=== PATIENT | female | born 1945 | race Caucasian/White ===

== ENCOUNTER 2016-11-03 08:55 | Day surgery (SDC) | payer OTHER ==
[~2016-11-03] VITALS: Ht 162.6 cm; Wt 45.5 kg
[~2016-11-03 08:55] MED LIST: LAMO100 PO; LEVO88TA2 PO; LITH300 PO; METR500T10 PO; PRAV40TA PO; Propranolol; cane
[2016-11-03 09:39] VITALS: BP 151/62; PULSE 65; RESP 20; TEMP 97.9; O2SAT 99
[2016-11-03] MEDS ORDERED: LEVO88TA2 PO (09:57)
[2016-11-03] MEDS ORDERED: LITH300T3 PO (09:57)
[2016-11-03] MEDS ORDERED: PRAV40TA PO (09:57)
[2016-11-03] MEDS ORDERED: LAMO100 PO (09:57)
[2016-11-03] MEDS ORDERED: SODIUM CHLOR 0.9% 1000 ML IV SCH (10:00)
[2016-11-03 10:50] VITALS: BP 147/52; PULSE 61; RESP 18; TEMP 97.9; O2SAT 96
--- NOTE | 2016-11-03 11:38 | RADRPT ---
EXAM DATE/TIME: 11/03/2016 10:24 [place] COMPARISON: No previous studies available for comparison. INDICATIONS : Pericardial effusion. RADIATION DOSE: 5.76 CTDIvol (mGy) MEDICAL HISTORY : Cardiovascular disease. SURGICAL HISTORY : None. ENCOUNTER: Initial ACUITY: 1 day PAIN SCALE: 0/10 LOCATION: Chest TECHNIQUE: Volumetric scanning of the chest was performed. Using automated exposure control and adjustment of the mA and/or kV according to patient size, radiation dose was kept as low as reasonab ly achievable to obtain optimal diagnostic quality images. FINDINGS: There are no suspicious lung lesions identified. There is a persistent small pericardial effusion ev ident that is too small aspirate by CT. There is no window to do such. Portion of liver and spleen identified are marcel e of focal defects. CONCLUSION: Small pericardial effusion measuring in greatest dimension approximately 1 cm, most of the fluid is i nferior. I do not have a safe window in which to drain. Osei Parker MD FACR on November 03, 2016 at 11:24 Board Certified Radiologist. This report was verified electronically.
== END 2016-11-03 11:00 | disposition home or self-care (01) ==
LOC: HRAD 08:55 → HRIP 09:07 → HRAD 11:00
PROVIDERS: ATTEND Internal Medicine Interventional Cardiology
DX: I31.3 Pericardial effusion (noninflammatory) (principal); I25.10 Atherosclerotic heart disease of native coronary artery without angina pectoris
CPT/HCPCS: 71250

== ENCOUNTER 2017-02-15 13:52 | Inpatient (IN) | payer OTHER, MEDICARE ==
[~2017-02-15] VITALS: Ht 160 cm; Wt 42.5 kg
[~2017-02-15 13:52] MED LIST changes: -LITH300 PO; +LITH300T3 PO; -METR500T10 PO
[2017-02-15 13:53] VITALS: BP 133/60; PULSE 104; RESP 20; TEMP 99; O2SAT 96
[2017-02-15] MEDS ORDERED: SODIUM CHLOR 0.9% 1000 ML INJ 1,000 ML IV ONE (15:15)
--- NOTE | 2017-02-15 15:47 | PD ---
HPI Chief Complaint: General Weakness Time Seen by Provider: 15:12 Travel History International Travel<30 days: No Contact w/Intl Traveler<30days: No Traveled to known affect area: No History of Present Illness HPI This is a 71-year-old female who has a history of bipolar disorder who presents to the emergency department with depression, weight loss and decreased appetite. Her daughter says that she is lost a significant amount of weight, and won't eat. She put food in her mouth but she won't swallow it. She says she has a long history of bipolar disorder and has required hospitalizations in the past. She says this is the worst she's ever seen her. The patient reports that she has a problem with herself. She doesn't have any pain or nausea. She does acknowledge being depressed and she says she's not been sleeping. Evidently her boyfriend was just diagnosed with lung cancer recently although the patient doesn't think this is impacting what's going on. She did recently have some changes to her medications but the family is not sure what they were. PFSH Past Medical History Arthritis: No Asthma: No Autoimmune Disease: No Blood Disorders: No Bipolar Disorder: Yes Anxiety: Yes Heart Rhythm Problems: No Cancer: No Cardiovascular Problems: Yes High Cholesterol: Yes Chemotherapy: No Chest Pain: No Congestive Heart Failure: Yes COPD: No Cerebrovascular Accident: No Coronary Artery Disease: Yes Diabetes: No Diminished Hearing: No Endocrine: Yes Gastrointestinal Disorders: Yes GERD: No Glaucoma: No Genitourinary: No Headaches: No Hepatitis: No Hiatal Hernia: No Hypertension: No Immune Disorder: Yes Kidney Stones: Yes Musculoskeletal: Yes Neurologic: Yes Psychiatric: No Reproductive: No Respiratory: No Immunizations Current: No Migraines: No Myocardial Infarction: No Radiation Therapy: No Renal Failure: No Seizures: No Sickle Cell Disease: No Sleep Apnea: No Thyroid Disease: Yes Ulcer: No ?: Not Menopausal: Yes Past Surgical History Abdominal Surgery: No (Kidney) AICD: No Appendectomy: No Arteriovenous Shunt: No Cardiac Surgery: No Cholecystectomy: No Ear Surgery: No Endocrine Surgery: No Eye Surgery: No Genitourinary Surgery: No Gynecologic Surgery: No Insulin Pump: No Joint Replacement: No Neurologic Surgery: Yes (CERVICAL FUSION) Oral Surgery: No Pacemaker: No Thoracic Surgery: Yes (cardiac cath diagnostic) Other Surgery: Yes Social History Alcohol Use: No Tobacco Use: Yes (1/2 PPD) Substance Use: No Allergies-Medications (Allergen,Severity, Reaction): Coded Allergies: Penicillin (Verified Allergy, Intermediate, Hives, 11/03/16) Contrast Media (Verified Allergy, Mild, PT DOES NOT REMEMBER, 11/03/16) Reported Meds & Prescriptions Reported Meds & Active Scripts Active [cane] Pt is in need of cane for gait disturbance and frequent falls. Please provide one. [Propranolol] could not remember dose but TID Reported Pravachol (Pravastatin) 40 Mg Tab 40 Mg PO DAILY [place] Carbonate 300 Mg Tab 300 Mg PO BID Levothyroxine (Levothyroxine Sodium) 88 Mcg Tab 88 Mcg PO DAILY Lamictal (Lamotrigine) 100 Mg Tab 100 Mg PO BID Review of Systems Except as stated in HPI: all other systems reviewed are Neg Physical Exam Narrative GENERAL: Frail appears older than stated age, unwell-appearing SKIN: Focused skin assessment warm and dry. HEAD: Atraumatic. Normocephalic. EYES: Pupils equal and round. No injection or drainage. ENT: Moist mucous membranes NECK: Trachea midline. CARDIOVASCULAR: Regular rate and rhythm. No murmur appreciated. RESPIRATORY: Clear to auscultation. Breath sounds equal bilaterally. GASTROINTESTINAL: Abdomen soft, non-tender, nondistended. MUSCULOSKELETAL: No obvious deformities. NEUROLOGICAL: Awake and alert. No obvious cranial nerve deficits. Moving all extremities. PSYCHIATRIC: Depressed mood, flat affect Data Data Last Documented VS Vital Signs Date Time Temp Pulse Resp B/P Pulse Ox O2 Delivery O2 Flow Rate FiO2 02/15/17 16:05 16 98 Room Air 02/15/17 13:53 99.0 104 133/60 Orders Complete Blood Count With Diff (02/15/17 15:12) Comprehensive Metabolic Panel (02/15/17 15:12) Drug Screen, Random Urine (02/15/17 15:12) Alcohol (Ethanol) (02/15/17 15:12) Sodium Chlor 0.9% 1000 Ml Inj (Ns 1000 M (02/15/17 15:15) Thyroid Stimulating Hormone (02/15/17 15:13) Lamictal (Lamotrigine) (02/15/17 15:13) Urinalysis - C+S If Indicated (02/15/17 15:13) Psych Screen (8/10/17 16:37) Labs Laboratory Tests Test 02/15/17 15:45 White Blood Count 6.9 TH/MM3 Red Blood Count 4.59 MIL/MM3 Hemoglobin 13.5 GM/DL Hematocrit 40.3 % Mean Corpuscular Volume 87.9 FL Mean Corpuscular Hemoglobin 29.4 PG Mean Corpuscular Hemoglobin 33.4 % Concent Red Cell Distribution Width 13.2 % Platelet Count 210 TH/MM3 Mean Platelet Volume 9.6 FL Neutrophils (%) (Auto) 70.8 % Lymphocytes (%) (Auto) 21.9 % Monocytes (%) (Auto) 5.8 % Eosinophils (%) (Auto) 0.6 % Basophils (%) (Auto) 0.9 % Neutrophils # (Auto) 4.9 TH/MM3 Lymphocytes # (Auto) 1.5 TH/MM3 Monocytes # (Auto) 0.4 TH/MM3 Eosinophils # (Auto) 0.0 TH/MM3 Basophils # (Auto) 0.1 TH/MM3 CBC Comment DIFF FINAL Differential Comment Urine Color YELLOW Urine Turbidity CLEAR Urine pH 5.5 Urine Specific [place] 1.019 Urine Protein 30 mg/dL Urine Glucose (UA) NEG mg/dL Urine Ketones 150 mg/dL Urine Occult Blood SMALL Urine Nitrite NEG Urine Bilirubin NEG Urine Urobilinogen LESS THAN 2.0 MG/DL Urine Leukocyte Esterase NEG Urine RBC 2 /hpf Urine WBC 1 /hpf Urine Mucus FEW /lpf Microscopic Urinalysis Comment CULT NOT INDICATED Sodium Level 138 MEQ/L Potassium Level 4.0 MEQ/L Chloride Level 101 MEQ/L Carbon Dioxide Level 20.1 MEQ/L Anion Gap 17 MEQ/L Blood Urea Nitrogen 16 MG/DL Creatinine 0.67 MG/DL Estimat Glomerular Filtration 87 ML/MIN Rate Random Glucose 71 MG/DL Calcium Level 9.9 MG/DL Total Bilirubin 0.4 MG/DL Aspartate Amino Transf 28 U/L (AST/SGOT) Alanine Aminotransferase 20 U/L (ALT/SGPT) Alkaline Phosphatase 107 U/L Total Protein 8.0 GM/DL Albumin 4.0 GM/DL Urine Opiates Screen NEG Urine Barbiturates Screen NEG Urine Amphetamines Screen NEG Urine Benzodiazepines Screen NEG Urine Cocaine Screen NEG Urine Cannabinoids Screen NEG Ethyl Alcohol Level 3 MG/DL MDM Medical Decision Making Medical Screen Exam Complete: Yes Emergency Medical Condition: Yes Interpretation(s) Temperature is 99.0, mild tachycardia No leukocytosis Electrolytes are reassuring Urinalysis: No infection Drug screen is negative Alcohol is negative Differential Diagnosis Bipolar disorder, depression, urinary tract infection, electrolyte abnormality Narrative Course This is a 71-year-old female who has a history of bipolar disorder who presents to the emergency department with decreased appetite as well as increasing depression. She appears very depressed on exam, makes poor eye contact, has flat affect, and doesn't appear well. Labs are all unremarkable. I do think this is related to her underlying psychiatric illness and she'll likely benefit from psychiatric admission. Vera Gonsalez MD Feb 15, 2017 15:47
[2017-02-15 16:11] LABS: AUTOMATED NEUTROPHIL # 4.9 TH/MM3 (1.8-7.7); BASOPHIL # 0.1 TH/MM3 (0-0.2); BASOPHIL % 0.9 % (0.0-2.0); EOSINOPHIL % 0.6 % (0.0-4.0); HEMATOCRIT 40.3 % (35.0-46.0); HEMO FLAGS DIFF FINAL; LYMPH % 21.9 % (9.0-44.0); LYMPHOCYTE # 1.5 TH/MM3 (1.0-4.8); MEAN CELL VOLUME 87.9 FL (80.0-100.0); MEAN CORPUSCULAR HEMOGLOBIN 29.4 PG (27.0-34.0); MEAN CORPUSCULAR HGB CONC 33.4 % (32.0-36.0); MONO % 5.8 % (0.0-8.0); NEUT % 70.8 % (16.0-70.0); PLATELET COUNT 210 TH/MM3 (150-450); RED BLOOD COUNT 4.59 MIL/MM3 (4.00-5.30); RED CELL DISTRIBUTION WIDTH 13.2 % (11.6-17.2); WHITE BLOOD COUNT 6.9 TH/MM3 (4.0-11.0)
[2017-02-15 16:22] LABS: BLOOD, URINE SMALL (NEG); COMMENT (UR) CULT NOT INDICATED; CULTURE IF INDICATED CULT NOT INDICATED; GLUCOSE,URINE NEG (NEG); KETONE, URINE 150 mg/dL (NEG); MUCUS URINE FEW /lpf (OCC); NITRITE,URINE NEG (NEG); PH, URINE 5.5 (5.0-8.5); URINE COLOR YELLOW (YELLW/STRAW)
[2017-02-15 16:30] LABS: ALT (GPT) 20 U/L (10-53); ANION GAP 17 MEQ/L (5-15); AST (GOT) 28 U/L (15-37); BICARBONATE 20.1 MEQ/L (21.0-32.0); BLOOD UREA NITROGEN 16 MG/DL (7-18); CHLORIDE 101 MEQ/L (98-107); GLOMERULAR FILTRATION RATE 87 ML/MIN (>89); SODIUM (NA) 138 MEQ/L (136-145)
[2017-02-15 16:32] LABS: ALCOHOL 3 MG/DL (0-5); ALKALINE PHOSPHATASE 107 U/L (45-117); TOTAL BILIRUBIN ADULT 0.4 MG/DL (0.2-1.0)
[2017-02-15 17:48] VITALS: BP 122/56; PULSE 69; RESP 18; O2SAT 97
--- NOTE | 2017-02-15 18:01 | PD ---
History of Present Illness Chief Complaint: General Weakness Time Seen by Provider: 17:00 Travel History International Travel<30 Days: No Contact w/Intl Traveler<30days: No Known affected area: No Legal Status Legal Status: Voluntary History of Present Illness: History of Present Illness HPI This is a 71-year-old female with a history of bipolar disorder, multiple psychiatric hospitalizations who presents to the emergency department on a voluntary status with complaints of depression,decreased appetite, poor intake with associated weight loss, low energy, anhedonia, no motivation, wanting to sleep all day but unable to do so, generalized weakness with increased difficulty walking. Recent stressors include her boyfriend of 30 years was just diagnosed with lung cancer although the patient doesn't think this isn't contributing to her depression. Her psychiatrist of many years, Dr. Schwab is retiring and the patient transferred her care to Dr. Patel. She recently had some changes to her medications including discontinuing [place] and Abilify. She tells me the new provider felt that she was was overmedicated. EMR is reviewed. no previous contact with [facility] psychiatry. Patient is seen . Daughter remains at bedside and provides most of the information as patient responds to most questions with " I don't know". Daughter reports that the patient has been depressed in the past but that this is the worse she has ever seen her. She also reports that patient has had medication induced tremors in the past. Patient is alert, oriented to person states it is the year 1999. Appears cachectic. Dressed in hospital gown and maintaining basic hygiene. She knows that [place] is the president. Her speech is very soft . She answers most questions with " i don't know " and defers to her daughter. Does not initiate interaction. Affect is blunted. Mood depressed. Denies any hallucinations. I cannot elicit any delusional content,no paranoia. She denies suicidal or homicidal ideation, intent or plan. Attention and concentration are decreased. PFSH Past Medical History Arthritis: No Asthma: No Autoimmune Disease: No Blood Disorders: No Bipolar Disorder: Yes Anxiety: Yes Heart Rhythm Problems: No Cancer: No Cardiovascular Problems: Yes High Cholesterol: Yes Chemotherapy: No Chest Pain: No Congestive Heart Failure: Yes COPD: No Cerebrovascular Accident: No Coronary Artery Disease: Yes Diabetes: No Diminished Hearing: No Endocrine: Yes Gastrointestinal Disorders: Yes GERD: No Glaucoma: No Genitourinary: No Headaches: No Hepatitis: No Hiatal Hernia: No Hypertension: No Immune Disorder: Yes Kidney Stones: Yes Musculoskeletal: Yes Neurologic: Yes Psychiatric: No Reproductive: No Respiratory: No Immunizations Current: No Migraines: No Myocardial Infarction: No Radiation Therapy: No Renal Failure: No Seizures: No Sickle Cell Disease: No Sleep Apnea: No Thyroid Disease: Yes Ulcer: No ?: Not Menopausal: Yes Past Surgical History Abdominal Surgery: No (Kidney) AICD: No Appendectomy: No Arteriovenous Shunt: No Cardiac Surgery: No Cholecystectomy: No Ear Surgery: No Endocrine Surgery: No Eye Surgery: No Genitourinary Surgery: No Gynecologic Surgery: No Insulin Pump: No Joint Replacement: No Neurologic Surgery: Yes (CERVICAL FUSION) Oral Surgery: No Pacemaker: No Thoracic Surgery: Yes (cardiac cath diagnostic) Other Surgery: Yes Psychiatric History Psychiatric History Hx Psychiatric Treatment: First psychiatric hospitalization forty years ago for what appears to be a depressed episode. Reports approximately 15 previous hosp with last one twenty years ago. Has been a patietn of dr Schwab until recent. Saw the UNDERWRITING ASSISTANT at dr. gray office. History of Inpatient Treatment: Yes Guns or firearms in home: No Social History Lives with her boyfriend of 30 years. Daughter lives out of state. Hx Alcohol Use: No Hx Tobacco Use: Yes (1/2 PPD) Hx Substance Use: No Hx of Substance Use Treatment: No Family Psychiatric History Unknown Allergies-Medications (Allergen,Severity, Reaction): Coded Allergies: Penicillin (Verified Allergy, Intermediate, Hives, 11/03/16) Contrast Media (Verified Allergy, Mild, PT DOES NOT REMEMBER, 11/03/16) Reported Meds & Prescriptions Reported Meds & Active Scripts Active [cane] Pt is in need of cane for gait disturbance and frequent falls. Please provide one. [Propranolol] could not remember dose but TID Reported Pravachol (Pravastatin) 40 Mg Tab 40 Mg PO DAILY [place] Carbonate 300 Mg Tab 300 Mg PO BID Levothyroxine (Levothyroxine Sodium) 88 Mcg Tab 88 Mcg PO DAILY Lamictal (Lamotrigine) 100 Mg Tab 100 Mg PO BID Review of Systems Constitutional: COMPLAINS OF: Fatigue, Weight loss Neurologic: COMPLAINS OF: Tremor (intermittent. Not present during this examination.), Poor Balance Psychiatric: COMPLAINS OF: Depression Exam Alert: Yes [place]: Person, Place, Date (partial) Mood: Depressed (severely depressed mood) Affect: Blunted Speech: Clear (very soft and impoverished) Eye Contact: Indirect Memory Intact: Comment (Not formally tetsed) Hallucinations: Other (deneis) Delusions: No Suicidal: Ideation (deneis ) Homicidal: Ideation (deneis) Insight/Judgement Fair. Not impaired MDM Medical Decision Making Medical Record Reviewed: Yes Assessment/Plan This is a 71-year-old female with a history of bipolar disorder, multiple psychiatric hospitalizations who presents to the emergency department on a voluntary status with complaints of depression,decreased appetite, poor intake with associated weight loss, low energy, anhedonia, no motivation, wanting to sleep all day but unable to do so, generalized weakness with increased difficulty walking. At this time the patient meets criteria for increased level of care in inpatient setting for further evaluation, mood stabilization and adjustment of current psychiatric medications. She agrees to voluntary admission. Orders Complete Blood Count With Diff (02/15/17 15:12) Comprehensive Metabolic Panel (02/15/17 15:12) Drug Screen, Random Urine (02/15/17 15:12) Alcohol (Ethanol) (02/15/17 15:12) Sodium Chlor 0.9% 1000 Ml Inj (Ns 1000 M (02/15/17 15:15) Thyroid Stimulating Hormone (02/15/17 15:13) Lamictal (Lamotrigine) (02/15/17 15:13) Urinalysis - C+S If Indicated (02/15/17 15:13) Psych Screen (02/15/17 16:37) Results Vital Signs Date Time Temp Pulse Resp B/P Pulse Ox O2 Delivery O2 Flow Rate FiO2 02/15/17 17:48 69 18 122/56 97 Room Air 02/15/17 16:05 16 98 Room Air 02/15/17 13:53 99.0 104 20 133/60 96 Room Air Laboratory Tests Test 02/15/17 15:45 White Blood Count 6.9 Red Blood Count 4.59 Hemoglobin 13.5 Hematocrit 40.3 Mean Corpuscular Volume 87.9 Mean Corpuscular Hemoglobin 29.4 Mean Corpuscular Hemoglobin 33.4 Concent Red Cell Distribution Width 13.2 Platelet Count 210 Mean Platelet Volume 9.6 Neutrophils (%) (Auto) 70.8 Lymphocytes (%) (Auto) 21.9 Monocytes (%) (Auto) 5.8 Eosinophils (%) (Auto) 0.6 Basophils (%) (Auto) 0.9 Neutrophils # (Auto) 4.9 Lymphocytes # (Auto) 1.5 Monocytes # (Auto) 0.4 Eosinophils # (Auto) 0.0 Basophils # (Auto) 0.1 CBC Comment DIFF FINAL Differential Comment Urine Color YELLOW Urine Turbidity CLEAR Urine pH 5.5 Urine Specific [place] 1.019 Urine Protein 30 Urine Glucose (UA) NEG Urine Ketones 150 Urine Occult Blood SMALL Urine Nitrite NEG Urine Bilirubin NEG Urine Urobilinogen LESS THAN 2.0 Urine Leukocyte Esterase NEG Urine RBC 2 Urine WBC 1 Urine Mucus FEW Microscopic Urinalysis Comment CULT NOT INDICATED Sodium Level 138 Potassium Level 4.0 Chloride Level 101 Carbon Dioxide Level 20.1 Anion Gap 17 Blood Urea Nitrogen 16 Creatinine 0.67 Estimat Glomerular Filtration 87 Rate Random Glucose 71 Calcium Level 9.9 Total Bilirubin 0.4 Aspartate Amino Transf 28 (AST/SGOT) Alanine Aminotransferase 20 (ALT/SGPT) Alkaline Phosphatase 107 Total Protein 8.0 Albumin 4.0 Urine Opiates Screen NEG Urine Barbiturates Screen NEG Urine Amphetamines Screen NEG Urine Benzodiazepines Screen NEG Urine Cocaine Screen NEG Urine Cannabinoids Screen NEG Ethyl Alcohol Level 3 Diagnosis Primary Impression: Bipolar disorder Admitting Information Admitting Physician Requests: Admit Cha Acevedo [facility] Feb 15, 2017 18:01
[2017-02-15] MEDS ORDERED: NORT25CA PO (18:05)
[2017-02-15] MEDS ORDERED: PROP10TA6 PO (18:05)
[2017-02-15] MEDS ORDERED: ARIP1TAB7 PO (18:05)
[2017-02-15] MEDS ORDERED: LAMO150 PO (18:05)
[2017-02-15] MEDS ORDERED: MAGNESIUM HYDROXIDE SUSP 30 ML CUP PO PRN (18:15)
[2017-02-15] MEDS ORDERED: ALUMINUM/MAGNESIUM/SIMETH 30 ML CUP PO PRN (18:15)
[2017-02-15 19:08] VITALS: BP 139/63; PULSE 73; RESP 16; O2SAT 100
[2017-02-15 20:30] VITALS: BP 141/62; PULSE 75; RESP 16; TEMP 97.4; O2SAT 97
[2017-02-16 06:20] VITALS: BP 125/56; PULSE 73; RESP 16; TEMP 97.7; O2SAT 100
[2017-02-16 11:52] LABS: BLOOD UREA NITROGEN 11 MG/DL (7-18); GLOMERULAR FILTRATION RATE 78 ML/MIN (>89); POTASSIUM 3.8 MEQ/L (3.5-5.1); SODIUM (NA) 137 MEQ/L (136-145)
[2017-02-16 11:53] LABS: ANION GAP 15 MEQ/L (5-15); BICARBONATE 17.5 MEQ/L (21.0-32.0); CHLORIDE 105 MEQ/L (98-107); HDL CHOLESTEROL 82.9 MG/DL (40.0-60.0); LDL CHOLESTEROL 75 MG/DL (0-99)
[2017-02-16 14:18] LABS: HEMATOCRIT 40.8 % (35.0-46.0); MEAN CELL VOLUME 90.2 FL (80.0-100.0); MEAN CORPUSCULAR HEMOGLOBIN 28.6 PG (27.0-34.0); MEAN CORPUSCULAR HGB CONC 31.7 % (32.0-36.0); PLATELET COUNT 203 TH/MM3 (150-450); RED BLOOD COUNT 4.53 MIL/MM3 (4.00-5.30); RED CELL DISTRIBUTION WIDTH 13.5 % (11.6-17.2); REVIEW FLAG FINAL; WHITE BLOOD COUNT 6.5 TH/MM3 (4.0-11.0)
--- NOTE | 2017-02-16 15:43 | PD.CONS ---
HPI Service [facility] Hospitalists Consult Requested By Mitch Cruz M.D. Reason for Consult Medical management. Primary Care Physician Eugene Cook MD Diagnoses: History of Present Illness Written by Hari Nogueira PA-C, acting as scribe for Dr. Bam Dos Santos on 02/16/17 at 15:40. Ms. Martins denied having any medical history. However, per the medical record she is reported to have history of bipolar disease, cardiovascular disease, congestive heart failure, and hypothyroidism. Ms. Martins did not provide much information about herself, with many answers being "I don't know." As such, history is obtained from the medical record. Ms. Martins was brought [place] [facility] [place] family on 02/14/17 for worsening depression. It is reported she has had decreased food and fluid intake for several weeks. Medical record cites pt's daughter as this being "the worst depression." Pt is reported to take food into her mouth but not swallow. Dr. Cruz has consulted the Hospitalist team to provide medical management. At time of interview pt spoke in a soft voice, with flat affect. She denied fever, nausea, vomiting, body aches, chills, cough, shortness of breath, or NVD. She did endorse difficulty swallowing.She reported having been a smoker (1/ 2 ppd) for "a long time"; she could not recall when she stopped smoking. She was able to report being in [facility] and her date of . Review of Systems ROS Limitations: Poor Historian Except as stated in HPI: all other systems reviewed are Neg Past Family Social History Allergies: Coded Allergies: Penicillin (Verified Allergy, Intermediate, Hives, 11/03/16) Contrast Media (Verified Allergy, Mild, PT DOES NOT REMEMBER, 11/03/16) Past Medical History Bipolar disease Cardiovascular disease Congestive heart failure Hypothyroidism. Past Surgical History Right nephrectomy Cardiac catheterization Cervical fusion. Reported Medications Reported Meds & Active Scripts Active Reported Abilify (Aripiprazole) 20 Mg Tab 20 Mg PO DAILY Nortriptyline (Nortriptyline HCl) 25 Mg Cap 25 Mg PO HS Lamictal (Lamotrigine) 150 Mg Tab 150 Mg PO HS Propranolol (Propranolol HCl) 10 Mg Tab 10 Mg PO BID Pravachol (Pravastatin) 40 Mg Tab 40 Mg PO DAILY Levothyroxine (Levothyroxine Sodium) 88 Mcg Tab 88 Mcg PO DAILY Active Ordered Medications Current Medications Medications (Trade) Dose Ordered Sig/Dasia Route Start Time Stop Time Status Last Admin (Tylenol) 650 mg Q4H PRN PO 02/15/17 18:15 (Milk Of Magnesia Liq) 30 ml DAILY PRN PO 02/15/17 18:15 (Mag-Al Plus Susp Liq) 30 ml Q6H PRN PO 02/15/17 18:15 (LaMICtal) 150 mg HS PO 02/16/17 21:00 (Synthroid) 88 mcg DAILY@06 PO 02/17/17 06:00 (Pravachol) 40 mg DAILY PO 02/17/17 09:00 Family History Pt said she could not recall medical history of parents or her siblings. Social History Rare alcohol use was endorsed. Pt noted she smoked 1/2 ppd (medical records indicated smoking 30 years, stopped in 2011). Pt denied illicit/recreational drug use. Physical Exam Vital Signs Vital Signs Date Time Temp Pulse Resp B/P Pulse Ox O2 Delivery O2 Flow Rate FiO2 02/16/17 06:20 97.7 73 16 125/56 100 02/15/17 20:30 97.4 75 16 141/62 97 02/15/17 19:08 73 16 139/63 100 Room Air 02/15/17 17:48 69 18 122/56 97 Room Air 02/15/17 16:05 16 98 Room Air Physical Exam GENERAL: This is a cachectic, well-developed patient, in no apparent distress. SKIN: No rashes, ecchymoses or lesions. Cool and dry. HEAD: Atraumatic. Normocephalic. EYES: Pupils equal round and reactive. Extraocular motions intact. No scleral icterus. No injection or drainage. ENT: Nose without bleeding or purulent drainage Airway patent. NECK: Trachea midline. No lymphadenopathy. Supple and nontender. CARDIOVASCULAR: Regular rate and rhythm without murmurs, gallops, or rubs. RESPIRATORY: Clear to auscultation. Breath sounds equal bilaterally. No wheezes , rales, or rhonchi. GASTROINTESTINAL: Abdomen soft, non-tender, nondistended. No hepato-splenomegaly , or palpable masses. No guarding. MUSCULOSKELETAL: Extremities without clubbing, cyanosis, or edema. No joint tenderness, effusion, or edema noted. Muscle mass decreased. NEUROLOGICAL: Awake and alert. Cranial nerves II through XII intact. Motor and sensory grossly within normal limits. Five out of 5 muscle strength in all muscle groups. Speech soft and fluent. Laboratory Laboratory Tests Test 02/15/17 02/16/17 15:45 10:07 White Blood Count 6.9 6.5 Red Blood Count 4.59 4.53 Hemoglobin 13.5 12.9 Hematocrit 40.3 40.8 Mean Corpuscular Volume 87.9 90.2 Mean Corpuscular Hemoglobin 29.4 28.6 Mean Corpuscular Hemoglobin 33.4 31.7 Concent Red Cell Distribution Width 13.2 13.5 Platelet Count 210 203 Mean Platelet Volume 9.6 9.1 Neutrophils (%) (Auto) 70.8 Lymphocytes (%) (Auto) 21.9 Monocytes (%) (Auto) 5.8 Eosinophils (%) (Auto) 0.6 Basophils (%) (Auto) 0.9 Neutrophils # (Auto) 4.9 Lymphocytes # (Auto) 1.5 Monocytes # (Auto) 0.4 Eosinophils # (Auto) 0.0 Basophils # (Auto) 0.1 CBC Comment DIFF FINAL Differential Comment Urine Color YELLOW Urine Turbidity CLEAR Urine pH 5.5 Urine Specific [place] 1.019 Urine Protein 30 Urine Glucose (UA) NEG Urine Ketones 150 Urine Occult Blood SMALL Urine Nitrite NEG Urine Bilirubin NEG Urine Urobilinogen LESS THAN 2.0 Urine Leukocyte Esterase NEG Urine RBC 2 Urine WBC 1 Urine Mucus FEW Microscopic Urinalysis Comment CULT NOT INDICATED Sodium Level 138 137 Potassium Level 4.0 3.8 Chloride Level 101 105 Carbon Dioxide Level 20.1 17.5 Anion Gap 17 15 Blood Urea Nitrogen 16 11 Creatinine 0.67 0.74 Estimat Glomerular Filtration 87 78 Rate Random Glucose 71 62 Calcium Level 9.9 9.4 Total Bilirubin 0.4 Aspartate Amino Transf 28 (AST/SGOT) Alanine Aminotransferase 20 (ALT/SGPT) Alkaline Phosphatase 107 Total Protein 8.0 Albumin 4.0 Thyroid Stimulating Hormone 0.222 3rd Gen Urine Opiates Screen NEG Urine Barbiturates Screen NEG Urine Amphetamines Screen NEG Urine Benzodiazepines Screen NEG Urine Cocaine Screen NEG Urine Cannabinoids Screen NEG Ethyl Alcohol Level 3 Triglycerides Level 122 Cholesterol Level 182 LDL Cholesterol 75 HDL Cholesterol 82.9 Cholesterol/HDL Ratio 2.19 Vitamin B12 Level 1767 25-Hydroxy Vitamin D Total 15.5 Result Diagram: 02/16/17 1007 02/16/17 1007 Assessment and Plan Assessment and Plan Ms. Martins denied having any medical history. However, per the medical record she is reported to have history of bipolar disease, cardiovascular disease, congestive heart failure, and hypothyroidism. Ms. Martins did not provide much information about herself, with many answers being "I don't know." As such, history is obtained from the medical record. Ms. Martins was brought to [facility] [place] family on 02/14/17 for worsening depression. It is reported she has had decreased food and fluid intake for several weeks. Medical record cites pt's daughter as this being "the worst depression." Pt is reported to take food into her mouth but not swallow. Dr. Cruz has consulted the Hospitalist team to provide medical management. Major Depressive Episode -Treatment per psychiatry Anorexia Dysphagia -GI consulted, awaiting their input -Speech language pathologist consulted for swallow study -Game Show Host consulted for calorie count. Hypothyroidism - Home regimen Levothyroxine 0.88 mcg/day -TSH level 0.222, decreased levothyroxine to 50 mcg po daily Hyperlipidemia -Continue home regimen of Pravachol 40 mg PO daily. Thank you for the consult. Hospitalist team will continue to follow. This note was transcribed by fredrick Nogueira PA-C. I, Dr. Myah Dos Santos personally performed the history, physical exam, and medical decision making; and confirmed the accuracy of the information in the transcribed note. Authenticated by Dr. Myah Dos Santos on 02/16/17 at 15:40. Discussed Condition With Patient. Hari Nogueira Jr. Feb 16, 2017 15:43 Myah Dos Santos MD Feb 17, 2017 09:09
[2017-02-16 17:12] LABS: HEMOGLOBIN A1b 1.2 %; HEMOGLOBIN LA1C 1.6 %; HEMOGLOBIN P3 3.1 %
--- NOTE | 2017-02-16 17:22 | HHI.HP ---
Provisional Diagnosis Admission Date Feb 15, 2017 at 18:15 [place] I. Bipolar disorder, depressed episode, severe with psychotic features; rule out pseudodementia secondary to depression; rule major neurocognitive disorder, rule out depression secondary to medical disorder. [place] II. deferred [place] III. cardiovascular disease, CHF, hypothyroidsim [place] IV. good social support, chronic mental illness [place] V. 35 Certification of Person's Competence To Provide Express and Informed Consent I have personally examined Suzanna Martins , a person being served at [facility] on, Feb 16, 2017 17:07. Express and informed consent means consent voluntarily given in writing, by a competent person, after sufficient explanation and disclosure of the subject matter involved to enable the person to make a knowing and willful decision without any element of force, fraud, deceit, duress, or other form of constraint or coercion. This person is 18 years of age or older, is not now known to be incompetent to consent to treatment with a guardian advocate, and does not have a health care surrogate or proxy currently making medical treatment decisions. I have found this person to be one of the following: [x] Competent to provide express and informed consent, as defined above, for voluntary admission to this facility and is competent to provide express and informed consent for treatment. He/she has the consistent capacity to make well reasoned, willful, and knowing decisions concerning his or her medical or mental health treatment. The person fully and consistently understands the purpose of the admission for examination/placement and is fully capable of personally exercising all rights assured [place] Incompetent to provide express and informed consent to voluntary admission, and this is incompetent to provide express and informed consent to treatment. The person must be transferred to involuntary status and a petition for a guardian advocate filed with the Circuit Court. [] Refusing to provide express and informed consent to voluntary admission but is competent to provide express and informed consent for treatment. The person must be discharged or transferred to involuntary status. Form shall be completed within 24 hours of a person's arrival at the receiving facility and filed in the clinical record of each person: 1. Admitted on a voluntary basis 2. Permitted to provide express and informed consent to his/her own treatment 3. Allowed to transfer from involuntary to voluntary status 4. Prior to permitting a person to consent to his or her own treatment after having been previously found incompetent to consent to treatment. History of Present Illness Capacity: Has Capacity HPI Patient is a 71-year-old woman, , currently living with her boyfriend is 27 years, past psychiatric history of bipolar disorder, with multiple hospitalizations, no prior suicide attempts, with past medical history of cardio vascular disease, CHF and hypothyroidism was brought to the hospital by family on 02/14/17 for worsening depression and decrease food fluid intake for several weeks and was admitted to the medical/psychiatric unit for further evaluation and management. As per ED note patient had endorsed feeling depressed with decreased appetite and energy, feeling anhedonic, increased sleep. Stressors include boyfriend recently diagnosed with lung cancer, recent change in outpatient psychiatrist, and recent change in medications along with recent passing of her pet. Patient was found lying in hospital bed watching television but was able to engage in interview with commercial lines underwriter. After discussion with nursing patient noted to refuse to eat and drink. Patient was unable to state why she has been brought to the hospital. She states that she has difficulty swallowing for a long time by her daughter because it was time to get better. Patient reports for the past couple weeks she having decreased sleep, energy and concentration, appetite with mood being bad but cannot recall reasons why. Patient states that she has been feeling depressed all the time, its the way I am. Patient also reports having had suicidal ideations all the time but is unable to have elaborate why. Patient states that her reason to live are to be happy, her family and her maximus. Patient also reports that she has been becoming more and more forgetful. Patient reports hearing noises and sometimes seeing things but was unable to elaborate on either. Patient reports feeling paranoid of everybody but did not elaborate. Patient is a poor historian with limited engagement in interview today. Patient is time states feeling okay, continues to endorse suicidal ideations, denies homicidal ideations, perceptual disturbances endorses paranoid ideations. Patient is alert and oriented to person and place only. Mini-Mental exam was attempted but the patient was unable to fully participate at this time. Collateral contact Ofe Martins (daughter) - no number provided. Past psychiatric history: Previous psychiatric diagnoses of bipolar disorder, multiple hospitalizations, no previous suicide attempts. Unable to recall current medication regimen, recent change in outpatient provider (Dr. Barragan) recent visit which medications were changed. Family history: Unable to assess as patient was not able to recall. Substance use history: Patient previous tobacco use states having quit years ago , no alcohol or use illegal substance use. Past medical history patient unable to recall medical issues but as per chart with cardio vascular disease, congestive heart failure, hypothyroidism. Allergies: Patient unable to recall as per chart penicillin and contrast medium Social history, , lives with boyfriend (Robin), for the past 27 years. Review of Systems ROS Limitations: Poor Historian Except as stated in HPI: all other systems reviewed are Neg Past Psych History Psychological trauma history unable to assess as patient with limited participation in interview Violence risk - others (6 mos) low Violence risk - self (6 mos) low Substance Abuse History Drugs/Alcohol past 12 months Remote history of tobacco use, no previous alcohol or illicit drug use. Past Family Social History Coded Allergies: Penicillin (Verified Allergy, Intermediate, Hives, 11/03/16) Contrast Media (Verified Allergy, Mild, PT DOES NOT REMEMBER, 11/03/16) Reported Medications Aripiprazole (Abilify)20 Mg Tab20 Mg PO DAILY #30 TAB Ref 0 02/15/17 Nortriptyline 25 Mg Cap25 Mg PO HS #30 CAP Ref 0 02/15/17 Lamotrigine (Lamictal)150 Mg [id number] Mg PO HS #60 TAB Ref 0 02/15/17 Propranolol 10 Mg Tab10 Mg PO BID #60 TAB Ref 0 02/15/17 Pravastatin (Pravachol)40 Mg Tab40 Mg PO DAILY #30 TAB Ref 0 11/03/16 Levothyroxine 88 Mcg Tab88 Mcg PO DAILY #30 TAB Ref 0 11/03/16 Discontinued Reported Medications [place] Carbonate 300 Mg [id number] Mg PO BID Ref 0 11/03/16 Lamotrigine (Lamictal)100 Mg [id number] Mg PO BID #60 TAB Ref 0 11/03/16 Current Medications Medications (Trade) Dose Ordered Sig/Dasia Route Start Time Stop Time Status Last Admin (Tylenol) 650 mg Q4H PRN PO 02/15/17 18:15 (Milk Of Magnesia Liq) 30 ml DAILY PRN PO 02/15/17 18:15 (Mag-Al Plus Susp Liq) 30 ml Q6H PRN PO 02/15/17 18:15 (LaMICtal) 150 mg HS PO 02/16/17 21:00 (Pravachol) 40 mg DAILY PO 02/17/17 09:00 (Synthroid) 50 mcg DAILY@0600 PO 02/17/17 06:00 UNV Family History Patient does not recall Social History , domiciled wtih boyfriend for the past 27 years. Patient's Strengths (min. 2) verbal, good social support Physical Exam Patient examined in ED but upon my examination today patient appears malnutritioned with no gross motor abnormalities, psychomotor retardation noted. Vital Signs Vital Signs Date Time Temp Pulse Resp B/P Pulse Ox O2 Delivery O2 Flow Rate FiO2 02/16/17 06:20 97.7 73 16 125/56 100 02/15/17 19:08 Room Air I/O 02/15/17 02/15/17 02/15/17 07:59 15:59 23:59 Intake Total 0 ml Balance 0 ml Lab Results Labs reviewed. Laboratory Tests Test 02/15/17 02/16/17 15:45 10:07 Neutrophils (%) (Auto) 70.8 % (16.0-70.0) Urine Protein 30 mg/dL (NEG-TRACE) Urine Ketones 150 mg/dL (NEG) Urine Occult Blood SMALL (NEG) Urine Mucus FEW /lpf (OCC) Carbon Dioxide Level 20.1 MEQ/L 17.5 MEQ/L (21.0-32.0) (21.0-32.0) Anion Gap 17 MEQ/L (5-15) Estimat Glomerular Filtration 87 ML/MIN (>89) 78 ML/MIN (>89) Rate Random Glucose 71 MG/DL 62 MG/DL (74-106) (74-106) Thyroid Stimulating Hormone 0.222 uIU/ML 3rd Gen (0.358-3.740) Mean Corpuscular Hemoglobin 31.7 % Concent (32.0-36.0) HDL Cholesterol 82.9 MG/DL (40.0-60.0) Vitamin B12 Level 1767 PG/ML (193-986) 25-Hydroxy Vitamin D Total 15.5 ng/ML (30-100) Mental Status Examination Appearance Patient appears stated age, noted to be malnutrition and with thin habitus, Lamictal hospital bed, calm and cooperative with interview. Patient noted to be a poor historian. Fair eye contact. Speech: Slow Orientation: Person, Place Memory: Impaired (describe) (patient with difficulty with immediate and recent memory) Thought Process: Other (concrete) Language Fluent but nonspontaneous Fund of Knowledge Unable to assess due to patient's limited cooperation during interview Hallucination Type: Auditory (reports hearing noises), Visual (reports seeing things but was unable to elaborate) Attention and Concentration: Other (fair attention but poor concentration) Suicidal Ideation: Yes Previous Suicide Attempts: No Homicidal Ideation: No Previous Homicide Attempts: No Insight: Poor Judgment: Poor Affect: Other (blunted) Affect if Inappropriate: Blunt Mood: Sad Assessment & Plan Problem List: (1) Bipolar disorder, curr episode depressed, severe, w/psychotic features ICD Code: F31.5 Assessment & Plan Estimated LOS: 5-7 days. Patient at this time endorsing depressive symptoms along with suicidal ideations but noted to be a poor historian minimally interactive with interview. Patient appears to have some cognitive deficits which may be due to dementia but also pseudodementia secondary to depression must be ruled out. Hospitalist consult to assess and manage medical issues placed. Occupational therapy and physical therapy consult placed to evaluate along with speech and swallow evaluation and nutritional consult. Patient to continue lamotrigine 150 mg by mouth at bedtime for mood stabilization along with pravastatin 40 mg by mouth daily for hyperlipidemia, levothyroxine 50 g for hypothyroidism. Will hold antipsychotic for now until EKG reviewed. EKG ordered Well consider ziprasidone to address psychosis if EKG with no abnormal cardiac findings. Monitor for medication response adverse drug reactions. Brief supportive psychotherapy provided. Collateral pending. Discharge planning in progress. Discharge Planning In progress Mitch Cruz MD Feb 16, 2017 17:22
[2017-02-16 18:21] VITALS: BP 115/53; PULSE 88; RESP 18; TEMP 98.1; O2SAT 97
[2017-02-16] MEDS: lamoTRIgine 100 MG TAB PO SCH (21:00)
--- NOTE | 2017-02-16 22:02 | MB ---
cc: CHELSEA BURT MD, DR., SULLIVAN, HAROLD H. MD DATE OF CONSULTATION 02/16/17 REASON FOR CONSULTATION Dysphagia. HISTORY OF PRESENT ILLNESS The patient is a 71 year old white female who was admitted to the hospital because of depression. She has bipolar disorder. She reports that she has been having difficulty swallowing. She does not clearly identify painful swallowing. She says her difficulty is a with liquids and solids. Her family is with her and encourages her to speak the truth regarding her symptoms as she tends to exaggerate. Her family does report that she underwent EGD in the past with what sounds like esophageal dilatation that helped her swallowing tremendously. That was when she was feeling better with her depression. There is no history of hematemesis or melena. There is no abdominal discomfort. PAST MEDICAL HISTORY 1. Coronary artery disease for which she had coronary artery bypass surgery. 2. Hypothyroidism. PAST SURGICAL HISTORY 1. Cervical fusion 2. Right nephrectomy MEDICATIONS Current 1. Abilify 2. Nortriptyline 3. Lamictal 4. Propranolol 5. Pravachol 6. Levothyroxine. ALLERGIES PENICILLIN CONTRAST MEDIA FAMILY HISTORY She cannot recall any family history SOCIAL HISTORY See does not smoke cigarettes, having stopped five years ago. She denies alcohol or illicit drug abuse. REVIEW OF SYSTEMS The patient is very slow to respond, but does not appear to have any symptoms of headache, earache, chest pain, shortness of breath, abdominal pain or pain in her extremities. Otherwise complete review of systems is negative. PHYSICAL EXAMINATION GENERAL: She is a depressed appearing white female, very thin but otherwise no apparent distress. Her family is with her and supportive. She does engage especially with her family. HEENT: Negative. There is no jaundice. NECK: Supple. There is no discomfort in the throat. CHEST: Clear to auscultation. CARDIAC: Heart sounds are normal. ABDOMEN: Soft and nontender. EXTREMITIES: Without cyanosis and no clubbing. There is no edema. NEUROLOGIC: Grossly is normal. LABORATORY DATA CBC is normal. Chemistries are normal. IMPRESSION 1. Dysphagia which apparently has responded to esophageal dilatation in the past. 2. Bipolar disorder with depressive symptoms currently 3. She is not taking in much food while on the psychiatric floor and appears quite thin, although not definitely malnourished. PLAN 1. We will set up an EGD with esophageal dilatation and try to do that tomorrow so that the patient may begin to eat normally while she is undergoing her treatment. We will obtain consent and keep the patient n.p.o. after midnight. Vicente Bauman MD [facility]/ /7:11 PM /9:48 PM
[2017-02-17 05:01] VITALS: BP 145/60; PULSE 91; RESP 16; TEMP 97.4; O2SAT 94
[2017-02-17] MEDS: LEVOTHYROXINE SODIUM 50 MCG TAB PO SCH (05:27)
[2017-02-17] MEDS ORDERED: LEVOTHYROXINE SODIUM 88 MCG TAB PO SCH (06:00)
[2017-02-17] MEDS: PRAVASTATIN SOD 40 MG TAB PO SCH (09:00)
--- NOTE | 2017-02-17 10:56 | HHI.PYPN ---
Subjective Remarks Patient seen for follow, chart reviewed. After discussion with nursing reported patient had difficult sleeping last evening he slept only 2 hours. Patient was seen by GI consult service and had recommended EGD which at this time is refusing. Patient seen lying in hospital bed noted to be calm and cooperative in interview, is able to engage in interview. Patient states that she continues to feel "the same", recalling having visited by family and when asked if she had been feeling happy to see them patient positive did not as a for couple seconds but then later said yes it was. Patient continues to appear on a diabetic, depressed with psychomotor retardation. Recommendations by GI consultation was discussed with patient which at this time is refusing. Patient was encouraged to consider recommendations as to help improve her ability to swallow which in turn would help ease her ability to be able to have improved oral intake. Patient states she will continue to consider it for today. Review of Systems Except as stated in HPI: all other systems reviewed are Neg Objective Alert: Yes [place]: Person, Place, Date (partial) Mood: Depressed (severely depressed mood) Affect: Flat Memory Intact: Comment (Not formally tetsed) Hallucinations: Other (denies) Delusions: No Delusion Type: Other (denies) Suicidal: Ideation (deneis ) Homicidal: Ideation (deneis) Insight/Judgment Limited insight, fair impulse control, poor judgment Labs Laboratory Tests Test 02/15/17 02/16/17 15:45 10:07 Neutrophils (%) (Auto) 70.8 % (16.0-70.0) Urine Protein 30 mg/dL (NEG-TRACE) Urine Ketones 150 mg/dL (NEG) Urine Occult Blood SMALL (NEG) Urine Mucus FEW /lpf (OCC) Carbon Dioxide Level 20.1 MEQ/L 17.5 MEQ/L (21.0-32.0) (21.0-32.0) Anion Gap 17 MEQ/L (5-15) Estimat Glomerular Filtration 87 ML/MIN (>89) 78 ML/MIN (>89) Rate Random Glucose 71 MG/DL 62 MG/DL (74-106) (74-106) Thyroid Stimulating Hormone 0.222 uIU/ML 3rd Gen (0.358-3.740) Mean Corpuscular Hemoglobin 31.7 % Concent (32.0-36.0) HDL Cholesterol 82.9 MG/DL (40.0-60.0) Vitamin B12 Level 1767 PG/ML (193-986) 25-Hydroxy Vitamin D Total 15.5 ng/ML (30-100) Vitals/IOs Vital Signs Date Time Temp Pulse Resp B/P Pulse Ox O2 Delivery O2 Flow Rate FiO2 02/17/17 05:01 97.4 91 16 145/60 94 02/15/17 19:08 Room Air Intake and Output 02/16/17 02/16/17 02/17/17 08:00 16:00 00:00 Intake Total 360 ml 120 ml 360 ml Output Total 350 ml Balance 360 ml 120 ml 10 ml Assessment & Plan Problem List: (1) Bipolar disorder, curr episode depressed, severe, w/psychotic features ICD Code: F31.5 Assessment & Plan Patient at this time continues to endorse depressive symptoms, appears with anhedonia and psychomotor retardation. Patient at this time refusing to accept EGD as recommended by GI consultation to help improve ability to swallow. Patient continues to have little or no oral intake. If patient refuses intervention at this time patient to be continued to be encouraged to improve intake by mouth. Patient will continue on Lamictal 150 mg by mouth twice a day for mood stabilization and will be started on mirtazapine 7.5 g at bedtime for depression. Monitor for medication response and possible adverse drug reactions. Supportive psychotherapy provided. Repetitious as per primary medical team. Consults appreciated. Justification for Cont. Inpt. Patient at risk for further decompensation if it lower level of care Discharge Planning In progress Mitch Cruz MD Feb 17, 2017 10:56
[2017-02-17] MEDS ORDERED: PILL SPLITTER OTHER PRN (11:15)
--- NOTE | 2017-02-17 16:29 | HHI.GIFU ---
Subjective Remarks Pt sitting in bed in no apparent distress, drinking apple juice. Can drink with small sips. was to have EGD today but ate. Says she has pain all over ( Meri Melendez) Objective Vitals I&O Vital Signs Date Time Temp Pulse Resp B/P Pulse Ox O2 Delivery O2 Flow Rate FiO2 02/17/17 05:01 97.4 91 16 145/60 94 02/16/17 18:21 98.1 88 18 115/53 97 I/O 02/16/17 02/16/17 02/16/17 02/17/17 02/17/17 02/17/17 07:00 15:00 23:00 07:00 15:00 23:00 Intake Total 360 ml 120 ml 360 ml 0 ml 240 ml Output Total 350 ml Balance 360 ml 120 ml 10 ml 0 ml 240 ml Intake Oral 360 ml 120 ml 360 ml 0 ml 240 ml Output Urine Total 350 ml # Voids 0 1 1 # Bowel Movements 0 0 Physical Exam HEENT: PERRL; normocephalic; atraumatic; no jaundice. CHEST: CTA CARDIAC: RRR ABDOMEN: Soft, nondistended, RUQ TTP; no hepatosplenomegaly; bowel sounds are present in all four quadrants. EXTREMITIES: No clubbing, cyanosis, or edema. SKIN: Normal; no rash; no jaundice. CURRICULUM COUNSELOR: alert (Meri Melendez) Assessment and Plan Plan ASSESSMENT - dysphagia, poor PO intake - apparently responded to esophageal dilatation in past - bipolar disorder with depressive sx PLAN - EGD sunday - obtain consent - NPO after midnight sunday - further recs to follow This pt seen by myself and Dr Rebolledo and this note is written on his behalf ( Mrei Melendez) Plan Patient was seen and examined, agree with the above note, EGD with possible dilation on Sunday discussed with her daughter and she is agreeable to having. ( Virginia Rebolledo MD) Meri Melendez Feb 17, 2017 16:29 Virginia Rebolledo MD Feb 17, 2017 17:11
--- NOTE | 2017-02-17 17:26 | EKG ---
Date Performed: 02/17/2017 Time Performed: 11:09:36 PTAGE: 71 years EKG: SINUS TACHYCARDIA NONSPECIFIC ST & T-WAVE ABNORMALITY ABNORMAL RHYTHM ECG Compared to prior tracing no significant change PREVIOUS TRACING : 02/16/2017 18.27 DOCTOR: George Bocanegra Interpretating Date/Time 02/17/2017 17:21:27
--- NOTE | 2017-02-17 17:28 | EKG ---
Date Performed: 02/16/2017 Time Performed: 18:27:39 PTAGE: 71 years EKG: Sinus rhythm ST junctional depression is nonspecific Compared to prior tracing no significant change NORMAL ECG PREVIOUS TRACING : 02/09/2008 11.06 DOCTOR: George Bocanegra Interpretating Date/Time 02/17/2017 17:26:25
[2017-02-17] MEDS ORDERED: MIRTAZAPINE 15 MG TAB PO SCH (21:00)
[2017-02-17] MEDS: lamoTRIgine 100 MG TAB PO SCH (22:25)
[2017-02-18] MEDS: ACETAMINOPHEN 325 MG TAB PO PRN ×2 (03:20→08:34)
[2017-02-18 05:17] VITALS: BP 140/59; PULSE 106; RESP 16; TEMP 96.9; O2SAT 95
[2017-02-18] MEDS: LEVOTHYROXINE SODIUM 50 MCG TAB PO SCH (06:20)
[2017-02-18] MEDS: PRAVASTATIN SOD 40 MG TAB PO SCH (08:33)
--- NOTE | 2017-02-18 09:47 | HHI.GIFU ---
Subjective Remarks No new complaints (Charis Garcia) Objective Vitals I&O Vital Signs Date Time Temp Pulse Resp B/P Pulse Ox O2 Delivery O2 Flow Rate FiO2 02/18/17 05:17 96.9 106 16 140/59 95 I/O 02/17/17 02/17/17 02/17/17 02/18/17 02/18/17 02/18/17 07:00 15:00 23:00 07:00 15:00 23:00 Intake Total 0 ml 240 ml 960 ml 960 ml Balance 0 ml 240 ml 960 ml 960 ml Intake Oral 0 ml 240 ml 960 ml 960 ml # Voids 1 1 3 # Bowel Movements 0 Physical Exam HEENT: PERRLA; normocephalic; atraumatic; no jaundice. CHEST: CTA CARDIAC: RRR ABDOMEN: Soft, nondistended, RUQ TTP; no hepatosplenomegaly; bowel sounds are present x 4 EXTREMITIES: No clubbing, cyanosis, or edema. SKIN: Normal; no rash; no jaundice. INDUSTRIAL MACHINERY MECHANIC: Alert (Charis Garcia) Assessment and Plan Plan ASSESSMENT Dysphagia, poor PO intake, has responded to esophageal dilatation in past Bipolar disorder with depressive sx, per attending PLAN - EGD Sunday with possible dilation - NPO after midnight tonight - Further recommendations to follow based on results of above Patient seen and examined by Dr. Palumbo and myself and this note is written on his behalf (Charis Garcia) Physician Comments Patient seen and examined Agree with above Continue with current supportive care Monitor labs Plan for an EGD with possible dilation tomorrow (Zacarias Palumbo MD) Charis Garcia Feb 18, 2017 09:47 Zacarias Palumbo MD Feb 18, 2017 15:59
--- NOTE | 2017-02-18 12:03 | HHI.PR ---
Subjective Remarks Follow up for hypothyroid and decreased food/fluid intake. Pt reported feeling better, ate "all of my oat meal this morning and some scrambled eggs." Said she is to undergo EGD in the morning, anxious and expectant it will help her. Pt stated she has been in beed but would like to get out and walk. No other issues raised by pt. Pt denied fever, cough, shortness of breath, NVD, chest/abdominal pain. She stated she is urinating but has not had a bowel movement. Per nursing (Rebeca) no new issues developed overnight or since start of shift. Objective Vitals Vital Signs Date Time Temp Pulse Resp B/P Pulse Ox O2 Delivery O2 Flow Rate FiO2 02/18/17 05:17 96.9 106 16 140/59 95 I/O 02/17/17 02/17/17 02/17/17 02/18/17 02/18/17 02/18/17 07:00 15:00 23:00 07:00 15:00 23:00 Intake Total 0 ml 240 ml 960 ml 960 ml Balance 0 ml 240 ml 960 ml 960 ml Intake Oral 0 ml 240 ml 960 ml 960 ml # Voids 1 1 3 # Bowel Movements 0 Result Diagram: 02/16/17 1007 02/16/17 1007 Objective Remarks GENERAL: Pt encountered propped up in bed, drinking coffee with cups marked water, apple juice and ensure in front of her on table. Pt noted to be thin. SKIN: Warm and dry. HEAD: Normocephalic. EYES: No scleral icterus. No injection or drainage. NECK: Supple, trachea midline. No lymphadenopathy. CARDIOVASCULAR: Regular rate and rhythm without murmurs, gallops, or rubs. RESPIRATORY: Breath sounds equal bilaterally. No accessory muscle use. GASTROINTESTINAL: Abdomen soft, non-tender, nondistended. MUSCULOSKELETAL: No cyanosis, or edema. PSYCHIATRIC: Alert and oriented x 3, no overt signs of anxiety/depression. Pleasant and cooperative. Procedures EGD with esophageal dilation planned for Sunday (02/19/17). Medications and IVs Current Medications Medications (Trade) Dose Ordered Sig/Dasia Route Start Time Stop Time Status Last Admin (Tylenol) 650 mg Q4H PRN PO 02/15/17 18:15 02/18/17 08:34 (Milk Of Magnesia Liq) 30 ml DAILY PRN PO 02/15/17 18:15 (Mag-Al Plus Susp Liq) 30 ml Q6H PRN PO 02/15/17 18:15 (LaMICtal) 150 mg HS PO 02/16/17 21:00 02/17/17 22:25 (Pravachol) 40 mg DAILY PO 02/17/17 09:00 02/18/17 08:33 (Synthroid) 50 mcg DAILY@0600 PO 02/17/17 06:00 02/18/17 06:20 (Remeron) 7.5 mg HS PO 02/17/17 21:00 02/17/17 22:25 (Pill Splitter) 1 ea UNSCH PRN OTHER 02/17/17 11:15 Urinary Catheter: No A/P Assessment and Plan Ms. Martins denied having any medical history. However, per the medical record she is reported to have history of bipolar disease, cardiovascular disease, congestive heart failure, and hypothyroidism. Ms. Martins did not provide much information about herself, with many answers being "I don't know." As such, history is obtained from the medical record. Ms. Martins was brought to [facility] [place] by family on 02/14/17 for worsening depression. It is reported she has had decreased food and fluid intake for several weeks. Medical record cites pt's daughter as this being "the worst depression." Pt is reported to take food into her mouth but not swallow. Dr. Cruz has consulted the Hospitalist team to provide medical management. Major Depressive Episode -Treatment per psychiatry Anorexia Dysphagia -GI consulted, EGD with esophageal dilation planned for 02/19 -Speech language pathologist reported reviewed, negative findings. -Sample Distributor consulted for calorie count. Hypothyroidism - Home regimen Levothyroxine 0.88 mcg/day -TSH level 0.222, decreased levothyroxine to 50 mcg po daily -Continue current regimen. Hyperlipidemia -Continue home regimen of Pravachol 40 mg PO daily. Case discussed with pt, nursing staff, and Dr. Dos Santos. Discharge Planning Discharge planning ongoing. Hari Nogueira Jr. Feb 18, 2017 12:03
--- NOTE | 2017-02-18 16:21 | HHI.PR ---
Subjective Remarks The patient is in the chair she appears in not acute distress. Family at bedside. Patient says she was able to eat breakfast and some lunch. Still has problem with swallowing, plan for EGD tomorrow. Denies any fever or chills, no cough. No nausea, vomiting, diarrhea or constipation. Objective Vitals Vital Signs Date Time Temp Pulse Resp B/P Pulse Ox O2 Delivery O2 Flow Rate FiO2 02/18/17 05:17 96.9 106 16 140/59 95 I/O 02/17/17 02/17/17 02/17/17 02/18/17 02/18/17 02/18/17 07:00 15:00 23:00 07:00 15:00 23:00 Intake Total 0 ml 240 ml 960 ml 1320 ml Balance 0 ml 240 ml 960 ml 1320 ml Intake Oral 0 ml 240 ml 960 ml 1320 ml # Voids 1 1 3 # Bowel Movements 0 Result Diagram: 02/16/17 1007 02/16/17 1007 Objective Remarks GENERAL: Very pleasant 71-year-old female, very skinny, in the chair appears in not acute distress. CARDIOVASCULAR: Regular rate and rhythm without murmurs, gallops, or rubs. RESPIRATORY: Breath sounds equal bilaterally. No accessory muscle use. GASTROINTESTINAL: Abdomen soft, non-tender, nondistended. MUSCULOSKELETAL: No cyanosis, or edema. PSYCHIATRIC: Alert and oriented x 3, no overt signs of anxiety/depression. Pleasant and cooperative. Procedures EGD with esophageal dilation planned for Sunday (02/19/17). A/P Assessment and Plan Ms. Martins denied having any medical history. However, per the medical record she is reported to have history of bipolar disease, cardiovascular disease, congestive heart failure, and hypothyroidism. Ms. Martins did not provide much information about herself, with many answers being "I don't know." As such, history is obtained from the medical record. Ms. Martins was [place] [facility] [place]17 for worsening depression. It is reported she has had decreased food and fluid intake for several weeks. Medical record cites pt's daughter as this being "the worst depression." Pt is reported to take food into her mouth but not swallow. Dr. Cruz has consulted the Hospitalist team to provide medical management. Major Depressive Episode -Treatment per psychiatry Anorexia Dysphagia Severe protein calorie malnutrition. 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 GI consulted, EGD with esophageal dilation planned for 02/19 Speech language pathologist reported reviewed, negative findings. Moulder Operator consulted for calorie count. Hypothyroidism Home regimen Levothyroxine 0.88 mcg/day TSH level 0.222, decreased levothyroxine to 50 mcg po daily Continue current regimen. Hyperlipidemia -Continue home regimen of Pravachol 40 mg PO daily. Case discussed with the patient, nurse, family at bedside Discharge Planning Discharge planning pending improvement. Plan for EGD with dilation 02/19 Myah Dos Santos MD Feb 18, 2017 16:21
--- NOTE | 2017-02-18 16:30 | HHI.PYPN ---
Subjective Remarks Patient seen today for psychiatric reevaluation alone with nurse in charge Herlinda, patient reports feeling a little better today, "but still depressed "she quantifies her mood 10/16. She says that she continues to be sad, with frequent thoughts of "bas things". Patient reports difficulty sleeping at night , decreased appetite, "even though I am eating more", she is oriented 3, compliant with her psychotropics, no significant side effects. Review of Systems Other No prominent somatic complaints Objective Alert: Yes [place]: Person, Place, Date (partial) Mood: Depressed (severely depressed mood) Affect: Flat Memory Intact: Comment (Not formally tetsed) Hallucinations: Other (denies) Delusions: No Delusion Type: Other (denies) Suicidal: Ideation (deneis ) Homicidal: Ideation (deneis) Insight/Judgment Poor Vitals/IOs Vital Signs Date Time Temp Pulse Resp B/P Pulse Ox O2 Delivery O2 Flow Rate FiO2 02/18/17 05:17 96.9 106 16 140/59 95 02/15/17 19:08 Room Air Intake and Output 02/17/17 02/17/17 02/18/17 08:00 16:00 00:00 Intake Total 0 ml 720 ml 480 ml Balance 0 ml 720 ml 480 ml Assessment & Plan Problem List: (1) Bipolar disorder, curr episode depressed, severe, w/psychotic features Assessment & Plan: Will increase Remeron to 15 mg to help with depression and appetite. ICD Code: F31.5 Assessment & Plan Estimated LOS: days Justification for Cont. Inpt. Patient has an elevated risk to decompensate at the lower level of care. Jamir Ramirez MD Feb 18, 2017 16:30
[2017-02-18 18:00] VITALS: PULSE 119; RESP 16; TEMP 97.4; O2SAT 97
[2017-02-18] MEDS: MIRTAZAPINE 15 MG TAB PO SCH (21:00)
[2017-02-18] MEDS: lamoTRIgine 100 MG TAB PO SCH (21:01)
[2017-02-19 04:52] VITALS: BP 142/56; PULSE 95; RESP 14; TEMP 97.2; O2SAT 98
[2017-02-19] MEDS: LEVOTHYROXINE SODIUM 50 MCG TAB PO SCH (05:56)
[2017-02-19] MEDS: PRAVASTATIN SOD 40 MG TAB PO SCH (10:03)
[2017-02-19] MEDS: ERGOCALCIFEROL (VIT D2) 50,000 UNIT CAP PO SCH ×2 (12:55→16:31)
[2017-02-19] MEDS: MEGESTROL ACETATE SUSP 400 MG/10 ML CUP PO SCH ×2 (14:30→16:31)
--- NOTE | 2017-02-19 14:31 | HHI.PR ---
Subjective Remarks c/o pain in the lower abdomen denies cp/sob Overnight events discussed with RN. Patient is a febrile, however is slightly tachycardic. still c/o dysphagia Objective Vitals Vital Signs Date Time Temp Pulse Resp B/P Pulse Ox O2 Delivery O2 Flow Rate FiO2 02/19/17 04:52 97.2 95 14 142/56 98 02/18/17 18:00 97.4 119 16 97 I/O 02/18/17 02/18/17 02/18/17 02/19/17 02/19/17 02/19/17 07:00 15:00 23:00 07:00 15:00 23:00 Intake Total 1320 ml 1320 ml 240 ml 0 ml Balance 1320 ml 1320 ml 240 ml 0 ml Intake Oral 1320 ml 1320 ml 240 ml 0 ml # Voids 3 1 0 Result Diagram: 02/16/17 1007 02/16/17 1007 Objective Remarks GENERAL: Very pleasant 71-year-old female, very skinny, in the chair appears in not acute distress. CARDIOVASCULAR: Regular rate and rhythm without murmurs, gallops, or rubs. RESPIRATORY: Breath sounds equal bilaterally. No accessory muscle use. GASTROINTESTINAL: Abdomen soft,mildly tender to palpation of hypogastrium. MUSCULOSKELETAL: No cyanosis, or edema. PSYCHIATRIC: Alert and oriented x 3, no overt signs of anxiety/depression. Pleasant and cooperative. Procedures EGD with esophageal dilation planned for Sunday (02/19/17). Medications and IVs Current Medications Medications (Trade) Dose Ordered Sig/Dasia Route Start Time Stop Time Status Last Admin (Tylenol) 650 mg Q4H PRN PO 02/15/17 18:15 02/18/17 08:34 (Milk Of Magnesia Liq) 30 ml DAILY PRN PO 02/15/17 18:15 (Mag-Al Plus Susp Liq) 30 ml Q6H PRN PO 02/15/17 18:15 (LaMICtal) 150 mg HS PO 02/16/17 21:00 02/18/17 21:01 (Pravachol) 40 mg DAILY PO 02/17/17 09:00 02/19/17 10:03 (Synthroid) 50 mcg DAILY@0600 PO 02/17/17 06:00 02/19/17 05:56 (Pill Splitter) 1 ea UNSCH PRN OTHER 02/17/17 11:15 (Remeron) 15 mg HS PO 02/18/17 21:00 02/18/17 21:00 (Drisdol) 50,000 units Q7D PO 02/19/17 13:00 Urinary Catheter: No Vascular Central Line Catheter: No A/P Assessment and Plan Ms. Martins denied having any medical history. However, per the medical record she is reported to have history of bipolar disease, cardiovascular disease, congestive heart failure, and hypothyroidism. Ms. Martins did not provide much information about herself, with many answers being "I don't know." As such, history is obtained from the medical record. Ms. Martins was brought to [facility] family on 02/14/17 for worsening depression. It is reported she has had decreased food and fluid intake for several weeks. Medical record cites pt's daughter as this being "the worst depression." Pt is reported to take food into her mouth but not swallow. Dr. Cruz has consulted the Hospitalist team to provide medical management. Major Depressive Episode -Treatment per psychiatry Anorexia Dysphagia Severe protein calorie malnutrition. 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 GI consulted, EGD with esophageal dilation planned for 02/19 Speech language pathologist reported reviewed, negative findings. 02/19 Graduate Student consulted for calorie count. Recommended Ensure Enlive tid to offer 350 kcal and 20g Protein per serving. and appetite stimulant. Will start the patient on Megace. For EGD w Dilation today. Hypothyroidism Home regimen Levothyroxine 0.88 mcg/day TSH level 0.222, decreased levothyroxine to 50 mcg po daily Continue current regimen. Hyperlipidemia -Continue home regimen of Pravachol 40 mg PO daily. Case discussed with the patient, nurse, family at bedside Collins Ortega MD Feb 19, 2017 14:31
--- NOTE | 2017-02-19 14:41 | HHI.PYPN ---
Subjective Remarks Patient seen for follow up, chart reviewed. As discussed with nursing staff patient noted to be pleasant and continue to start eating yesterday. Patient is scheduled for EGD this morning. Patient found on hospital bed noted to be more reactive and brighter this morning with global technical writer. Patient reports having several yes night, although yesterday she reported feeling a little low" feeling "much better". Patient stated that she had been eating more now, appetite been a little better, patient reports having suicidal ideation yesterday and feeling anxious about EGD this morning. Patient states that she had been visited by family which she fell happy about and feels more motivated today. Patient continues report some difficulty with swallowing. Patient at this time denies SI, HI, AVH or delusions. Review of Systems Except as stated in HPI: all other systems reviewed are Neg Objective Alert: Yes [place]: Person, Place, Date (partial) Mood: Other ("feel better") Affect: Appropriate Memory Intact: Comment (Not formally tested) Hallucinations: Other (denies) Delusions: No Delusion Type: Other (denies) Suicidal: Ideation (denies ) Homicidal: Ideation (denies) Insight/Judgment Limited insight, fair impulse control, limited judgment Remarks Patient appears stated age, found hospital gown, cooperative in interview. Fair eye contact. Speech normal rate tone and prosody. Thought processes are linear, thought content denies SI, HI, AVH or delusions. Vitals/IOs Vital Signs Date Time Temp Pulse Resp B/P Pulse Ox O2 Delivery O2 Flow Rate FiO2 02/19/17 04:52 97.2 95 14 142/56 98 02/15/17 19:08 Room Air Intake and Output 02/18/17 02/18/17 02/18/17 07:59 15:59 23:59 Intake Total 960 ml 360 ml 1560 ml Balance 960 ml 360 ml 1560 ml Assessment & Plan Problem List: (1) Bipolar disorder, curr episode depressed, severe, w/psychotic features ICD Code: F31.5 Assessment & Plan Patient today noted to be less depressed, denies any suicide ideation at this time and mood seems be seems to be improving. Patient now eating more with encouragement, per the be more reactive during interview, and reported feeling more hopeful today. Patient stated for EGD this morning for a possible dilatation found to improve her difficulty with swallowing. Patient to continue to be encouraged to continue oral intake and hydration by mouth. Continue current treatment with upper titration as needed. Continue to monitor medication responsive possible adverse drug reactions. Supportive psychotherapy provided. Discharge planning in progress. Justification for Cont. Inpt. Patient at risk for decompensation if at lower level of care Discharge Planning In progress Mitch Cruz MD Feb 19, 2017 14:41
[2017-02-19] MEDS ORDERED: PROPOFOL 200 MG/20 ML AMP IV ONE (15:29)
--- NOTE | 2017-02-19 16:35 | PD.PROCEDR ---
GI Procedure REFERRING PHYSICIAN Dr. Cruz PROCEDURE PERFORMED EGD with biopsy and esophageal dilation INDICATION FOR PROCEDURE Dysphagia PROCEDURE: The procedure, risks and benefits were discussed with Ms. Martins and informed consent was obtained. Anesthesia sedated her with Diprivan. She was placed in the left lateral decubitus position. EGD: The Pentax videoscope was introduced through the oropharynx and advanced to the second portion of the duodenum under direct visualization. Retroflexion was performed in the stomach. FINDINGS: The esophagus this appeared to be unremarkable and within normal limits I did dilate with a savory dilator over guidewire size 16 mm postdilatation view was unremarkable and random biopsies were taken for further evaluation The stomach this appeared to be unremarkable and within normal limits The duodenum this was normal ESTIMATED BLOOD LOSS: None SPECIMENS REMOVED: Esophageal biopsy COMPLICATIONS: None IMPRESSION: Normal EGD PLAN: Await biopsy Recommend a barium swallow Advance diet Zacarias Palumbo MD Feb 19, 2017 16:35
[2017-02-19 18:30] VITALS: BP 116/63; PULSE 92; RESP 16; TEMP 97.3; O2SAT 95
[2017-02-19] MEDS: lamoTRIgine 100 MG TAB PO SCH (20:02)
[2017-02-19] MEDS: MIRTAZAPINE 15 MG TAB PO SCH (20:02)
[2017-02-20 05:19] VITALS: BP 126/54; PULSE 86; RESP 16; TEMP 96.9; O2SAT 99
[2017-02-20] MEDS: LEVOTHYROXINE SODIUM 50 MCG TAB PO SCH (06:15)
[2017-02-20] MEDS: PRAVASTATIN SOD 40 MG TAB PO SCH (09:31)
[2017-02-20] MEDS: MEGESTROL ACETATE SUSP 400 MG/10 ML CUP PO SCH (09:36)
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
[2017-02-20] MEDS ORDERED: BISACODYL 10 MG SUPP RECTAL PRN (13:15)
--- NOTE | 2017-02-20 13:15 | HHI.GIFU ---
Subjective Remarks Resting in bed in no distress. She had already had her lunch when I saw her. The patient states that she has not been able to swallow anything, but the nurse states she is eating without any difficulty. She is not having any odynophagia, nausea, vomiting. Her abdomen is very mildly distended, states she has not had a bowel movement, but was recently given MOM- no bm as of yet. Afebrile. No abdominal pain. (Elizabeth Mills) Objective Vitals I&O Vital Signs Date Time Temp Pulse Resp B/P Pulse Ox O2 Delivery O2 Flow Rate FiO2 02/20/17 05:19 96.9 86 16 126/54 99 02/19/17 18:30 97.3 92 16 116/63 95 02/19/17 15:45 98.6 90 18 126/67 97 I/O 02/19/17 02/19/17 02/19/17 02/20/17 02/20/17 02/20/17 06:59 14:59 22:59 06:59 14:59 22:59 Intake Total 240 ml 0 ml 360 ml 121 ml Balance 240 ml 0 ml 360 ml 121 ml Intake Oral 240 ml 0 ml 360 ml 121 ml # Voids 1 0 1 Imaging Last Impressions Barium Swallow X-Ray 02/20/17 0000 Signed Impressions: Service Date/Time: Monday, February 20, 2017 11:12 - CONCLUSION: Small amounts of extraluminal contrast seen around the distal esophagus and medial stomach. Imtiaz Rivero MD Physical Exam HEENT: Normocephalic; atraumatic; no jaundice. CHEST: CTA CARDIAC: RRR ABDOMEN: Soft, mildly distended, nontender; no hepatosplenomegaly; bowel sounds are present EXTREMITIES: No clubbing, cyanosis, or edema. SKIN: Normal; no rash; no jaundice. TUNNEL INSPECTOR: Alert (Elizabeth Mills) Assessment and Plan Plan ASSESSMENT - Dysphagia, poor PO intake, has responded to esophageal dilatation in past. S/ P EGD with dilatation and random biopsies (02/19/17)----> Normal EGD, S/P random biopsies. There was no obvious etiology for her symptoms on EGD and therefore Barium Swallow was ordered. Barium Swallow X-Ray (02/20/17)----> Small amounts of extraluminal contrast seen around the distal esophagus and medial stomach. I came to see patient, but she had already had her lunch. She reports that she is not able to swallow, but the nurses report that she has been tolerating her diet. Clinically, she is not in any distress- afebrile, no n/v/pain/odynophagia. Her abdomen is soft, but very mildly distended and she reports that she has not had a bowel movement in several days and took MOM earlier today. Will make NPO. Insert NGT to LIWS. IVF. Stat CBC. CBC/BMP in am. - Constipation. Took MOM. No results. Can have dulcolax suppository. - Bipolar disorder with depressive sx, per attending PLAN - Strict NPO - Insert NGT - NGT to LIWS - Start IVF - Stat CBC- d/w nurse to make sure this gets drawn soon - CBC, BMP in am - Supportive care - Will monitor over the next few days and then re-evaluate - Pt currently afebrile. If she has leukocytosis on CBC, then we will start abx - Further recommendations to follow based on results of above - Patient seen and examined by Dr. Palumbo and myself and this note is written on his behalf (Elizabeth Mills) Physician Comments Patient seen and examined Agree with above Continue current supportive care Monitor labs Patient laying in bed comfortably denies any pain no fever or chills labs are stable and unremarkable Barium swallow reveals a small leak just beyond the GE junction Patient to be nothing by mouth at this point we will monitor clinically and most likely repeat the barium swallow in one to 2 days for further evaluation ( Zacarias Palumbo MD) Elizabeth Mills Feb 20, 2017 13:15 Zacarias Palumbo MD Feb 20, 2017 19:40
[2017-02-20] MEDS: SODIUM CHLOR 0.9% 1000 ML INJ 1,000 ML IV SCH (14:26)
[2017-02-20 14:33] LABS: AUTOMATED NEUTROPHIL # 5.2 TH/MM3 (1.8-7.7); BASOPHIL % 0.5 % (0.0-2.0); EOSINOPHIL # 0.1 TH/MM3 (0-0.4); EOSINOPHIL % 1.3 % (0.0-4.0); HEMATOCRIT 43.6 % (35.0-46.0); HEMO FLAGS DIFF FINAL; LYMPH % 23.3 % (9.0-44.0); LYMPHOCYTE # 1.8 TH/MM3 (1.0-4.8); MEAN CORPUSCULAR HEMOGLOBIN 28.5 PG (27.0-34.0); MEAN CORPUSCULAR HGB CONC 32.4 % (32.0-36.0); MONO % 8.7 % (0.0-8.0); NEUT % 66.2 % (16.0-70.0); PLATELET COUNT 228 TH/MM3 (150-450); RED BLOOD COUNT 4.96 MIL/MM3 (4.00-5.30); RED CELL DISTRIBUTION WIDTH 13.8 % (11.6-17.2); WHITE BLOOD COUNT 7.9 TH/MM3 (4.0-11.0)
[2017-02-20] MEDS ORDERED: PIPERACIL-TAZO 4.5 GM PREMIX 100 ML IV SCH (15:30)
--- NOTE | 2017-02-20 15:41 | HHI.PR ---
Subjective Remarks patient states still has dysphagia denies fevers/chills sp barium swallow Objective Vitals Vital Signs Date Time Temp Pulse Resp B/P Pulse Ox O2 Delivery O2 Flow Rate FiO2 02/20/17 05:19 96.9 86 16 126/54 99 02/19/17 18:30 97.3 92 16 116/63 95 02/19/17 15:45 98.6 90 18 126/67 97 I/O 02/19/17 02/19/17 02/19/17 02/20/17 02/20/17 02/20/17 07:00 15:00 23:00 07:00 15:00 23:00 Intake Total 240 ml 0 ml 360 ml 121 ml 960 ml Balance 240 ml 0 ml 360 ml 121 ml 960 ml Intake Oral 240 ml 0 ml 360 ml 121 ml 960 ml # Voids 1 0 1 1 Result Diagram: 02/20/17 1345 02/16/17 1007 Imaging Last Impressions Barium Swallow X-Ray 02/20/17 0000 Signed Impressions: Service Date/Time: Monday, February 20, 2017 11:12 - CONCLUSION: Small amounts of extraluminal contrast seen around the distal esophagus and medial stomach. Imtiaz Rivero MD Objective Remarks GENERAL: Very pleasant 71-year-old female, very skinny, in the chair appears in not acute distress. CARDIOVASCULAR: Regular rate and rhythm without murmurs, gallops, or rubs. RESPIRATORY: Breath sounds equal bilaterally. No accessory muscle use. GASTROINTESTINAL: Abdomen soft,mildly tender to palpation of hypogastrium. MUSCULOSKELETAL: No cyanosis, or edema. PSYCHIATRIC: Alert and oriented x 3, no overt signs of anxiety/depression. Pleasant and cooperative. Procedures EGD with esophageal dilation planned for Sunday (02/19/17). Medications and IVs Current Medications Medications (Trade) Dose Ordered Sig/Dasia Route Start Time Stop Time Status Last Admin (Tylenol) 650 mg Q4H PRN PO 02/15/17 18:15 02/18/17 08:34 (Milk Of Magnesia Liq) 30 ml DAILY PRN PO 02/15/17 18:15 Hold 02/19/17 19:54 (Mag-Al Plus Susp Liq) 30 ml Q6H PRN PO 02/15/17 18:15 (LaMICtal) 150 mg HS PO 02/16/17 21:00 02/19/17 20:02 (Pravachol) 40 mg DAILY PO 02/17/17 09:00 02/20/17 09:31 (Synthroid) 50 mcg DAILY@0600 PO 02/17/17 06:00 02/20/17 06:15 (Pill Splitter) 1 ea UNSCH PRN OTHER 02/17/17 11:15 (Remeron) 15 mg HS PO 02/18/17 21:00 02/19/17 20:02 (Drisdol) 50,000 units Q7D PO 02/19/17 13:00 02/19/17 16:31 Megestrol Acetate 400 mg 400 mg DAILY PO 02/19/17 14:30 02/20/17 09:36 (NS 1000 ml Inj) 1,000 ml @ 80 mls/hr [id number] IV 02/20/17 13:00 02/20/17 14:26 (Dulcolax Supp) 10 mg DAILY PRN RECTAL 02/20/17 13:15 Urinary Catheter: No Vascular Central Line Catheter: No A/P Problem List: (1) Weight loss ICD Code: R63.4 Status: Acute (2) Bipolar disorder, curr episode depressed, severe, w/psychotic features ICD Code: F31.5 Status: Acute (3) Dysphagia ICD Code: R13.10 Status: Acute (4) Hypothyroidism ICD Code: 244.9 Status: Chronic (5) Esophageal perforation ICD Code: K22.3 Status: Acute Assessment and Plan Ms. Martins denied having any medical history. However, per the medical record she is reported to have history of bipolar disease, cardiovascular disease, congestive heart failure, and hypothyroidism. Ms. Martins did not provide much information about herself, with many answers being "I don't know." As such, history is obtained from the medical record. Ms. Martins was brought to [facility] by family on 02/14/17 for worsening depression. It is reported she has had decreased food and fluid intake for several weeks. Medical record cites pt's daughter as this being "the worst depression." Pt is reported to take food into her mouth but not swallow. Dr. Cruz has consulted the Hospitalist team to provide medical management. Major Depressive Episode -Treatment per psychiatry Anorexia Dysphagia Severe protein calorie malnutrition. 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 GI consulted, EGD with esophageal dilation planned for 02/19 Speech language pathologist reported reviewed, negative findings. 02/19 Director Food Safety consulted for calorie count. Recommended Ensure Enlive tid to offer 350 kcal and 20g Protein per serving. and appetite stimulant. Will start the patient on Megace. For EGD w Dilation today. 02/20 sp EGD and dilation on 02/20. Patient is sp Barium swallow which which shows extraluminal contrast around distal esophagus. Will start on IV zosyn empirically and consult cardiothoracic surgery. Keep NPO, ng tube to suction. Case discussed with Dr Palumbo. More than 24 hrs after procedure and patient looks stable at this time. Hypothyroidism Home regimen Levothyroxine 0.88 mcg/day TSH level 0.222, decreased levothyroxine to 50 mcg po daily Continue current regimen. 02/20 switch to IV Hyperlipidemia -Hold patient npo. Case discussed with the patient, nurse, family at bedside Collins Ortega MD Feb 20, 2017 15:41
--- NOTE | 2017-02-20 16:41 | HHI.PYPN ---
Subjective Remarks Patient seen for follow-up, chart review. Patient found sitting in hospital chair waiting to have barium swallow study done this morning. Patient stated that after the procedure yesterday she was feeling "the same" and also reported feeling "a lot depressed"along with a thoughts of not wanting to be alive.. Patient states that she was visited by family yesterday which she enjoyed. Patient is that she has been attempting to eat more more but is having about 1 meal per day. Patient was encouraged to continue oral intake to improve her nutrition which she agreed. Patient seen later this afternoon fine hospital bed tearful and upset that she will need an NG tube placed. As per barium swallow report it was noted patient having had small extraluminal contrast seen around distal esophagus and medial stomach. Review of Systems Except as stated in HPI: all other systems reviewed are Neg Objective Alert: Yes [place]: Person, Place, Date (partial) Mood: Depressed Affect: Tearful Memory Intact: Comment (Not formally tested) Hallucinations: Other (denies) Delusions: No Delusion Type: Other (denies) Suicidal: Ideation (denies ) Homicidal: Ideation (denies) Insight/Judgment Fair insight, impulse control and judgment Labs Test 02/20/17 13:45 White Blood Count 7.9 TH/MM3 Red Blood Count 4.96 MIL/MM3 Hemoglobin 14.1 GM/DL Hematocrit 43.6 % Mean Corpuscular Volume 88.0 FL Mean Corpuscular Hemoglobin 28.5 PG Mean Corpuscular Hemoglobin 32.4 % Concent Red Cell Distribution Width 13.8 % Platelet Count 228 TH/MM3 Mean Platelet Volume 10.4 FL Neutrophils (%) (Auto) 66.2 % Lymphocytes (%) (Auto) 23.3 % Monocytes (%) (Auto) 8.7 % Eosinophils (%) (Auto) 1.3 % Basophils (%) (Auto) 0.5 % Neutrophils # (Auto) 5.2 TH/MM3 Lymphocytes # (Auto) 1.8 TH/MM3 Monocytes # (Auto) 0.7 TH/MM3 Eosinophils # (Auto) 0.1 TH/MM3 Basophils # (Auto) 0.0 TH/MM3 CBC Comment DIFF FINAL Differential Comment Vitals/IOs Vital Signs Date Time Temp Pulse Resp B/P Pulse Ox O2 Delivery O2 Flow Rate FiO2 02/20/17 05:19 96.9 86 16 126/54 99 Intake and Output 02/19/17 02/19/17 02/20/17 08:00 16:00 00:00 Intake Total 0 ml 0 ml 481 ml Balance 0 ml 0 ml 481 ml Assessment & Plan Problem List: (1) Bipolar disorder, curr episode depressed, severe, w/psychotic features ICD Code: F31.5 Assessment & Plan Patient this time continues to be noted to feel depressed with be tearful due to having NG tube placement this evening. Patient continues to have vague thoughts of not wanting to be alive. Patient continues to have family support. Patient to continue current treatment for now with upper titration as needed. Monitor her medication response in a restaurant reactions. Patient to continue recommendations as per primary medical team. Discharge planning in progress Justification for Cont. Inpt. Patient at risk for decompensation if it lower level of care Discharge Planning In progress Mitch Cruz MD Feb 20, 2017 16:41
[2017-02-20] MEDS ORDERED: CIPROFLOXACIN 400 MG PREMIX 200 ML IV SCH (17:00)
[2017-02-20] MEDS: PANTOPRAZOLE SODIUM 40 MG VIAL IV PUSH SCH (17:00)
[2017-02-20] MEDS ORDERED: metroNIDAZOLE 500 MG INJ 100 ML IV SCH (18:00)
[2017-02-20 18:02] VITALS: BP 113/53; PULSE 81; RESP 16; TEMP 97.8; O2SAT 99
[2017-02-20] MEDS: lamoTRIgine 100 MG TAB PO SCH (21:56)
[2017-02-20] MEDS: MIRTAZAPINE 15 MG TAB PO SCH (21:56)
[2017-02-20] MEDS: CIPROFLOXACIN 400 MG PREMIX 200 ML IV SCH (22:07)
[2017-02-20] MEDS: metroNIDAZOLE 500 MG INJ 100 ML IV SCH (22:07)
[2017-02-21] MEDS: SODIUM CHLOR 0.9% 1000 ML INJ 1,000 ML IV SCH ×2 (03:46→14:00)
[2017-02-21 05:46] VITALS: BP 118/50; PULSE 83; RESP 16; TEMP 97.9; O2SAT 98
[2017-02-21] MEDS: LEVOTHYROXINE SODIUM 100 MCG VIAL IV PUSH SCH (06:29)
[2017-02-21] MEDS: metroNIDAZOLE 500 MG INJ 100 ML IV SCH ×3 (06:29→20:58)
--- NOTE | 2017-02-21 08:25 | MB ---
cc: CIARRA FERRERA DATE OF : 1945 DATE OF CONSULTATION: 02/18/2017 HISTORY OF PRESENT ILLNESS: The patient is a 71-year-old patient admitted via the emergency department with history of bipolar disorder, multiple psych hospitalizations, presented to the emergency department on a voluntary basis with complaints of worsening depression, decreased appetite, poor intake, associated with weight loss, low energy, no motivation, wanted to sleep all day, generalized weakness, difficulty walking. Apparently her boyfriend of 30 years was just diagnosed with lung cancer. She has a psychiatrist, Dr. Hoffman. She has had some recent med changes including the discontinuation of lithium and Abilify. She was admitted to the inpatient psychiatric unit where she had been complaining of dysphagia and the patient underwent EGD with biopsy, esophageal dilatation yesterday. The findings showed the esophagus appeared to be unremarkable and within normal limits. They did, however, dilate with a dilator over a guide wire size 16 millimeter, post dilation view was unremarkable, and random biopsies were taken for further evaluation. No complications were documented. No blood loss. Recommendations were for a barium swallow which she underwent this morning. She did, however, after having her EGD last evening was able to have some parts and pieces of a hamburger and this morning had some pudding which had a little trouble with her swallowing. She underwent the barium swallow. There were small amounts of extraluminal contrast seen around the distal esophagus and medial stomach. They immediately made the patient n.p.o. We were consulted for possible esophageal rupture. Upon arrival to the floor they were getting ready to place an NG tube which Dr. Palumbo walked in at the same time and decided to hold on the placement of the NG tube. The patient appeared very stable and was still, however, n.p.o. and on IV fluids only. Recommendations were to give her ice chips only with medications and repeat the barium swallow in 48 hours or so. PAST MEDICAL HISTORY: 1. Bipolar disorder. 2. Depression. 3. Anxiety. 4. Hyperlipidemia. 5. History of congestive heart failure. 6. Coronary artery disease. 7. Hypothyroidism. PAST SURGICAL HISTORY: 1. Coronary artery bypass grafting 2. Cervical fusion, right nephrectomy. ALLERGIES PENICILLIN. CONTRAST MEDIA MEDICATIONS: 1. Abilify. 2. Nortriptyline. 3. Lamictal. 4. Propranolol. 5. Pravachol. 6. Levothyroxine SOCIAL HISTORY: No tobacco. Quit five years ago. REVIEW OF SYSTEMS: As above in the HPI, 12 systems unremarkable. On appearance, depressed appearing female, stated age, thin, in no acute distress. HEAD: Normocephalic, atraumatic. Pupils equal and reactive. Oral mucosa pink, moist. NECK: Supple. No JVD. HEART: S1-S2, Regular rate and rhythm. No murmurs, rubs, or gallops. LUNGS: Clear to auscultation. No rales, rhonchi or wheezing. ABDOMEN: Soft, nontender, no masses or organomegaly. EXTREMITIES: No clubbing, cyanosis or edema. LABORATORY DATA: Hemoglobin 14, hematocrit 43, white blood cell count 7.9, platelet count 228, sodium 137, potassium 3.8, BUN 11, creatinine 0.74. RADIOLOGIC STUDIES: The barium swallow did show small amounts of extraluminal contrasting around the distal esophagus and medial stomach. IMPRESSION: This patient is status post EGD with esophageal dilation with post barium swallow and results as above. At this time, again Dr. Palumbo was in the room and discussed the case. He is holding off on the NG tube placement. Will keep the patient n.p.o. and hopes that this would heal the small area of perforation and repeat the barium swallow in 48 hours. Again, will discuss the case with Dr. Ciarra Ferrera. Dictated by: Sol Howell JUDGE CLERK-C MD KRISTOPHER Killian/TRE /4:52 PM /8:20 AM
[2017-02-21] MEDS: PRAVASTATIN SOD 40 MG TAB PO SCH (09:00)
[2017-02-21] MEDS: MEGESTROL ACETATE SUSP 400 MG/10 ML CUP PO SCH (09:00)
[2017-02-21] MEDS: CIPROFLOXACIN 400 MG PREMIX 200 ML IV SCH ×2 (09:00→21:59)
--- NOTE | 2017-02-21 09:07 | HHI.PYPN ---
Subjective Remarks Patient seen for follow, chart reviewed. After discussion with nursing staff patient's lab came back with a CBC within normal limits, patient has not had a bowel movement as of yet. NG tube placement by primary medical team was postponed yesterday. Patient found lying in hospital bed asleep but was able to wake up to engage in interview today. Patient states she has been feeling "the same" but also reports feeling depressed (10/10). Patient states that she is afraid that she might in the hospital. Patient provided supportive psychotherapy and reminded that she has a good support system and provided hope for recovery. Patient at this time denies any suicidal ideations, denies HI, AVH or delusions. Review of Systems Except as stated in HPI: all other systems reviewed are Neg Objective Alert: Yes [place]: Person, Place, Date (partial) Mood: Depressed Affect: Other (dysthymic) Memory Intact: Comment (Not formally tested) Hallucinations: Other (denies) Delusions: No Delusion Type: Other (denies) Suicidal: Ideation (denies ) Homicidal: Ideation (denies) Insight/Judgment Fair insight, impulse control and judgment Labs Labs reviewed. Test 02/20/17 13:45 White Blood Count 7.9 TH/MM3 Red Blood Count 4.96 MIL/MM3 Hemoglobin 14.1 GM/DL Hematocrit 43.6 % Mean Corpuscular Volume 88.0 FL Mean Corpuscular Hemoglobin 28.5 PG Mean Corpuscular Hemoglobin 32.4 % Concent Red Cell Distribution Width 13.8 % Platelet Count 228 TH/MM3 Mean Platelet Volume 10.4 FL Neutrophils (%) (Auto) 66.2 % Lymphocytes (%) (Auto) 23.3 % Monocytes (%) (Auto) 8.7 % Eosinophils (%) (Auto) 1.3 % Basophils (%) (Auto) 0.5 % Neutrophils # (Auto) 5.2 TH/MM3 Lymphocytes # (Auto) 1.8 TH/MM3 Monocytes # (Auto) 0.7 TH/MM3 Eosinophils # (Auto) 0.1 TH/MM3 Basophils # (Auto) 0.0 TH/MM3 CBC Comment DIFF FINAL Differential Comment Vitals/IOs Vital Signs Date Time Temp Pulse Resp B/P Pulse Ox O2 Delivery O2 Flow Rate FiO2 02/21/17 05:46 97.9 83 16 118/50 98 Intake and Output 02/20/17 02/20/17 02/21/17 08:00 16:00 00:00 Intake Total 0 ml 960 ml Balance 0 ml 960 ml Assessment & Plan Problem List: (1) Bipolar disorder, curr episode depressed, severe, w/psychotic features ICD Code: F31.5 Assessment & Plan Patient at this time continues to endorse depressive symptoms but denies any suicide ideation but did have concern of dying in the hospital. Patient initially it started to improve with decreased depressive mood until after EGD procedure done and was found to have tears/perforation esophagus requiring NG tube placement patient began to worsen with depressed mood due to the same. Recommendations as per primary medical team. Will continue current treatment for now and we'll titrate as needed. Continue to monitor her medication response and adverse drug reactions. Discharge planning in progress Justification for Cont. Inpt. Patient at risk for further decompensation if it lower level of care Discharge Planning In progress Mitch Cruz MD Feb 21, 2017 09:07
[2017-02-21 10:45] LABS: AUTOMATED NEUTROPHIL # 5.7 TH/MM3 (1.8-7.7); BASOPHIL % 0.4 % (0.0-2.0); EOSINOPHIL # 0.1 TH/MM3 (0-0.4); EOSINOPHIL % 1.4 % (0.0-4.0); HEMATOCRIT 37.9 % (35.0-46.0); HEMO FLAGS DIFF FINAL; LYMPH % 23.5 % (9.0-44.0); MEAN CELL VOLUME 88.7 FL (80.0-100.0); MEAN CORPUSCULAR HEMOGLOBIN 28.3 PG (27.0-34.0); MONO % 9.5 % (0.0-8.0); NEUT % 65.2 % (16.0-70.0); PLATELET COUNT 130 TH/MM3 (150-450); RED BLOOD COUNT 4.27 MIL/MM3 (4.00-5.30); RED CELL DISTRIBUTION WIDTH 13.6 % (11.6-17.2); WHITE BLOOD COUNT 8.7 TH/MM3 (4.0-11.0)
[2017-02-21 11:01] LABS: BICARBONATE 30.7 MEQ/L (21.0-32.0); POTASSIUM 3.6 MEQ/L (3.5-5.1)
--- NOTE | 2017-02-21 11:10 | HHI.GIFU ---
Subjective Remarks Resting in bed in no distress. Afebrile. No n/v. States she cannot swallow. States no bm. (Elizabeth Mills) Objective Vitals I&O Vital Signs Date Time Temp Pulse Resp B/P Pulse Ox O2 Delivery O2 Flow Rate FiO2 02/21/17 05:46 97.9 83 16 118/50 98 02/20/17 18:02 97.8 81 16 113/53 99 I/O 02/20/17 02/20/17 02/20/17 02/21/17 02/21/17 02/21/17 07:00 15:00 23:00 07:00 15:00 23:00 Intake Total 121 ml 960 ml 1317 ml Balance 121 ml 960 ml 1317 ml Intake Oral 121 ml 960 ml IV Total 1317 ml # Voids 1 1 4 1 Laboratory Laboratory Tests Test 02/20/17 02/21/17 02/21/17 13:45 09:48 09:57 White Blood Count 7.9 8.7 Red Blood Count 4.96 4.27 Hemoglobin 14.1 12.1 Hematocrit 43.6 37.9 Mean Corpuscular Volume 88.0 88.7 Mean Corpuscular Hemoglobin 28.5 28.3 Mean Corpuscular Hemoglobin 32.4 32.0 Concent Red Cell Distribution Width 13.8 13.6 Platelet Count 228 130 Mean Platelet Volume 10.4 9.8 Neutrophils (%) (Auto) 66.2 65.2 Lymphocytes (%) (Auto) 23.3 23.5 Monocytes (%) (Auto) 8.7 9.5 Eosinophils (%) (Auto) 1.3 1.4 Basophils (%) (Auto) 0.5 0.4 Neutrophils # (Auto) 5.2 5.7 Lymphocytes # (Auto) 1.8 2.0 Monocytes # (Auto) 0.7 0.8 Eosinophils # (Auto) 0.1 0.1 Basophils # (Auto) 0.0 0.0 CBC Comment DIFF FINAL DIFF FINAL Differential Comment Sodium Level 140 Potassium Level 3.6 Chloride Level 106 Carbon Dioxide Level 30.7 Anion Gap 3 Blood Urea Nitrogen 9 Creatinine 0.52 Estimat Glomerular Filtration 117 Rate Random Glucose 98 Calcium Level 9.5 Imaging Last Impressions Barium Swallow X-Ray 02/20/17 0000 Signed Impressions: Service Date/Time: Monday, February 20, 2017 11:12 - CONCLUSION: Small amounts of extraluminal contrast seen around the distal esophagus and medial stomach. Imtiaz Rivero MD Physical Exam HEENT: Normocephalic; atraumatic; no jaundice. CHEST: CTA CARDIAC: RRR ABDOMEN: Soft, mildly distended, nontender; no hepatosplenomegaly; bowel sounds are present EXTREMITIES: No clubbing, cyanosis, or edema. SKIN: Normal; no rash; no jaundice. STUDENT SUPPORT SERVICES DIRECTOR: Alert (Elizabeth Mills) Assessment and Plan Plan ASSESSMENT - Dysphagia, poor PO intake, has responded to esophageal dilatation in past. S/ P EGD with dilatation and random biopsies (02/19/17)----> Normal EGD, S/P random biopsies. There was no obvious etiology for her symptoms on EGD and therefore Barium Swallow was ordered. Barium Swallow X-Ray (02/20/17)----> Small amounts of extraluminal contrast seen around the distal esophagus and medial stomach. I came to see patient, but she had already had her lunch. She reports that she is not able to swallow, but the nurses report that she has been tolerating her diet. Clinically, she is not in any distress- afebrile, no n/v/pain/odynophagia. WBC was unremarkable. NPO. IVF. S/P CVT evaluation, plan is to keep NPO except ice chips and plan for rpt. barium swallow tomorrow. Cipro/flagyl - Constipation. Took MOM. No results. Dulcolax suppository was ordered, but not given to patient. - Bipolar disorder with depressive sx, per attending PLAN - NPO except ice chips - IVF - Dulcolax 10mg suppository x 1 today - CVT following, plan is for repeat barium swallow tomorrow afternoon - Supportive care - Further recommendations to follow based on results of above - Patient seen and examined by Dr. Palumbo and myself and this note is written on his behalf (Elizabeth Mills) Physician Comments Patient seen and examined Agree with above Continue with current supportive care Monitor labs Barium swallow tomorrow (Zacarias Palumbo MD) Elizabeth Mills Feb 21, 2017 11:10 Zacarias Palumbo MD Feb 21, 2017 18:00
[2017-02-21] MEDS ORDERED: BISACODYL 10 MG SUPP RECTAL ONE (11:15)
--- NOTE | 2017-02-21 14:34 | HHI.PR ---
Subjective Remarks deferred entry - patient seen at 11:30 patient denies cp/sob denies fevers/chills denies nausea or vomiting Objective Vitals Vital Signs Date Time Temp Pulse Resp B/P Pulse Ox O2 Delivery O2 Flow Rate FiO2 02/21/17 05:46 97.9 83 16 118/50 98 02/20/17 18:02 97.8 81 16 113/53 99 I/O 02/20/17 02/20/17 02/20/17 02/21/17 02/21/17 02/21/17 07:00 15:00 23:00 07:00 15:00 23:00 Intake Total 121 ml 960 ml 1317 ml 700 ml Balance 121 ml 960 ml 1317 ml 700 ml Intake Oral 121 ml 960 ml IV Total 1317 ml 700 ml # Voids 1 1 4 1 Result Diagram: 02/21/17 0948 02/21/17 0957 Imaging Last Impressions Barium Swallow X-Ray 02/20/17 0000 Signed Impressions: Service Date/Time: Monday, February 20, 2017 11:12 - CONCLUSION: Small amounts of extraluminal contrast seen around the distal esophagus and medial stomach. Imtiaz Rivero MD Objective Remarks GENERAL: Very pleasant 71-year-old female, very skinny, in the chair appears in not acute distress. CARDIOVASCULAR: Regular rate and rhythm without murmurs, gallops, or rubs. RESPIRATORY: Breath sounds equal bilaterally. No accessory muscle use. GASTROINTESTINAL: Abdomen soft,mildly tender to palpation of hypogastrium. MUSCULOSKELETAL: No cyanosis, or edema. PSYCHIATRIC: Alert and oriented x 3, no overt signs of anxiety/depression. Pleasant and cooperative. Procedures EGD with esophageal dilation planned for Sunday (02/19/17). Medications and IVs Current Medications Medications (Trade) Dose Ordered Sig/Dasia Route Start Time Stop Time Status Last Admin (Tylenol) 650 mg Q4H PRN PO 02/15/17 18:15 02/18/17 08:34 (Milk Of Magnesia Liq) 30 ml DAILY PRN PO 02/15/17 18:15 Hold 02/19/17 19:54 (Mag-Al Plus Susp Liq) 30 ml Q6H PRN PO 02/15/17 18:15 (LaMICtal) 150 mg HS PO 02/16/17 21:00 02/20/17 21:56 (Pravachol) 40 mg DAILY PO 02/17/17 09:00 02/20/17 09:31 (Pill Splitter) 1 ea UNSCH PRN OTHER 02/17/17 11:15 (Remeron) 15 mg HS PO 02/18/17 21:00 02/20/17 21:56 (Drisdol) 50,000 units Q7D PO 02/19/17 13:00 02/19/17 16:31 Megestrol Acetate 400 mg 400 mg DAILY PO 02/19/17 14:30 02/20/17 09:36 (NS 1000 ml Inj) 1,000 ml @ 80 mls/hr [id number] IV 02/20/17 13:00 02/21/17 03:46 (Dulcolax Supp) 10 mg DAILY PRN RECTAL 02/20/17 13:15 (Protonix Inj) 40 mg Q24H IV PUSH 02/20/17 16:00 Levothyroxine Sodium 25 mcg 25 mcg DAILY@06 IV PUSH 02/21/17 06:00 02/21/17 06:29 Ciprofloxacin/ Dextrose 200 ml @ 200 mls/hr Q12H IV 02/20/17 21:00 02/21/17 09:00 (Flagyl 500 Mg Inj) 100 ml @ 100 mls/hr Q8H IV 02/20/17 21:00 02/21/17 12:53 A/P Problem List: (1) Weight loss ICD Code: R63.4 Status: Acute (2) Bipolar disorder, curr episode depressed, severe, w/psychotic features ICD Code: F31.5 Status: Acute (3) Dysphagia ICD Code: R13.10 Status: Acute (4) Hypothyroidism ICD Code: 244.9 Status: Chronic (5) Esophageal perforation ICD Code: K22.3 Status: Acute Assessment and Plan Ms. Martins denied having any medical history. However, per the medical record she is reported to have history of bipolar disease, cardiovascular disease, congestive heart failure, and hypothyroidism. Ms. Martins did not provide much information about herself, with many answers being "I don't know." As such, history is obtained from the medical record. Ms. Martins was brought [place] [facility] [place] family on 02/14/17 for worsening depression. It is reported she has had decreased food and fluid intake for several weeks. Medical record cites pt's daughter as this being "the worst depression." Pt is reported to take food into her mouth but not swallow. Dr. Cruz has consulted the Hospitalist team to provide medical management. Major Depressive Episode -Treatment per psychiatry Anorexia Dysphagia Severe protein calorie malnutrition. 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 GI consulted, EGD with esophageal dilation planned for 02/19 Speech language pathologist reported reviewed, negative findings. 02/19 Consumer Safety Officer consulted for calorie count. Recommended Ensure Enlive tid to offer 350 kcal and 20g Protein per serving. and appetite stimulant. Will start the patient on Megace. For EGD w Dilation today. 02/20 sp EGD and dilation on 02/20. Patient is sp Barium swallow which which shows extraluminal contrast around distal esophagus. Will start on IV zosyn empirically and consult cardiothoracic surgery. Keep NPO, ng tube to suction. Case discussed with Dr Palumbo. More than 24 hrs after procedure and patient looks stable at this time. appreciate CT surgery consultation and recommendations. Conservative management recommended. Continue ciprofloxacin and IV Flagyl empirically. Continue nothing by mouth, NG tube placement was deferred. A repeat barium swallow will be obtained tomorrow to see if there is any healing of the perforation. Hypothyroidism Home regimen Levothyroxine 0.88 mcg/day TSH level 0.222, decreased levothyroxine to 50 mcg po daily Continue current regimen. 02/21 continue levothyroxine IV. Hyperlipidemia -Hold patient npo. Collins Ortega MD Feb 21, 2017 14:34
[2017-02-21] MEDS: PANTOPRAZOLE SODIUM 40 MG VIAL IV PUSH SCH (16:00)
--- NOTE | 2017-02-21 16:58 | PD.CAR.PN ---
CVT Progress Note Subjective/Hospital Course: pt remains NPO, for repeat barium swallow in evening, c/o of some dysphagia when swallowing after chewing on ice chips no nausea vomiting or pain 02/20 sp EGD and dilation on 02/20. Patient is sp Barium swallow which which shows extraluminal contrast around distal esophagus. Case discussed with Dr Palumbo. More than 24 hrs after procedure and patient looks stable at this time. conservative management at this time ciprofloxacin and IV Flagyl empirically. Continue nothing by mouth, NG tube placement was deferred. A repeat barium swallow scheduled for am Objective: GENERAL: SKIN: Warm and dry. HEAD: Normocephalic. EYES: No scleral icterus. No injection or drainage. NECK: Supple, trachea midline. No JVD or lymphadenopathy. CARDIOVASCULAR: Regular rate and rhythm without murmurs, gallops, or rubs. RESPIRATORY: Breath sounds equal bilaterally. No accessory muscle use. GASTROINTESTINAL: Abdomen soft, non-tender, nondistended. MUSCULOSKELETAL: No cyanosis, or edema. BACK: Nontender without obvious deformity. No CVA tenderness. Vital Signs Date Time Temp Pulse Resp B/P Pulse Ox O2 Delivery O2 Flow Rate FiO2 02/21/17 05:46 97.9 83 16 118/50 98 02/20/17 18:02 97.8 81 16 113/53 99 Labs: Laboratory Tests Test 02/21/17 02/21/17 09:48 09:57 White Blood Count 8.7 TH/MM3 (4.0-11.0) Red Blood Count 4.27 MIL/MM3 (4.00-5.30) Hemoglobin 12.1 GM/DL (11.6-15.3) Hematocrit 37.9 % (35.0-46.0) Mean Corpuscular Volume 88.7 FL (80.0-100.0) Mean Corpuscular Hemoglobin 28.3 PG (27.0-34.0) Mean Corpuscular Hemoglobin 32.0 % Concent (32.0-36.0) Red Cell Distribution Width 13.6 % (11.6-17.2) Platelet Count 130 TH/MM3 (150-450) Mean Platelet Volume 9.8 FL (7.0-11.0) Neutrophils (%) (Auto) 65.2 % (16.0-70.0) Lymphocytes (%) (Auto) 23.5 % (9.0-44.0) Monocytes (%) (Auto) 9.5 % (0.0-8.0) Eosinophils (%) (Auto) 1.4 % (0.0-4.0) Basophils (%) (Auto) 0.4 % (0.0-2.0) Neutrophils # (Auto) 5.7 TH/MM3 (1.8-7.7) Lymphocytes # (Auto) 2.0 TH/MM3 (1.0-4.8) Monocytes # (Auto) 0.8 TH/MM3 (0-0.9) Eosinophils # (Auto) 0.1 TH/MM3 (0-0.4) Basophils # (Auto) 0.0 TH/MM3 (0-0.2) CBC Comment DIFF FINAL Differential Comment Sodium Level 140 MEQ/L (136-145) Potassium Level 3.6 MEQ/L (3.5-5.1) Chloride Level 106 MEQ/L (98-107) Carbon Dioxide Level 30.7 MEQ/L (21.0-32.0) Anion Gap 3 MEQ/L (5-15) Blood Urea Nitrogen 9 MG/DL (7-18) Creatinine 0.52 MG/DL (0.50-1.00) Estimat Glomerular Filtration 117 ML/MIN Rate (>89) Random Glucose 98 MG/DL (74-106) Calcium Level 9.5 MG/DL (8.5-10.1) Result Diagram: 02/21/17 0948 02/21/17 0957 (1) Lin Torres Feb 21, 2017 16:58
[2017-02-21 18:00] VITALS: BP 103/46; PULSE 92; RESP 18; TEMP 98.1; O2SAT 100
[2017-02-21] MEDS: MIRTAZAPINE 15 MG TAB PO SCH (21:21)
[2017-02-21] MEDS: lamoTRIgine 100 MG TAB PO SCH (21:21)
[2017-02-22] MEDS: SODIUM CHLOR 0.9% 1000 ML INJ 1,000 ML IV SCH (02:30)
[2017-02-22] MEDS: metroNIDAZOLE 500 MG INJ 100 ML IV SCH ×3 (04:56→23:00)
[2017-02-22 06:15] VITALS: BP 167/69; PULSE 84; RESP 14; TEMP 98.5; O2SAT 99
[2017-02-22] MEDS: LEVOTHYROXINE SODIUM 100 MCG VIAL IV PUSH SCH (06:40)
[2017-02-22] MEDS: CIPROFLOXACIN 400 MG PREMIX 200 ML IV SCH ×2 (09:00→22:17)
[2017-02-22] MEDS: MEGESTROL ACETATE SUSP 400 MG/10 ML CUP PO SCH (09:00)
[2017-02-22] MEDS: PRAVASTATIN SOD 40 MG TAB PO SCH (09:00)
--- NOTE | 2017-02-22 10:30 | HHI.GIFU ---
Subjective Remarks Resting in bed in no distress. No odynophagia. States she cannot swallow well , states "that will never change." Afebrile. (Elizabeth Mills) Objective Vitals I&O Vital Signs Date Time Temp Pulse Resp B/P Pulse Ox O2 Delivery O2 Flow Rate FiO2 02/22/17 06:15 98.5 84 14 167/69 99 02/21/17 18:00 98.1 92 18 103/46 100 I/O 02/21/17 02/21/17 02/21/17 02/22/17 02/22/17 02/22/17 06:59 14:59 22:59 06:59 14:59 22:59 Intake Total 1317 ml 700 ml 0 ml 0 ml Balance 1317 ml 700 ml 0 ml 0 ml Intake Oral 0 ml 0 ml 0 ml IV Total 1317 ml 700 ml # Voids 1 3 1 1 # Bowel Movements 0 1 Imaging Last Impressions Barium Swallow X-Ray 02/20/17 0000 Signed Impressions: Service Date/Time: Monday, February 20, 2017 11:12 - CONCLUSION: Small amounts of extraluminal contrast seen around the distal esophagus and medial stomach. Imtiaz Rivero MD Physical Exam HEENT: Normocephalic; atraumatic; no jaundice. CHEST: CTA CARDIAC: RRR ABDOMEN: Soft, mildly distended, nontender; no hepatosplenomegaly; bowel sounds are present EXTREMITIES: No clubbing, cyanosis, or edema. SKIN: Normal; no rash; no jaundice. GUEST HISTORY CLERK: Alert (Elizabeth Mills) Assessment and Plan Plan ASSESSMENT - Dysphagia, poor PO intake, has responded to esophageal dilatation in past. S/ P EGD with dilatation and random biopsies (02/19/17)----> Normal EGD, S/P random biopsies. There was no obvious etiology for her symptoms on EGD and therefore Barium Swallow was ordered. Barium Swallow X-Ray (02/20/17)----> Small amounts of extraluminal contrast seen around the distal esophagus and medial stomach. I came to see patient, but she had already had her lunch. She reports that she is not able to swallow, but the nurses report that she has been tolerating her diet. Clinically, she is not in any distress- afebrile, no n/v/pain/odynophagia. She does c/o not being able to swallow and states "that will never change." WBC was unremarkable. NPO. IVF. S/P CVT evaluation. Plan is for Barium swallow today. Cipro/ flagyl - Constipation. Dulcolax suppository was ordered, but not given to patient. (+) - Bipolar disorder with depressive sx, per attending PLAN - NPO except ice chips - IVF - Barium Swallow today - CVT following - Supportive care - Further recommendations to follow based on results of above - Patient seen and examined by Dr. Palumbo and myself and this note is written on his behalf (Elizabeth Mills) Physician Comments Patient seen and examined Agree with above Continue with current supportive care Monitor labs Repeat barium swallow shows resolution of leakage Okay to resume regular intake (Zacarias Palumbo MD) Elizabeth Mills Feb 22, 2017 10:30 Zacarias Palumbo MD Feb 22, 2017 17:00
[2017-02-22 10:51] LABS: AUTOMATED NEUTROPHIL # 5.5 TH/MM3 (1.8-7.7); BASOPHIL % 0.4 % (0.0-2.0); EOSINOPHIL # 0.1 TH/MM3 (0-0.4); EOSINOPHIL % 1.3 % (0.0-4.0); HEMATOCRIT 37.1 % (35.0-46.0); HEMO FLAGS DIFF FINAL; LYMPH % 17.8 % (9.0-44.0); LYMPHOCYTE # 1.4 TH/MM3 (1.0-4.8); MEAN CELL VOLUME 89.8 FL (80.0-100.0); MEAN CORPUSCULAR HEMOGLOBIN 29.3 PG (27.0-34.0); MEAN CORPUSCULAR HGB CONC 32.6 % (32.0-36.0); MONO % 11.3 % (0.0-8.0); NEUT % 69.2 % (16.0-70.0); PLATELET COUNT 127 TH/MM3 (150-450); RED BLOOD COUNT 4.13 MIL/MM3 (4.00-5.30); RED CELL DISTRIBUTION WIDTH 13.5 % (11.6-17.2); WHITE BLOOD COUNT 7.9 TH/MM3 (4.0-11.0)
[2017-02-22 11:07] LABS: BICARBONATE 26.1 MEQ/L (21.0-32.0); POTASSIUM 3.1 MEQ/L (3.5-5.1)
[2017-02-22 11:47] VITALS: BP 127/57; PULSE 88
--- NOTE | 2017-02-22 13:58 | HHI.PR ---
Subjective Remarks defrred entry - patient seen earlier at 11:15 am denies cp/sob denies fevers/chills Objective Vitals Vital Signs Date Time Temp Pulse Resp B/P Pulse Ox O2 Delivery O2 Flow Rate FiO2 02/22/17 11:47 88 127/57 02/22/17 06:15 98.5 84 14 167/69 99 02/21/17 18:00 98.1 92 18 103/46 100 I/O 02/21/17 02/21/17 02/21/17 02/22/17 02/22/17 02/22/17 06:59 14:59 22:59 06:59 14:59 22:59 Intake Total 1317 ml 700 ml 0 ml 0 ml 0 ml Balance 1317 ml 700 ml 0 ml 0 ml 0 ml Intake Oral 0 ml 0 ml 0 ml 0 ml IV Total 1317 ml 700 ml # Voids 1 3 1 1 # Bowel Movements 0 1 Result Diagram: 02/22/17 1000 02/22/17 1000 Imaging Last Impressions Barium Swallow X-Ray 02/20/17 0000 Signed Impressions: Service Date/Time: Monday, February 20, 2017 11:12 - CONCLUSION: Small amounts of extraluminal contrast seen around the distal esophagus and medial stomach. Imtiaz Rivero MD Objective Remarks GENERAL: Very pleasant 71-year-old female, very skinny, in the chair appears in not acute distress. CARDIOVASCULAR: Regular rate and rhythm without murmurs, gallops, or rubs. RESPIRATORY: Breath sounds equal bilaterally. No accessory muscle use. GASTROINTESTINAL: Abdomen soft,mildly tender to palpation of hypogastrium. MUSCULOSKELETAL: No cyanosis, or edema. PSYCHIATRIC: Alert and oriented x 3, no overt signs of anxiety/depression. Pleasant and cooperative. Procedures EGD with esophageal dilation planned for Sunday (02/19/17). Medications and IVs Current Medications Medications (Trade) Dose Ordered Sig/Dasia Route Start Time Stop Time Status Last Admin (Tylenol) 650 mg Q4H PRN PO 02/15/17 18:15 02/18/17 08:34 (Milk Of Magnesia Liq) 30 ml DAILY PRN PO 02/15/17 18:15 Hold 02/19/17 19:54 (Mag-Al Plus Susp Liq) 30 ml Q6H PRN PO 02/15/17 18:15 (LaMICtal) 150 mg HS PO 02/16/17 21:00 02/21/17 21:21 (Pravachol) 40 mg DAILY PO 02/17/17 09:00 02/20/17 09:31 (Pill Splitter) 1 ea UNSCH PRN OTHER 02/17/17 11:15 (Remeron) 15 mg HS PO 02/18/17 21:00 02/21/17 21:21 (Drisdol) 50,000 units Q7D PO 02/19/17 13:00 02/19/17 16:31 Megestrol Acetate 400 mg 400 mg DAILY PO 02/19/17 14:30 02/20/17 09:36 (NS 1000 ml Inj) 1,000 ml @ 80 mls/hr [id number] IV 02/20/17 13:00 02/21/17 14:00 (Dulcolax Supp) 10 mg DAILY PRN RECTAL 02/20/17 13:15 (Protonix Inj) 40 mg Q24H IV PUSH 02/20/17 16:00 Levothyroxine Sodium 25 mcg 25 mcg DAILY@06 IV PUSH 02/21/17 06:00 02/22/17 06:40 Ciprofloxacin/ Dextrose 200 ml @ 200 mls/hr Q12H IV 02/20/17 21:00 02/22/17 09:00 (Flagyl 500 Mg Inj) 100 ml @ 100 mls/hr Q8H IV 02/20/17 21:00 02/22/17 12:10 A/P Problem List: (1) Weight loss ICD Code: R63.4 Status: Acute (2) Bipolar disorder, curr episode depressed, severe, w/psychotic features ICD Code: F31.5 Status: Acute (3) Dysphagia ICD Code: R13.10 Status: Acute (4) Hypothyroidism ICD Code: 244.9 Status: Chronic (5) Esophageal perforation ICD Code: K22.3 Status: Acute Assessment and Plan Ms. Martins denied having any medical history. However, per the medical record she is reported to have history of bipolar disease, cardiovascular disease, congestive heart failure, and hypothyroidism. Ms. Martins did not provide much information about herself, with many answers being "I don't know." As such, history is obtained from the medical record. Ms. Munzell was brought to [facility] [place] family on 02/14/17 for worsening depression. It is reported she has had decreased food and fluid intake for several weeks. Medical record cites pt's daughter as this being "the worst depression." Pt is reported to take food into her mouth but not swallow. Dr. Cruz has consulted the Hospitalist team to provide medical management. Major Depressive Episode -Treatment per psychiatry Anorexia Dysphagia Severe protein calorie malnutrition. 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 GI consulted, EGD with esophageal dilation planned for 02/19 Speech language pathologist reported reviewed, negative findings. 02/19 Correctional Guard consulted for calorie count. Recommended Ensure Enlive tid to offer 350 kcal and 20g Protein per serving. and appetite stimulant. Will start the patient on Megace. For EGD w Dilation today. 02/20 sp EGD and dilation on 02/20. Patient is sp Barium swallow which which shows extraluminal contrast around distal esophagus. Will start on IV zosyn empirically and consult cardiothoracic surgery. Keep NPO, ng tube to suction. Case discussed with Dr Palumbo. More than 24 hrs after procedure and patient looks stable at this time. 02/[address] surgery consultation and recommendations. Conservative management recommended. Continue ciprofloxacin and IV Flagyl empirically. Continue nothing by mouth, NG tube placement was deferred. A repeat barium swallow will be obtained tomorrow to see if there is any healing of the perforation. 02/22 for repeat barium swallow today. Continue empiric IV antibiotics. Hypothyroidism Home regimen Levothyroxine 0.88 mcg/day TSH level 0.222, decreased levothyroxine to 50 mcg po daily Continue current regimen. 02/21 continue levothyroxine IV. Hyperlipidemia -Hold patient npo. Collins Ortega MD Feb 22, 2017 13:58
--- NOTE | 2017-02-22 14:31 | PD.CAR.PN ---
CVT Progress Note Subjective/Hospital Course: pt remains NPO, no N/V for repeat barium swallow today 02/20 sp EGD and dilation on 02/20. Patient is sp Barium swallow which which shows extraluminal contrast around distal esophagus. Case discussed with Dr Palumbo. More than 24 hrs after procedure and patient looks stable at this time. conservative management at this time 02/21 ciprofloxacin and IV Flagyl empirically. Continue nothing by mouth, NG tube placement was deferred. A repeat barium swallow scheduled for am 02/22 await barium swallow today X-Ray (02/20/17)----> Small amounts of extraluminal contrast seen around the distal esophagus and medial stomach Objective: GENERAL: SKIN: Warm and dry. HEAD: Normocephalic. EYES: No scleral icterus. No injection or drainage. NECK: Supple, trachea midline. No JVD or lymphadenopathy. CARDIOVASCULAR: Regular rate and rhythm without murmurs, gallops, or rubs. RESPIRATORY: Breath sounds equal bilaterally. No accessory muscle use. GASTROINTESTINAL: Abdomen soft, non-tender, nondistended. MUSCULOSKELETAL: No cyanosis, or edema. BACK: Nontender without obvious deformity. No CVA tenderness. Vital Signs Date Time Temp Pulse Resp B/P Pulse Ox O2 Delivery O2 Flow Rate FiO2 02/22/17 11:47 88 127/57 02/22/17 06:15 98.5 84 14 167/69 99 02/21/17 18:00 98.1 92 18 103/46 100 Labs: Laboratory Tests Test 02/22/17 10:00 White Blood Count 7.9 TH/MM3 (4.0-11.0) Red Blood Count 4.13 MIL/MM3 (4.00-5.30) Hemoglobin 12.1 GM/DL (11.6-15.3) Hematocrit 37.1 % (35.0-46.0) Mean Corpuscular Volume 89.8 FL (80.0-100.0) Mean Corpuscular Hemoglobin 29.3 PG (27.0-34.0) Mean Corpuscular Hemoglobin 32.6 % Concent (32.0-36.0) Red Cell Distribution Width 13.5 % (11.6-17.2) Platelet Count 127 TH/MM3 (150-450) Mean Platelet Volume 9.8 FL (7.0-11.0) Neutrophils (%) (Auto) 69.2 % (16.0-70.0) Lymphocytes (%) (Auto) 17.8 % (9.0-44.0) Monocytes (%) (Auto) 11.3 % (0.0-8.0) Eosinophils (%) (Auto) 1.3 % (0.0-4.0) Basophils (%) (Auto) 0.4 % (0.0-2.0) Neutrophils # (Auto) 5.5 TH/MM3 (1.8-7.7) Lymphocytes # (Auto) 1.4 TH/MM3 (1.0-4.8) Monocytes # (Auto) 0.9 TH/MM3 (0-0.9) Eosinophils # (Auto) 0.1 TH/MM3 (0-0.4) Basophils # (Auto) 0.0 TH/MM3 (0-0.2) CBC Comment DIFF FINAL Differential Comment Sodium Level 141 MEQ/L (136-145) Potassium Level 3.1 MEQ/L (3.5-5.1) Chloride Level 107 MEQ/L (98-107) Carbon Dioxide Level 26.1 MEQ/L (21.0-32.0) Anion Gap 8 MEQ/L (5-15) Blood Urea Nitrogen 5 MG/DL (7-18) Creatinine 0.37 MG/DL (0.50-1.00) Estimat Glomerular Filtration 173 ML/MIN Rate (>89) Random Glucose 120 MG/DL (74-106) Calcium Level 9.0 MG/DL (8.5-10.1) Result Diagram: 02/22/17 1000 02/22/17 1000 (1) Dysphagia Plan: for repeat barium swallow today Lin Howell Feb 22, 2017 14:31
--- NOTE | 2017-02-22 14:48 | RADRPT ---
EXAM DATE/TIME: 02/22/2017 13:59 [place] COMPARISON: BARIUM SWALLOW, February 20, 2017, 11:12. INDICATIONS : Follow up barium swallow with small leak. FLUORO TIME: 1.5 minutes IMAGE COUNT: 13 CONTRAST: 1. Liquid E-Z Paque Barium Sulfate (60% w/v, 41% w.w) Gastrografin (Diatrizoate Meglumine and Diatrizoate Sodium) MEDICAL HISTORY : Congestive heart failure. Hypothyroidism. Cardiovascular disease. bipolar disorder SURGICAL HISTORY : None. ENCOUNTER: Initial ACUITY: 2 days PAIN SCORE: 0/10 LOCATION: Bilateral neck FINDINGS: A limited barium swallow is performed first with Gastrografin followed by thin barium. Patient was un able to stand and could not roll on her stomach. Deglutition is grossly unremarkable resulting in an unobstructed passage of barium into the proximal esophagus. The gastroesophageal junction appears unr emarkable with no hiatal hernia. The previously noted irregular barium collections are no longer pres ent there is no evidence of extravasated contrast. The stomach appeared unremarkable. CONCLUSION: Negative limited study. The previously noted apparent leakage and extravasated contra st is no longer present. Matthieu Dumont MD on February 22, 2017 at 14:44 Board Certified Radiologist. This report was verified electronically.
[2017-02-22] MEDS: PANTOPRAZOLE SODIUM 40 MG VIAL IV PUSH SCH (16:00)
[2017-02-22] MEDS: POTASSIUM CHLOR 20 MEQ PREMIX 100 ML IV SCH ×2 (16:00→19:57)
--- NOTE | 2017-02-22 17:51 | HHI.PYPN ---
Subjective Remarks Patient seen for follow-up, chart review. After discussion with sister's a staff patient had a repeat barium study done. Patient found lying in hospital bed, noted to be very dysthymic stated that she has been feeling "terrible". She states that she wants IV lines removed but was reiterated to patient that we have not gotten medical clearance for her to resume by mouth intake. Patient noted to be frustrated with being in the hospital and hopes that she is able to be allowed to eat again soon. Patient continues to be hopeless, continuing to endorse suicidal ideations. As noted to be tearful during interview. Patient states that she hopes her family will be visiting as they are her support system. Review of Systems Except as stated in HPI: all other systems reviewed are Neg Objective Alert: Yes [place]: Person, Place, Date (partial) Mood: Depressed Affect: Other (dysthymic) Memory Intact: Comment (Not formally tested) Hallucinations: Other (denies) Delusions: No Delusion Type: Other (denies) Suicidal: Ideation (continues to endorse) Homicidal: Ideation (denies) Insight/Judgment Fair insight, impulse control and judgment Labs Labs reviewed. Test 02/22/17 10:00 White Blood Count 7.9 TH/MM3 Red Blood Count 4.13 MIL/MM3 Hemoglobin 12.1 GM/DL Hematocrit 37.1 % Mean Corpuscular Volume 89.8 FL Mean Corpuscular Hemoglobin 29.3 PG Mean Corpuscular Hemoglobin 32.6 % Concent Red Cell Distribution Width 13.5 % Platelet Count 127 TH/MM3 Mean Platelet Volume 9.8 FL Neutrophils (%) (Auto) 69.2 % Lymphocytes (%) (Auto) 17.8 % Monocytes (%) (Auto) 11.3 % Eosinophils (%) (Auto) 1.3 % Basophils (%) (Auto) 0.4 % Neutrophils # (Auto) 5.5 TH/MM3 Lymphocytes # (Auto) 1.4 TH/MM3 Monocytes # (Auto) 0.9 TH/MM3 Eosinophils # (Auto) 0.1 TH/MM3 Basophils # (Auto) 0.0 TH/MM3 CBC Comment DIFF FINAL Differential Comment Sodium Level 141 MEQ/L Potassium Level 3.1 MEQ/L Chloride Level 107 MEQ/L Carbon Dioxide Level 26.1 MEQ/L Anion Gap 8 MEQ/L Blood Urea Nitrogen 5 MG/DL Creatinine 0.37 MG/DL Estimat Glomerular Filtration 173 ML/MIN Rate Random Glucose 120 MG/DL Calcium Level 9.0 MG/DL Vitals/IOs Vital Signs Date Time Temp Pulse Resp B/P Pulse Ox O2 Delivery O2 Flow Rate FiO2 02/22/17 11:47 88 127/57 02/22/17 06:15 98.5 14 99 Intake and Output 02/21/17 02/21/17 02/22/17 08:00 16:00 00:00 Intake Total 1317 ml 700 ml 0 ml Balance 1317 ml 700 ml 0 ml Assessment & Plan Problem List: (1) Bipolar disorder, curr episode depressed, severe, w/psychotic features ICD Code: F31.5 Assessment & Plan Patient at this time continues to be noted to be very depressed, endorsing suicidal ideations. Patient currently with a medical recommendations for previously noted abnormal very unsteady. Patient had repeat labs to be done today. We'll increase mirtazapine to 30 mg by mouth at bedtime for depression. Continue Lamictal at 150 mg by mouth twice a day for mood stabilization. Patient's current medical condition likely related to her current worsening depressive state. Monitor medication response and adverse drug reactions. Supportive psychotherapy provided. Discharge planning in progress Justification for Cont. Inpt. Patient risk for decompensation if at lower level of care Discharge Planning In progress Mitch Cruz MD Feb 22, 2017 17:51
[2017-02-22 18:00] VITALS: BP 149/66; PULSE 95; RESP 16; TEMP 98.4; O2SAT 99
[2017-02-22] MEDS: lamoTRIgine 100 MG TAB PO SCH (21:24)
[2017-02-22] MEDS: MIRTAZAPINE 15 MG TAB PO SCH (21:24)
[2017-02-23] MEDS: SODIUM CHLOR 0.9% 1000 ML INJ 1,000 ML IV SCH ×2 (02:30→15:40)
[2017-02-23] MEDS: metroNIDAZOLE 500 MG INJ 100 ML IV SCH ×3 (05:14→21:55)
[2017-02-23 06:05] VITALS: BP 122/57; PULSE 86; RESP 14; TEMP 98.4; O2SAT 100
[2017-02-23] MEDS: LEVOTHYROXINE SODIUM 100 MCG VIAL IV PUSH SCH (08:14)
[2017-02-23] MEDS: CIPROFLOXACIN 400 MG PREMIX 200 ML IV SCH ×2 (08:14→21:54)
[2017-02-23] MEDS: MEGESTROL ACETATE SUSP 400 MG/10 ML CUP PO SCH (08:14)
[2017-02-23] MEDS: PRAVASTATIN SOD 40 MG TAB PO SCH (08:14)
--- NOTE | 2017-02-23 09:33 | HHI.PYPN ---
Subjective Remarks Patient seen for follow-up, chart review. After discussion with nursing staff patient continues on IV fluids, NG tube is not indicated at this time as per medical team, patient allowed to eat. Patient found lying in hospital bed noted to be dysthymic and states that she has some increased appetite but continues report difficulty swallowing. Patient was encouraged to attempt to increase her oral intake slowly and that nutrition will come to assess for proper diet. Patient at that she currently feels "bad", continues to have thoughts of not wanting to be alive but is trying to improve. Patient reports adherence to medications but is unable to recall which mother she took them or not. Patient also noted to have some difficulty with memory and does not recall last time she had seen her family visit. Review of Systems Except as stated in HPI: all other systems reviewed are Neg Objective Alert: Yes [place]: Person, Place, Date (partial) Mood: Depressed Affect: Other (dysthymic) Memory Intact: Comment (Not formally tested) Hallucinations: Other (denies) Delusions: No Delusion Type: Other (denies) Suicidal: Ideation (continues to endorse) Homicidal: Ideation (denies) Insight/Judgment Fair insight, impulse control and judgment Remarks Patient at risk for further decompensation if at lower level of care. Labs Labs reviewed. Test 02/22/17 10:00 White Blood Count 7.9 TH/MM3 Red Blood Count 4.13 MIL/MM3 Hemoglobin 12.1 GM/DL Hematocrit 37.1 % Mean Corpuscular Volume 89.8 FL Mean Corpuscular Hemoglobin 29.3 PG Mean Corpuscular Hemoglobin 32.6 % Concent Red Cell Distribution Width 13.5 % Platelet Count 127 TH/MM3 Mean Platelet Volume 9.8 FL Neutrophils (%) (Auto) 69.2 % Lymphocytes (%) (Auto) 17.8 % Monocytes (%) (Auto) 11.3 % Eosinophils (%) (Auto) 1.3 % Basophils (%) (Auto) 0.4 % Neutrophils # (Auto) 5.5 TH/MM3 Lymphocytes # (Auto) 1.4 TH/MM3 Monocytes # (Auto) 0.9 TH/MM3 Eosinophils # (Auto) 0.1 TH/MM3 Basophils # (Auto) 0.0 TH/MM3 CBC Comment DIFF FINAL Differential Comment Sodium Level 141 MEQ/L Potassium Level 3.1 MEQ/L Chloride Level 107 MEQ/L Carbon Dioxide Level 26.1 MEQ/L Anion Gap 8 MEQ/L Blood Urea Nitrogen 5 MG/DL Creatinine 0.37 MG/DL Estimat Glomerular Filtration 173 ML/MIN Rate Random Glucose 120 MG/DL Calcium Level 9.0 MG/DL Vitals/IOs Vital Signs Date Time Temp Pulse Resp B/P Pulse Ox O2 Delivery O2 Flow Rate FiO2 02/23/17 06:05 98.4 86 14 122/57 100 Intake and Output 02/22/17 02/22/17 02/23/17 08:00 16:00 00:00 Intake Total 0 ml 0 ml 840 ml Balance 0 ml 0 ml 840 ml Assessment & Plan Problem List: (1) Bipolar disorder, curr episode depressed, severe, w/psychotic features ICD Code: F31.5 Assessment & Plan Patient continues to be noted to be very dysthymic, with depressed mood and continued to endorse suicidal ideations. Repeat barium swallow did not show any abnormalities. Medical team deferred placement of a NG-tube and allowing patient resume by mouth intake. Patient to be encouraged to continue improving on by mouth nutritional intake. Patient to continue current treatment regimen with possible upward titration of mirtazapine. Supportive psychotherapy provided. Discharge planning in progress. Justification for Cont. Inpt. Patient at risk for further decompensation if at lower level of care. Discharge Planning In progress Mitch Cruz MD Feb 23, 2017 09:33
[2017-02-23] MEDS ORDERED: amLODIPine BESYLATE 5 MG TAB PO SCH (11:30)
--- NOTE | 2017-02-23 12:50 | HHI.PR ---
Subjective Remarks Patient states "it is impossible to swallow" denies fevers/chills denies cp/sob Objective Vitals Vital Signs Date Time Temp Pulse Resp B/P Pulse Ox O2 Delivery O2 Flow Rate FiO2 02/23/17 06:05 98.4 86 14 122/57 100 02/22/17 18:00 98.4 95 16 149/66 99 I/O 02/22/17 02/22/17 02/22/17 02/23/17 02/23/17 02/23/17 06:59 14:59 22:59 06:59 14:59 22:59 Intake Total 0 ml 0 ml 840 ml Balance 0 ml 0 ml 840 ml Intake Oral 0 ml 0 ml 840 ml # Voids 1 2 3 3 # Bowel Movements 1 1 Result Diagram: 02/22/17 1000 02/22/17 1000 Imaging Last 72 hours Impressions Barium Swallow X-Ray 02/22/17 0000 Signed Impressions: Service Date/Time: February 13:59 - CONCLUSION: Negative limited study. The previously noted apparent leakage and extravasated contrast is no longer present. Matthieu Dumont MD Objective Remarks GENERAL: Very pleasant 71-year-old female, very skinny, in the chair appears in not acute distress. CARDIOVASCULAR: Regular rate and rhythm without murmurs, gallops, or rubs. RESPIRATORY: Breath sounds equal bilaterally. No accessory muscle use. GASTROINTESTINAL: Abdomen soft,mildly tender to palpation of hypogastrium. MUSCULOSKELETAL: No cyanosis, or edema. PSYCHIATRIC: Alert and oriented x 3, no overt signs of anxiety/depression. Pleasant and cooperative. Procedures EGD with esophageal dilation planned for Sunday (02/19/17). Medications and IVs Current Medications Medications (Trade) Dose Ordered Sig/Dasia Route Start Time Stop Time Status Last Admin (Tylenol) 650 mg Q4H PRN PO 02/15/17 18:15 02/18/17 08:34 (Milk Of Magnesia Liq) 30 ml DAILY PRN PO 02/15/17 18:15 Hold 02/19/17 19:54 (Mag-Al Plus Susp Liq) 30 ml Q6H PRN PO 02/15/17 18:15 (LaMICtal) 150 mg HS PO 02/16/17 21:00 02/22/17 21:24 (Pravachol) 40 mg DAILY PO 02/17/17 09:00 02/23/17 08:14 (Pill Splitter) 1 ea UNSCH PRN OTHER 02/17/17 11:15 (Drisdol) 50,000 units Q7D PO 02/19/17 13:00 02/19/17 16:31 Megestrol Acetate 400 mg 400 mg DAILY PO 02/19/17 14:30 02/23/17 08:14 (NS 1000 ml Inj) 1,000 ml @ 80 mls/hr [id number] IV 02/20/17 13:00 02/23/17 02:30 (Dulcolax Supp) 10 mg DAILY PRN RECTAL 02/20/17 13:15 (Protonix Inj) 40 mg Q24H IV PUSH 02/20/17 16:00 02/22/17 16:00 Levothyroxine Sodium 25 mcg 25 mcg DAILY@06 IV PUSH 02/21/17 06:00 02/23/17 08:14 Ciprofloxacin/ Dextrose 200 ml @ 200 mls/hr Q12H IV 02/20/17 21:00 02/23/17 08:14 (Flagyl 500 Mg Inj) 100 ml @ 100 mls/hr Q8H IV 02/20/17 21:00 02/23/17 12:29 (Remeron) 30 mg HS PO 02/22/17 21:00 02/22/17 21:24 A/P Problem List: (1) Weight loss ICD Code: R63.4 Status: Acute (2) Bipolar disorder, curr episode depressed, severe, w/psychotic features ICD Code: F31.5 Status: Acute (3) Dysphagia ICD Code: R13.10 Status: Acute (4) Hypothyroidism ICD Code: 244.9 Status: Chronic (5) Esophageal perforation ICD Code: K22.3 Status: Acute Assessment and Plan Ms. Martins denied having any medical history. However, per the medical record she is reported to have history of bipolar disease, cardiovascular disease, congestive heart failure, and hypothyroidism. Ms. Martins did not provide much information about herself, with many answers being "I don't know." As such, history is obtained from the medical record. Ms. Martins was brought to [facility] by family on 02/14/17 for worsening depression. It is reported she has had decreased food and fluid intake for several weeks. Medical record cites pt's daughter as this being "the worst depression." Pt is reported to take food into her mouth but not swallow. Dr. Cruz has consulted the Hospitalist team to provide medical management. Major Depressive Episode -Treatment per psychiatry Anorexia Dysphagia Severe protein calorie malnutrition. 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 GI consulted, EGD with esophageal dilation planned for 02/19 Speech language pathologist reported reviewed, negative findings. 02/19 Design Painter consulted for calorie count. Recommended Ensure Enlive tid to offer 350 kcal and 20g Protein per serving. and appetite stimulant. Will start the patient on Megace. For EGD w Dilation today. 02/20 sp EGD and dilation on 02/20. Patient is sp Barium swallow which which shows extraluminal contrast around distal esophagus. Will start on IV zosyn empirically and consult cardiothoracic surgery. Keep NPO, ng tube to suction. Case discussed with Dr Palumbo. More than 24 hrs after procedure and patient looks stable at this time. 02/[address] surgery consultation and recommendations. Conservative management recommended. Continue ciprofloxacin and IV Flagyl empirically. Continue nothing by mouth, NG tube placement was deferred. A repeat barium swallow will be obtained tomorrow to see if there is any healing of the perforation. 02/22 for repeat barium swallow today. Continue empiric IV antibiotics. 02/23 repeat barium swallow was negative limited study. The previously noted apparent leakage and extravasated contrast is no longer present. The patient has been started on heart healthy diet, however still complaining of dysphagia. We'll follow-up GI recommendations. Hypothyroidism Home regimen Levothyroxine 0.88 mcg/day TSH level 0.222, decreased levothyroxine to 50 mcg po daily Continue current regimen. 02/21 continue levothyroxine IV. Hyperlipidemia -continue statin. Collins Ortega MD Feb 23, 2017 12:50
[2017-02-23] MEDS: PANTOPRAZOLE SODIUM 40 MG VIAL IV PUSH SCH (15:40)
--- NOTE | 2017-02-23 16:20 | HHI.GIFU ---
Subjective Remarks Resting in bed. States she only had ice cream to eat today. Poor appetite and states that she has difficulty swallowing. Went for barium xray yesterday. ( MillsElizabeth) Objective Vitals I&O Vital Signs Date Time Temp Pulse Resp B/P Pulse Ox O2 Delivery O2 Flow Rate FiO2 02/23/17 06:05 98.4 86 14 122/57 100 02/22/17 18:00 98.4 95 16 149/66 99 I/O 02/22/17 02/22/17 02/22/17 02/23/17 02/23/17 02/23/17 07:00 15:00 23:00 07:00 15:00 23:00 Intake Total 0 ml 0 ml 840 ml 240 ml Balance 0 ml 0 ml 840 ml 240 ml Intake Oral 0 ml 0 ml 840 ml 240 ml # Voids 1 2 3 3 # Bowel Movements 1 1 Imaging Last Impressions Barium Swallow X-Ray 02/22/17 0000 Signed Impressions: Service Date/Time: February 13:59 - CONCLUSION: Negative limited study. The previously noted apparent leakage and extravasated contrast is no longer present. Matthieu Dumont MD Physical Exam HEENT: Normocephalic; atraumatic; no jaundice. CHEST: CTA CARDIAC: RRR ABDOMEN: Soft, mildly distended, nontender; no hepatosplenomegaly; bowel sounds are present EXTREMITIES: No clubbing, cyanosis, or edema. SKIN: Normal; no rash; no jaundice. ALMOND PAN FINISHER: Alert (Elizabeth Mills) Assessment and Plan Plan ASSESSMENT - Dysphagia, poor PO intake, has responded to esophageal dilatation in past. S/ P EGD with dilatation and random biopsies (02/19/17)----> Normal EGD, S/P random biopsies. There was no obvious etiology for her symptoms on EGD and therefore Barium Swallow was ordered. Barium Swallow X-Ray (02/20/17)----> Small amounts of extraluminal contrast seen around the distal esophagus and medial stomach. I came to see patient, but she had already had her lunch. She reports that she is not able to swallow, but the nurses report that she has been tolerating her diet. Clinically, she is not in any distress- afebrile, no n/v/pain/odynophagia. She does c/o not being able to swallow and states "that will never change." WBC was unremarkable. NPO. IVF. S/P CVT evaluation. Rpt. Barium Swallow X-Ray (02/22/17)----> Negative limited study. The previously noted apparent leakage and extravasated contrast is no longer present. Cipro/flagyl per medical. States she still has difficulty swallowing and is not eating much. She states that she only had ice cream breakfast. Encourage po intake. Add ensure. - Constipation. Dulcolax suppository was ordered, but not given to patient. (+) - Bipolar disorder with depressive sx, per attending PLAN - [place] - Add ensure with each meal - Manager Strategic Development evaluation - Encourage po intake - CVT following - Supportive care - Further recommendations to follow based on results of above - Patient seen and examined by Dr. Palumbo and myself and this note is written on his behalf (Elizabeth Mills) Physician Comments Patient seen and examined agree with above Continue with current supportive care Monitor labs No further dysphagia just lack of appetite and poor intake relating to her depression Not much to add from a GI standpoint but one can always consider PEG tube placement if the patient is deemed a risk for malnutrition Otherwise at this point we will sign off and please reconsult as needed ( Zacarias Palumbo MD) Elizabeth Mills Feb 23, 2017 16:20 Zacarias Palumbo MD Feb 23, 2017 20:41
[2017-02-23 17:15] LABS: BICARBONATE 29.8 MEQ/L (21.0-32.0); POTASSIUM 3.3 MEQ/L (3.5-5.1)
[2017-02-23 17:33] VITALS: BP 119/53; PULSE 87; RESP 16; TEMP 98.2
[2017-02-23] MEDS: lamoTRIgine 100 MG TAB PO SCH (21:42)
[2017-02-23] MEDS: MIRTAZAPINE 15 MG TAB PO SCH (21:42)
[2017-02-24] MEDS: SODIUM CHLOR 0.9% 1000 ML INJ 1,000 ML IV SCH ×2 (04:30→17:44)
[2017-02-24] MEDS: metroNIDAZOLE 500 MG INJ 100 ML IV SCH ×2 (05:40→12:35)
[2017-02-24] MEDS: LEVOTHYROXINE SODIUM 100 MCG VIAL IV PUSH SCH (05:42)
[2017-02-24 06:14] VITALS: BP 123/58; PULSE 82; RESP 16; TEMP 97.9; O2SAT 99
[2017-02-24] MEDS: MEGESTROL ACETATE SUSP 400 MG/10 ML CUP PO SCH (09:12)
[2017-02-24] MEDS: PRAVASTATIN SOD 40 MG TAB PO SCH (09:12)
[2017-02-24] MEDS: CIPROFLOXACIN 400 MG PREMIX 200 ML IV SCH (09:15)
--- NOTE | 2017-02-24 09:44 | HHI.PYPN ---
Subjective Remarks Patient seen for follow-up, chart reviewed. I discussed with nursing report patient doing quite well, still noted to be withdrawn and flat affect, slept well last night and is starting to eat slightly more now. Patient found lying in hospital bed and states that she had been feeling "the same" and states that she continues to feel very depressed, 10 out of 10 (10 being her worst), although denies any suicide ideations at this time. Patient states that she was visited by her family yesterday which she was happy about. Patient reports trying to eat a little more today. Review of Systems Except as stated in HPI: all other systems reviewed are Neg Objective Alert: Yes [place]: Person, Place, Date (partial) Mood: Depressed Affect: Other (dysthymic) Memory Intact: Comment (Not formally tested) Hallucinations: Other (denies) Delusions: No Delusion Type: Other (denies) Suicidal: Ideation (continues to endorse) Homicidal: Ideation (denies) Insight/Judgment Fair insight, impulse control and judgment Labs Labs reviewed. Test 02/23/17 16:20 Sodium Level 143 MEQ/L Potassium Level 3.3 MEQ/L Chloride Level 109 MEQ/L Carbon Dioxide Level 29.8 MEQ/L Anion Gap 4 MEQ/L Blood Urea Nitrogen 5 MG/DL Creatinine 0.60 MG/DL Estimat Glomerular Filtration 99 ML/MIN Rate Random Glucose 167 MG/DL Calcium Level 8.3 MG/DL Vitals/IOs Vital Signs Date Time Temp Pulse Resp B/P Pulse Ox O2 Delivery O2 Flow Rate FiO2 02/24/17 06:14 97.9 82 16 123/58 99 Intake and Output 02/23/17 02/23/17 02/24/17 08:00 16:00 00:00 Intake Total 240 ml 240 ml Balance 240 ml 240 ml Assessment & Plan Problem List: (1) Bipolar disorder, curr episode depressed, severe, w/psychotic features ICD Code: F31.5 Assessment & Plan Patient is time continues to be noted to be very depressed but denies any suicidal ideations today. Patient reports feeling motivated to want to get better but currently still feeling very depressed. Patient encouraged to continue to improve oral intake which she states she will try. Continue current treatment regimen with upper titration as needed for depression. Continue to encourage patient to increase oral intake. Supportive psychotherapy provided. Discharge planning in progress Justification for Cont. Inpt. Patient at risk for further decompensation if it lower level of care Discharge Planning In progress Mitch Cruz MD Feb 24, 2017 09:44
[2017-02-24] MEDS: POTASSIUM CHLORIDE 25 MEQ EFFERVESCENT TAB NG SCH (11:34)
--- NOTE | 2017-02-24 15:13 | HHI.PR ---
Subjective Remarks Follow up: Anorexia, dysphagia, hypothyroidism and hypolipidemia. Patient seen sitting in chair eating pudding- reports continued difficulty with swallowing both liquids and solids Denies chest pain shortness of breath nausea vomiting diarrhea constipation fevers or chills Objective Vitals Vital Signs Date Time Temp Pulse Resp B/P Pulse Ox O2 Delivery O2 Flow Rate FiO2 02/24/17 06:14 97.9 82 16 123/58 99 02/23/17 17:33 98.2 87 16 119/53 I/O 02/23/17 02/23/17 02/23/17 02/24/17 02/24/17 02/24/17 07:00 15:00 23:00 07:00 15:00 23:00 Intake Total 240 ml 240 ml 0 ml 720 ml Balance 240 ml 240 ml 0 ml 720 ml Intake Oral 240 ml 240 ml 0 ml 720 ml # Voids 3 1 3 # Bowel Movements 1 2 Result Diagram: 02/22/17 1000 02/23/17 1620 Imaging Last Impressions Barium Swallow X-Ray 02/22/17 0000 Signed Impressions: Service Date/Time: February 13:59 - CONCLUSION: Negative limited study. The previously noted apparent leakage and extravasated contrast is no longer present. Matthieu Dumont MD Objective Remarks GENERAL: Very pleasant 71-year-old female, very skinny, in the chair appears in not acute distress. CARDIOVASCULAR: Regular rate and rhythm without murmurs, gallops, or rubs. RESPIRATORY: Breath sounds equal bilaterally. No accessory muscle use. GASTROINTESTINAL: Abdomen soft, mildly tender to palpation MUSCULOSKELETAL: RLE edema 1+ PSYCHIATRIC: Alert and oriented x 3, no overt signs of anxiety/depression. Pleasant and cooperative. Procedures EGD with esophageal dilation planned for Sunday (02/19/17). A/P Problem List: (1) Weight loss ICD Code: R63.4 Status: Acute (2) Bipolar disorder, curr episode depressed, severe, w/psychotic features ICD Code: F31.5 Status: Acute (3) Dysphagia ICD Code: R13.10 Status: Acute (4) Hypothyroidism ICD Code: 244.9 Status: Chronic (5) Esophageal perforation ICD Code: K22.3 Status: Acute Assessment and Plan Ms. Martins denied having any medical history. However, per the medical record she is reported to have history of bipolar disease, cardiovascular disease, congestive heart failure, and hypothyroidism. Ms. Martins did not provide much information about herself, with many answers being "I don't know." As such, history is obtained from the medical record. Ms. Martins was brought [place] [facility] [place] 02/14/17 for worsening depression. It is reported she has had decreased food and fluid intake for several weeks. Medical record cites pt's daughter as this being "the worst depression." Pt is reported to take food into her mouth but not swallow. Dr. Cruz has consulted the Hospitalist team to provide medical management. Major Depressive Episode -Treatment per psychiatry Anorexia Dysphagia Severe protein calorie malnutrition. 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 GI consulted, EGD with esophageal dilation planned for 02/19 Speech language pathologist reported reviewed, negative findings. 02/19 Mask Former consulted for calorie count. Recommended Ensure Enlive tid to offer 350 kcal and 20g Protein per serving. and appetite stimulant. Will start the patient on Megace. For EGD w Dilation today. 02/20 sp EGD and dilation on 02/20. Patient is sp Barium swallow which which shows extraluminal contrast around distal esophagus. Will start on IV zosyn empirically and consult cardiothoracic surgery. Keep NPO, ng tube to suction. Case discussed with Dr Palumbo. More than 24 hrs after procedure and patient looks stable at this time. 02/[address] surgery consultation and recommendations. Conservative management recommended. Continue ciprofloxacin and IV Flagyl empirically. Continue nothing by mouth, NG tube placement was deferred. A repeat barium swallow will be obtained tomorrow to see if there is any healing of the perforation. 02/22 for repeat barium swallow today. Continue empiric IV antibiotics. 02/23 repeat barium swallow was negative limited study. The previously noted apparent leakage and extravasated contrast is no longer present. The patient has been started on heart healthy diet, however still complaining of dysphagia. We'll follow-up GI recommendations. 03/27 discontinue empiric Cipro and Flagyl IV as repeat barium swallow was negative for extravasation Continue calorie count and supplement with meals Hypothyroidism Home regimen Levothyroxine 0.88 mcg/day TSH level 0.222, decreased levothyroxine to 50 mcg po daily Continue current regimen. 02/24 change Synthroid to PO Hyperlipidemia -continue statin. Right lower extremity edema- US to R/O DVT Discussed with patient, nursing and Kelsy Mcknight Feb 24, 2017 15:13
[2017-02-24] MEDS: PANTOPRAZOLE SODIUM 40 MG VIAL IV PUSH SCH (16:43)
[2017-02-24 18:11] VITALS: BP 107/50; PULSE 77; RESP 24; TEMP 97.9; O2SAT 100
--- NOTE | 2017-02-24 18:25 | RADRPT ---
EXAM DATE/TIME: 02/24/2017 17:44 [place] COMPARISON: No previous studies available for comparison. INDICATIONS : Bilateral leg swelling. MEDICAL HISTORY : Congestive heart failure. Hypercholesterolemia. Hypothyroidism. Neck pain. Dentures. Tremors. Dizzin ess. Coronary artery disease. Kidney stones. Jaundice. Depression. Anxiety. SURGICAL HISTORY : Nephrectomy, right. Cervical fusion. Cardiac Catheterization. ENCOUNTER: Initial ACUITY: 1 day PAIN SCORE: 0/10 LOCATION: Bilateral legs. TECHNIQUE: Venous ultrasound of the left and right leg was performed from the inguinal ligament to the proximal calf. Real-time, color Doppler and spectral tracing, compression and augmentation techniques were us ed. FINDINGS: RIGHT LEG: There is normal compressibility of the deep venous system from the inguinal region to the proximal ca lf. No echogenic clot is seen in the lumen of the common femoral, femoral, popliteal, and posterior tibial veins. There is a normal response of the venous system to proximal and distal augmentation an d respiration. LEFT LEG: There is extensive thrombus extending from common femoral vein all the way down to the popliteal vein and below the knee vessels. CONCLUSION: Extensive DVT on the left. Wanda Salazar MD on February 24, 2017 at 18:22 Board Certified Radiologist. This report was verified electronically.
[2017-02-24] MEDS ORDERED: ENOXAPARIN SODIUM 100 MG/ML SYRINGE SQ SCH (21:00)
[2017-02-24] MEDS ORDERED: ENOXAPARIN SODIUM 60 MG/0.6 ML SYRINGE SQ SCH (21:12)
[2017-02-24] MEDS: MIRTAZAPINE 15 MG TAB PO SCH (22:29)
[2017-02-24] MEDS: ENOXAPARIN SODIUM 60 MG/0.6 ML SYRINGE SQ SCH (22:29)
[2017-02-24] MEDS: lamoTRIgine 100 MG TAB PO SCH (22:29)
[2017-02-25 05:26] VITALS: BP 143/80; PULSE 80; RESP 16; TEMP 97.8; O2SAT 99
[2017-02-25] MEDS: SODIUM CHLOR 0.9% 1000 ML INJ 1,000 ML IV SCH ×2 (05:30→17:01)
[2017-02-25] MEDS: LEVOTHYROXINE SODIUM 25 MCG TAB PO SCH (06:15)
[2017-02-25 06:37] LABS: PROTHROMBIN TIME - PATIENT 11.2 SEC (9.8-11.6)
[2017-02-25 06:46] LABS: BICARBONATE 28.1 MEQ/L (21.0-32.0); MAGNESIUM 2.2 MG/DL (1.5-2.5); POTASSIUM 3.4 MEQ/L (3.5-5.1)
[2017-02-25] MEDS: POTASSIUM CHLORIDE 25 MEQ EFFERVESCENT TAB NG SCH (07:48)
[2017-02-25] MEDS: MEGESTROL ACETATE SUSP 400 MG/10 ML CUP PO SCH (07:48)
[2017-02-25] MEDS: PRAVASTATIN SOD 40 MG TAB PO SCH (07:49)
[2017-02-25] MEDS: ENOXAPARIN SODIUM 60 MG/0.6 ML SYRINGE SQ SCH ×2 (10:00→20:53)
[2017-02-25] MEDS: PANTOPRAZOLE SODIUM 40 MG VIAL IV PUSH SCH (16:00)
--- NOTE | 2017-02-25 16:15 | HHI.PR ---
Subjective Remarks Patient states that food gets stucked, it is not that she has poor appetite patient c/o lower extremity edema Objective Vitals Vital Signs Date Time Temp Pulse Resp B/P (MAP) Pulse Ox O2 Delivery O2 Flow Rate FiO2 02/25/17 05:26 97.8 80 16 143/80 (101) 99 02/24/17 18:11 97.9 77 24 107/50 (69) 100 I/O 02/24/17 02/24/17 02/24/17 02/25/17 02/25/17 02/25/17 07:00 15:00 23:00 07:00 15:00 23:00 Intake Total 0 ml 720 ml 840 ml 990 ml 240 ml 120 ml Output Total 2 ml Balance 0 ml 720 ml 838 ml 990 ml 240 ml 120 ml Intake Oral 0 ml 720 ml 840 ml 240 ml 120 ml IV Total 990 ml Output Urine Total 2 ml # Voids 3 1 # Bowel Movements 2 0 Result Diagram: 02/22/17 1000 02/25/17 0605 Objective Remarks GENERAL: Very pleasant 71-year-old female, very skinny, in the chair appears in not acute distress. CARDIOVASCULAR: Regular rate and rhythm without murmurs, gallops, or rubs. RESPIRATORY: Breath sounds equal bilaterally. No accessory muscle use. GASTROINTESTINAL: Abdomen soft,mildly tender to palpation of hypogastrium. MUSCULOSKELETAL: No cyanosis, or edema. PSYCHIATRIC: Alert and oriented x 3, no overt signs of anxiety/depression. Pleasant and cooperative. Procedures EGD with esophageal dilation planned for Sunday (02/19/17). Medications and IVs Current Medications Medications (Trade) Dose Ordered Sig/Dasia Route Start Time Stop Time Status Last Admin (Tylenol) 650 mg Q4H PRN PO 02/15/17 18:15 02/18/17 08:34 (Milk Of Magnesia Liq) 30 ml DAILY PRN PO 02/15/17 18:15 Future Hold 02/19/17 19:54 (Mag-Al Plus Susp Liq) 30 ml Q6H PRN PO 02/15/17 18:15 (LaMICtal) 150 mg HS PO 02/16/17 21:00 02/24/17 22:29 (Pravachol) 40 mg DAILY PO 02/17/17 09:00 02/24/17 09:12 (Pill Splitter) 1 ea UNSCH PRN OTHER 02/17/17 11:15 (Drisdol) 50,000 units Q7D PO 02/19/17 13:00 02/19/17 16:31 (Megace Liq) 400 mg DAILY PO 02/19/17 14:30 Future hold 02/25/17 07:48 Sodium Chloride 1,000 ml @ 80 mls/hr [id number] IV 02/20/17 13:00 02/25/17 05:30 (Dulcolax Supp) 10 mg DAILY PRN RECTAL 02/20/17 13:15 (Protonix Inj) 40 mg Q24H IV PUSH 02/20/17 16:00 02/24/17 16:43 (Remeron) 30 mg HS PO 02/22/17 21:00 02/24/17 22:29 (K-Lyte Cl Eff) 50 meq DAILY NG 02/24/17 10:00 02/25/17 07:48 (Synthroid) 25 mcg DAILY@0600 PO 02/25/17 06:00 02/25/17 06:15 (Lovenox Inj) 50 mg Q12H SQ 02/24/17 22:00 02/25/17 10:00 A/P Problem List: (1) Weight loss ICD Code: R63.4 - Weight loss Status: Acute (2) Bipolar disorder, curr episode depressed, severe, w/psychotic features ICD Code: F31.5 - Bipolar disorder, current episode depressed, severe, with psychotic features Status: Acute (3) Dysphagia ICD Code: R13.10 - Dysphagia, unspecified Status: Acute (4) Hypothyroidism Status: Chronic (5) Esophageal perforation ICD Code: K22.3 - Perforation of esophagus Status: Acute Assessment and Plan Ms. Martins denied having any medical history. However, per the medical record she is reported to have history of bipolar disease, cardiovascular disease, congestive heart failure, and hypothyroidism. Ms. Martins did not provide much information about herself, with many answers being "I don't know." As such, history is obtained from the medical record. Ms. Martins was brought to [facility] by family on 02/14/17 for worsening depression. It is reported she has had decreased food and fluid intake for several weeks. Medical record cites pt's daughter as this being "the worst depression." Pt is reported to take food into her mouth but not swallow. Dr. Cruz has consulted the Hospitalist team to provide medical management. Major Depressive Episode -Treatment per psychiatry Anorexia Dysphagia Esophageal perforation Severe protein calorie malnutrition. 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 GI consulted, EGD with esophageal dilation planned for 02/19 Speech language pathologist reported reviewed, negative findings. 02/19 Tipple Worker consulted for calorie count. Recommended Ensure Enlive tid to offer 350 kcal and 20g Protein per serving. and appetite stimulant. Will start the patient on Megace. For EGD w Dilation today. 02/20 sp EGD and dilation on 02/20. Patient is sp Barium swallow which which shows extraluminal contrast around distal esophagus. Will start on IV zosyn empirically and consult cardiothoracic surgery. Keep NPO, ng tube to suction. Case discussed with Dr Palumbo. More than 24 hrs after procedure and patient looks stable at this time. 02/[address] surgery consultation and recommendations. Conservative management recommended. Continue ciprofloxacin and IV Flagyl empirically. Continue nothing by mouth, NG tube placement was deferred. A repeat barium swallow will be obtained tomorrow to see if there is any healing of the perforation. 02/22 for repeat barium swallow today. Continue empiric IV antibiotics. 02/24 repeat barium swallow was negative limited study. The previously noted apparent leakage and extravasated contrast is no longer present. The patient has been started on heart healthy diet, however still complaining of dysphagia. We'll follow-up GI recommendations. 02/25 GI signed off. Continue calorie count until 02/26. If there is not adequate oral intake may consider PEG tube placement. Hypothyroidism Home regimen Levothyroxine 0.88 mcg/day TSH level 0.222, decreased levothyroxine to 50 mcg po daily 02/25 Switch levothyroxine to oral. Hyperlipidemia -continue statin. DVT Patient with lower extremity swelling and dopler of LLE shows extensive DVT. Patient started on Lovenox SQ at therapeutic dose for DVT. Will transition to oral once patient completes calorie count and there is a definitive plan to treat patient's anorexia and poor oral intake. Collins Ortega MD Feb 25, 2017 16:15
--- NOTE | 2017-02-25 17:23 | HHI.PYPN ---
Subjective Remarks Patient to follow, chart review. After discussion with nursing staff patient continues to be noted to be depressed, was visited by her family should brought [place] food which she ate. Patient continues to be noted to be eating little more slowly but continues to endorse suicidal ideations. Patient had endorsed every swelling which Doppler of LLE showed extensive DVT started on Lovenox SQ. Patient found sitting on hospital chair eating lunch. Patient states that she s been feeling the same when asked what her depression is from 0-10 stated patient states that its a 5 out of 10 at this time (10 being worst). Patient states that she was visited by her family this evening was very happy to have been brought closely which she ate and enjoyed. Patient states that she continues to want to improve and well slowly continued to attempt to eat more. Patient reports continuing having suicidal ideations at this time. Review of Systems Except as stated in HPI: all other systems reviewed are Neg Objective Alert: Yes [place]: Person, Place, Date (partial) Mood: Depressed Affect: Other (less dysthymic today) Memory Intact: Comment (Not formally tested) Hallucinations: Other (denies) Delusions: No Delusion Type: Other (denies) Suicidal: Ideation (continues to endorse) Homicidal: Ideation (denies) Insight/Judgment Fair insight, impulse control and judgment Labs Labs reviewed. Test 02/25/17 06:05 Prothrombin Time 11.2 SEC Prothromb Time International Ratio 1.0 RATIO Blood Urea Nitrogen 7 MG/DL Creatinine 0.47 MG/DL Random Glucose 105 MG/DL Calcium Level 8.8 MG/DL Magnesium Level 2.2 MG/DL Sodium Level 145 MEQ/L Potassium Level 3.4 MEQ/L Chloride Level 111 MEQ/L Carbon Dioxide Level 28.1 MEQ/L Anion Gap 6 MEQ/L Estimat Glomerular Filtration Rate 131 ML/MIN Vitals/IOs Vital Signs Date Time Temp Pulse Resp B/P (MAP) Pulse Ox O2 Delivery O2 Flow Rate FiO2 02/25/17 05:26 97.8 80 16 143/80 (101) 99 Intake and Output 02/25/17 02/25/17 02/25/17 07:59 15:59 23:59 Intake Total 990 ml 360 ml Balance 990 ml 360 ml Assessment & Plan Problem List: (1) Bipolar disorder, curr episode depressed, severe, w/psychotic features ICD Codes: F31.5 - Bipolar disorder, current episode depressed, severe, with psychotic features Status: Acute Assessment & Plan Estimated LOS: 5-7 days. Patient continues to endorse depressive symptoms but a little less today but continues to endorse suicidal ideations at this time. Patient continues to be encouraged to improve and increase nutritional intake. Patient currently diagnosed with extensive DVT of LLE and currently on Lovenox SQ. Patient to continue recommendations as per primary medical team. Will increase mirtazapine to 45 mg by mouth at bedtime for depression once creatinine clearance improves. Supportive psychotherapy provided. Discharge planning in progress Justification for Cont. Inpt. Patient at risk for further decompensation if at a lower level of care Discharge Planning In progress Mitch Cruz MD Feb 25, 2017 17:23
[2017-02-25 18:04] VITALS: BP 107/50; PULSE 91; RESP 17; TEMP 98.1; O2SAT 98
[2017-02-25] MEDS: MIRTAZAPINE 15 MG TAB PO SCH (20:52)
[2017-02-25] MEDS: lamoTRIgine 100 MG TAB PO SCH (20:52)
[2017-02-26] MEDS: LEVOTHYROXINE SODIUM 25 MCG TAB PO SCH (06:27)
[2017-02-26] MEDS: SODIUM CHLOR 0.9% 1000 ML INJ 1,000 ML IV SCH ×2 (06:28→18:20)
[2017-02-26 06:32] VITALS: BP 137/62; PULSE 79; RESP 16; TEMP 98.1; O2SAT 97
--- NOTE | 2017-02-26 08:38 | HHI.PYPN ---
Subjective Remarks Patient seen for follow up, chart reviewed. As discussion with nursing staff patient continues on Lovenox for LLE DVT, patient was visited by family over the weekend. Patient found lying in hospital bed, calm and cooperative interview. Patient states that she had been eating more over the weekend and visited by family which is happy that had brought her [employer] which she enjoyed. She currently feels "the same" continuing with suicidal ideations. Her mood being 6 out of 10 (10 being at worst). That she will continue to try to eat today in order to regain her strength. Patient denies any manic or psychotic symptoms, perceptual disturbances or delusions at this time. Review of Systems Except as stated in HPI: all other systems reviewed are Neg Objective Alert: Yes [place]: Person, Place, Date (partial) Mood: Depressed Affect: Other (less dysthymic today) Memory Intact: Comment (Not formally tested) Hallucinations: Other (denies) Delusions: No Delusion Type: Other (denies) Suicidal: Ideation (continues to endorse) Homicidal: Ideation (denies) Insight/Judgment Fair insight, impulse control and judgment Vitals/IOs Vital Signs Date Time Temp Pulse Resp B/P (MAP) Pulse Ox O2 Delivery O2 Flow Rate FiO2 02/26/17 06:32 98.1 79 16 137/62 (87) 97 Intake and Output 02/26/17 02/26/17 02/27/17 08:00 16:00 00:00 Intake Total 640 ml Balance 640 ml Assessment & Plan Problem List: (1) Bipolar disorder, curr episode depressed, severe, w/psychotic features ICD Codes: F31.5 - Bipolar disorder, current episode depressed, severe, with psychotic features Status: Acute Assessment & Plan Patient is time continues to endorse depressive symptoms, along with suicidal ideations. Patient reports a slightly improved mood but continues to feel depressed. Patient noted that he slightly more. We'll continue to require encouragement for by mouth intake. Continue current treatment for now with plan to increase mirtazapine as creatinine clearance improves. Discharge planning in progress. Continue recommendations as per primary medical team. Justification for Cont. Inpt. Patient at risk for further decompensation at a lower level of care Discharge Planning In progress Mitch Cruz MD Feb 26, 2017 08:38
[2017-02-26] MEDS: PRAVASTATIN SOD 40 MG TAB PO SCH (08:48)
[2017-02-26] MEDS: POTASSIUM CHLORIDE 25 MEQ EFFERVESCENT TAB NG SCH (08:48)
[2017-02-26] MEDS: MEGESTROL ACETATE SUSP 400 MG/10 ML CUP PO SCH (08:48)
[2017-02-26] MEDS: ENOXAPARIN SODIUM 60 MG/0.6 ML SYRINGE SQ SCH ×2 (08:49→23:48)
[2017-02-26] MEDS: ERGOCALCIFEROL (VIT D2) 50,000 UNIT CAP PO SCH (14:59)
[2017-02-26] MEDS: PANTOPRAZOLE SODIUM 40 MG VIAL IV PUSH SCH (14:59)
[2017-02-26 15:52] LABS: BICARBONATE 27.1 MEQ/L (21.0-32.0); POTASSIUM 3.5 MEQ/L (3.5-5.1)
[2017-02-26 18:00] VITALS: BP 145/65; PULSE 85; RESP 17; TEMP 98.6; O2SAT 96
--- NOTE | 2017-02-26 19:12 | HHI.PR ---
Subjective Remarks as per RN patient hving greenish loose stool w C diff odor patient c/o abdominal pain which is diffuse and diarrhea states that she does not want anything anymore and starts crying denies fevers/chills denies nausea or vomiting Objective Vitals Vital Signs Date Time Temp Pulse Resp B/P (MAP) Pulse Ox O2 Delivery O2 Flow Rate FiO2 02/26/17 06:32 98.1 79 16 137/62 (87) 97 I/O 02/25/17 02/25/17 02/25/17 02/26/17 02/26/17 02/26/17 06:59 14:59 22:59 06:59 14:59 22:59 Intake Total 990 ml 240 ml 2460 ml 656 ml 720 ml 240 ml Balance 990 ml 240 ml 2460 ml 656 ml 720 ml 240 ml Intake Oral 240 ml 600 ml 16 ml 720 ml 240 ml IV Total 990 ml 1860 ml 640 ml # Voids 2 2 3 # Bowel Movements 2 Result Diagram: 02/22/17 1000 02/26/17 1433 Imaging Last Impressions Lower Extremity Ultrasound 02/24/17 0000 Signed Impressions: Service Date/Time: Friday, February 24, 2017 17:44 - CONCLUSION: Extensive DVT on the left. K. Mello Salazar MD Barium Swallow X-Ray 02/22/17 0000 Signed Impressions: Service Date/Time: February 13:59 - CONCLUSION: Negative limited study. The previously noted apparent leakage and extravasated contrast is no longer present. Matthieu Dumont MD Objective Remarks GENERAL: Very pleasant 71-year-old female, very skinny, in the chair appears in not acute distress. CARDIOVASCULAR: Regular rate and rhythm without murmurs, gallops, or rubs. RESPIRATORY: Breath sounds equal bilaterally. No accessory muscle use. GASTROINTESTINAL: Abdomen soft,mildly tender to palpation of hypogastrium. MUSCULOSKELETAL: No cyanosis, or edema. PSYCHIATRIC: Alert and oriented x 3, no overt signs of anxiety/depression. Pleasant and cooperative. Procedures EGD with esophageal dilation planned for Sunday (02/19/17). Medications and IVs Current Medications Medications (Trade) Dose Ordered Sig/Dasia Route Start Time Stop Time Status Last Admin (Tylenol) 650 mg Q4H PRN PO 02/15/17 18:15 02/18/17 08:34 (Milk Of Magnesia Liq) 30 ml DAILY PRN PO 02/15/17 18:15 Future hold 02/19/17 19:54 (Mag-Al Plus Susp Liq) 30 ml Q6H PRN PO 02/15/17 18:15 (LaMICtal) 150 mg HS PO 02/16/17 21:00 02/25/17 20:52 (Pravachol) 40 mg DAILY PO 02/17/17 09:00 02/26/17 08:48 (Pill Splitter) 1 ea UNSCH PRN OTHER 02/17/17 11:15 (Drisdol) 50,000 units Q7D PO 02/19/17 13:00 02/26/17 14:59 (Megace Liq) 400 mg DAILY PO 02/19/17 14:30 Future hold 02/26/17 08:48 Sodium Chloride 1,000 ml @ 80 mls/hr [id number] IV 02/20/17 13:00 02/26/17 18:20 (Dulcolax Supp) 10 mg DAILY PRN RECTAL 02/20/17 13:15 (Protonix Inj) 40 mg Q24H IV PUSH 02/20/17 16:00 02/26/17 14:59 (Remeron) 30 mg HS PO 02/22/17 21:00 02/25/17 20:52 (K-Lyte Cl Eff) 50 meq DAILY NG 02/24/17 10:00 02/26/17 08:48 (Synthroid) 25 mcg DAILY@0600 PO 02/25/17 06:00 02/26/17 06:27 (Lovenox Inj) 50 mg Q12H SQ 02/24/17 22:00 02/26/17 08:49 A/P Problem List: (1) Weight loss ICD Code: R63.4 - Weight loss Status: Acute (2) Bipolar disorder, curr episode depressed, severe, w/psychotic features ICD Code: F31.5 - Bipolar disorder, current episode depressed, severe, with psychotic features Status: Acute (3) Dysphagia ICD Code: R13.10 - Dysphagia, unspecified Status: Acute (4) Hypothyroidism Status: Chronic (5) Esophageal perforation ICD Code: K22.3 - Perforation of esophagus Status: Acute Assessment and Plan Ms. Martins denied having any medical history. However, per the medical record she is reported to have history of bipolar disease, cardiovascular disease, congestive heart failure, and hypothyroidism. Ms. Martins did not provide much information about herself, with many answers being "I don't know." As such, history is obtained from the medical record. Ms. Martins was brought to [facility] by family on 02/14/17 for worsening depression. It is reported she has had decreased food and fluid intake for several weeks. Medical record cites pt's daughter as this being "the worst depression." Pt is reported to take food into her mouth but not swallow. Dr. Cruz has consulted the Hospitalist team to provide medical management. Major Depressive Episode -Treatment per psychiatry Anorexia Dysphagia Esophageal perforation Severe protein calorie malnutrition. 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 GI consulted, EGD with esophageal dilation planned for 02/19 Speech language pathologist reported reviewed, negative findings. 02/19 Jump Iron Machine Presser consulted for calorie count. Recommended Ensure Enlive tid to offer 350 kcal and 20g Protein per serving. and appetite stimulant. Will start the patient on Megace. For EGD w Dilation today. 02/20 sp EGD and dilation on 02/20. Patient is sp Barium swallow which which shows extraluminal contrast around distal esophagus. Will start on IV zosyn empirically and consult cardiothoracic surgery. Keep NPO, ng tube to suction. Case discussed with Dr Palumbo. More than 24 hrs after procedure and patient looks stable at this time. 02/[address] surgery consultation and recommendations. Conservative management recommended. Continue ciprofloxacin and IV Flagyl empirically. Continue nothing by mouth, NG tube placement was deferred. A repeat barium swallow will be obtained tomorrow to see if there is any healing of the perforation. 02/22 for repeat barium swallow today. Continue empiric IV antibiotics. 02/24 repeat barium swallow was negative limited study. The previously noted apparent leakage and extravasated contrast is no longer present. The patient has been started on heart healthy diet, however still complaining of dysphagia. We'll follow-up GI recommendations. 02/25 GI signed off. Continue calorie count until 02/26. If there is not adequate oral intake may consider PEG tube placement. 02/26 Awaiting calorie count results and recommendations. Hypothyroidism Home regimen Levothyroxine 0.88 mcg/day TSH level 0.222, decreased levothyroxine to 50 mcg po daily Continue Levothyroxine. Hyperlipidemia -continue statin. Diarrhea Check stool for C diff and place on contact isolation until C diff is ruled out. DVT Patient with lower extremity swelling and dopler of LLE shows extensive DVT. Patient started on Lovenox SQ at therapeutic dose for DVT. Will transition to oral once patient completes calorie count and there is a definitive plan to treat patient's anorexia and poor oral intake. Collins Ortega MD Feb 26, 2017 19:12
[2017-02-26 19:14] LABS: C. DIFF EPI 027 PRESUMPTIVE NEGATIVE (NEGATIVE)
[2017-02-26] MEDS: lamoTRIgine 100 MG TAB PO SCH (23:31)
[2017-02-26] MEDS: MIRTAZAPINE 15 MG TAB PO SCH (23:34)
--- NOTE | 2017-02-27 03:40 | HHI.PR ---
Addendum to Inpatient Note Addendum Reason: Additional Documentation Additional Information Subjective: Residents paged for Marisol at 0300 to assess patient for AMS. Nursing staff stated patient was in her normal state until she suddenly became unresponsive. Patient had not received pain/anxiety medications. Unable to state name, answer questions. Patient has known DVT in left leg. Objective: Vitals: HR: 90, BP: 170/90, Temp: 99.2 RR , O2 sat: 97% on room air CV: normal rate, regular rhythm. 2/6 systolic murmur appreciated at the lower left sternal border and apex. Resp: CTAB, no wheezes or crackles MSK: Back and buttocks examined with no ulcers appreciated. Left lower extremity swollen and warm to touch compared to the right. Neuro: Waxing and waning level of alertness. Residents were able to arouse patient for several seconds with sternal rub, but she quickly became unresponsive shortly after. Able to squeeze hand. Assessment/Plan Delirium with unknown etiology at this time Infectious vs electrolyte abnormality vs LA vs PE CBC, BMP, UA with culture, blood cultures, EKG, Troponin Currently on therapeutic Lovenox treatment for DVT Nursing staff instructed to inform primary team Seen and discussed with Satnam Hua MD R1 Feb 27, 2017 03:40
[2017-02-27 03:48] LABS: BLOOD, URINE NEG (NEG); GLUCOSE,URINE NEG (NEG); KETONE, URINE NEG (NEG); NITRITE,URINE NEG (NEG); PH, URINE 7.5 (5.0-8.5); URINE COLOR LIGHT-YELLOW (YELLW/STRAW)
[2017-02-27 03:50] LABS: COMMENT (UR) CATH-CULT NOT IND; CULTURE IF INDICATED CATH CULTURE NOT IND
[2017-02-27 04:18] LABS: AUTOMATED NEUTROPHIL # 3.9 TH/MM3 (1.8-7.7); BASOPHIL % 0.6 % (0.0-2.0); EOSINOPHIL # 0.2 TH/MM3 (0-0.4); EOSINOPHIL % 2.4 % (0.0-4.0); HEMATOCRIT 30.5 % (35.0-46.0); HEMO FLAGS DIFF FINAL; LYMPH % 27.5 % (9.0-44.0); LYMPHOCYTE # 1.9 TH/MM3 (1.0-4.8); MEAN CELL VOLUME 88.2 FL (80.0-100.0); MEAN CORPUSCULAR HEMOGLOBIN 28.8 PG (27.0-34.0); MEAN CORPUSCULAR HGB CONC 32.6 % (32.0-36.0); MONO % 12.4 % (0.0-8.0); NEUT % 57.1 % (16.0-70.0); PLATELET COUNT 279 TH/MM3 (150-450); RED BLOOD COUNT 3.46 MIL/MM3 (4.00-5.30); RED CELL DISTRIBUTION WIDTH 13.7 % (11.6-17.2); WHITE BLOOD COUNT 6.9 TH/MM3 (4.0-11.0)
[2017-02-27 04:38] LABS: ALT (GPT) 18 U/L (10-53); ANION GAP 6 MEQ/L (5-15); AST (GOT) 28 U/L (15-37); BICARBONATE 27.9 MEQ/L (21.0-32.0); BLOOD UREA NITROGEN 9 MG/DL (7-18); CHLORIDE 112 MEQ/L (98-107); GLOMERULAR FILTRATION RATE 131 ML/MIN (>89); POTASSIUM 3.5 MEQ/L (3.5-5.1); SODIUM (NA) 146 MEQ/L (136-145)
[2017-02-27 04:42] LABS: ALKALINE PHOSPHATASE 65 U/L (45-117); TOTAL BILIRUBIN ADULT 0.1 MG/DL (0.2-1.0)
[2017-02-27] MEDS: LEVOTHYROXINE SODIUM 25 MCG TAB PO SCH (06:00)
[2017-02-27 06:32] VITALS: BP 139/65; PULSE 78; RESP 16; TEMP 98.8; O2SAT 97
[2017-02-27] MEDS: SODIUM CHLOR 0.9% 1000 ML INJ 1,000 ML IV SCH ×2 (07:30→14:03)
[2017-02-27] MEDS: MEGESTROL ACETATE SUSP 400 MG/10 ML CUP PO SCH (09:00)
[2017-02-27] MEDS: POTASSIUM CHLORIDE 25 MEQ EFFERVESCENT TAB NG SCH (09:00)
[2017-02-27] MEDS: PRAVASTATIN SOD 40 MG TAB PO SCH (09:00)
[2017-02-27] MEDS: ENOXAPARIN SODIUM 60 MG/0.6 ML SYRINGE SQ SCH ×2 (09:31→21:54)
[2017-02-27] MEDS: 1/2 NS + KCL 20 MEQ INJ 1,000 ML IV SCH (10:00)
--- NOTE | 2017-02-27 11:17 | HHI.PYPN ---
Subjective Remarks Patient seen for follow, chart review. As per nursing report rapid response team was called less evening as patient was noted to be unresponsive but that she quickly was able to react. After evaluation today patient alert and oriented 3, she states that last evening she recalls when the rapid response seems was in her room stating that she heard every conversation that was happening around her but didn't have the energy to to talk or respond. She states that she continues to feel "the same" feeling depressed and hopeless. She reports that last evening she was visited by her boyfriend and her daughter which she enjoyed. Patient at this time is aware that she will be to improve her nutrition for her to start feeling physically better. Review of Systems Except as stated in HPI: all other systems reviewed are Neg Objective Alert: Yes [place]: Person, Place, Date (partial) Mood: Depressed Affect: Other (dysthymic) Memory Intact: Comment (Not formally tested) Hallucinations: Other (denies) Delusions: No Delusion Type: Other (denies) Suicidal: Ideation (continues to endorse) Homicidal: Ideation (denies) Insight/Judgment Fair insight, impulse control and judgment Labs Labs reviewed. Test 02/26/17 14:33 02/26/17 14:40 02/27/17 03:20 02/27/17 04:05 Blood Urea Nitrogen 9 MG/DL 9 MG/DL Creatinine 0.43 MG/DL 0.47 MG/DL Random Glucose 102 MG/DL 118 MG/DL Calcium Level 8.5 MG/DL 8.0 MG/DL Sodium Level 146 MEQ/L 146 MEQ/L Potassium Level 3.5 MEQ/L 3.5 MEQ/L Chloride Level 113 MEQ/L 112 MEQ/L Carbon Dioxide Level 27.1 MEQ/L 27.9 MEQ/L Anion Gap 6 MEQ/L 6 MEQ/L Estimat Glomerular Filtration Rate 145 ML/MIN 131 ML/MIN Stool C. difficile Toxin (PCR) NEGATIVE Stl C. difficile Toxin Epiderm 027 PRESUMPTIVE NEGATIVE Urine Color LIGHT-YELLOW Urine Turbidity CLEAR Urine pH 7.5 Urine Specific [place] 1.006 Urine Protein NEG mg/dL Urine Glucose (UA) NEG mg/dL Urine Ketones NEG mg/dL Urine Occult Blood NEG Urine Nitrite NEG Urine Bilirubin NEG Urine Urobilinogen LESS THAN 2.0 MG/DL Urine Leukocyte Esterase NEG Urine RBC 1 /hpf Urine WBC LESS THAN 1 /hpf Microscopic Urinalysis Comment CATH-CULT NOT IND White Blood Count 6.9 TH/MM3 Red Blood Count 3.46 MIL/MM3 Hemoglobin 9.9 GM/DL Hematocrit 30.5 % Mean Corpuscular Volume 88.2 FL Mean Corpuscular Hemoglobin 28.8 PG Mean Corpuscular Hemoglobin Concent 32.6 % Red Cell Distribution Width 13.7 % Platelet Count 279 TH/MM3 Mean Platelet Volume 8.5 FL Neutrophils (%) (Auto) 57.1 % Lymphocytes (%) (Auto) 27.5 % Monocytes (%) (Auto) 12.4 % Eosinophils (%) (Auto) 2.4 % Basophils (%) (Auto) 0.6 % Neutrophils # (Auto) 3.9 TH/MM3 Lymphocytes # (Auto) 1.9 TH/MM3 Monocytes # (Auto) 0.9 TH/MM3 Eosinophils # (Auto) 0.2 TH/MM3 Basophils # (Auto) 0.0 TH/MM3 CBC Comment DIFF FINAL Differential Comment Total Protein 5.4 GM/DL Albumin 2.2 GM/DL Alkaline Phosphatase 65 U/L Aspartate Amino Transf (AST/SGOT) 28 U/L Alanine Aminotransferase (ALT/SGPT) 18 U/L Total Bilirubin 0.1 MG/DL Lactic Acid Level 1.0 mmol/L Troponin I LESS THAN 0.02 NG/ML Date/Time Source Procedure Growth Status 02/27/17 04:05 Blood Peripheral Aerobic Blood Culture Pending Received 02/27/17 04:05 Blood Peripheral Anaerobic Blood Culture Pending Received Vitals/IOs Vital Signs Date Time Temp Pulse Resp B/P (MAP) Pulse Ox O2 Delivery O2 Flow Rate FiO2 02/27/17 06:32 98.8 78 16 139/65 (89) 97 Intake and Output 02/27/17 02/27/17 02/28/17 08:00 16:00 00:00 Intake Total 1140 ml 240 ml Balance 1140 ml 240 ml Assessment & Plan Problem List: (1) Bipolar disorder, curr episode depressed, severe, w/psychotic features ICD Codes: F31.5 - Bipolar disorder, current episode depressed, severe, with psychotic features Status: Acute Assessment & Plan Patient at this time continues to be noted to be very depressed, continued to endorse having hopelessness and thoughts of not wanting to be alive. As per last patient had a drop of hemoglobin which was discussed with the medical team which she will have guaiac ordered. Patient to continue current treatment, encouraged patient to continue to improve on by mouth intake. Possibility of having patient with PEG tube is currently being considered by the medical team due to patient's poor nutritional status at this time. Discussion of having patient transferred to the medical floor for further medical management was discussed with medical team today. We'll consider consulting palliative care if patient's current status continues to decline. Justification for Cont. Inpt. Risk for further decompensation if it lower level care Mitch Cruz MD Feb 27, 2017 11:17
--- NOTE | 2017-02-27 14:16 | EKG ---
Date Performed: 02/27/2017 Time Performed: 03:43:56 PTAGE: 71 years EKG: Sinus rhythm Normal ECG Compared to PREVIOUS TRACING , the diffuse nonspecific ST-T wave changes have resolved. PREVIOUS TRAC IN02/17/2017 11.09 DOCTOR: Martha Taylor Interpretating Date/Time 02/27/2017 14:15:25
--- NOTE | 2017-02-27 15:22 | HHI.PR ---
Subjective Remarks Deferred entry - patient seen earlier at 10 AM Rapid response called last night due to altered mental status Sodium noted to be slightly elevated Hemoglobin dropped from 12.1-9.9 The patient denies melena or hematochezia. Vital signs stable Patient states that she does not have appetite. Objective Vitals Vital Signs Date Time Temp Pulse Resp B/P (MAP) Pulse Ox O2 Delivery O2 Flow Rate FiO2 02/27/17 06:32 98.8 78 16 139/65 (89) 97 02/26/17 18:00 98.6 85 17 145/65 (91) 96 I/O 02/26/17 02/26/17 02/26/17 02/27/17 02/27/17 02/27/17 06:59 14:59 22:59 06:59 14:59 22:59 Intake Total 656 ml 720 ml 240 ml 240 ml 1440 ml Balance 656 ml 720 ml 240 ml 240 ml 1440 ml Intake Oral 16 ml 720 ml 240 ml 240 ml 240 ml Oral Supplement 60 ml IV Total 640 ml 1140 ml # Voids 2 7 3 # Bowel Movements 6 Result Diagram: 02/27/17 0405 02/27/17 0405 Imaging Last Impressions Lower Extremity Ultrasound 02/24/17 0000 Signed Impressions: Service Date/Time: Friday, February 24, 2017 17:44 - CONCLUSION: Extensive DVT on the left. Wanda Salazar MD Barium Swallow X-Ray 02/22/17 0000 Signed Impressions: Service Date/Time: February 13:59 - CONCLUSION: Negative limited study. The previously noted apparent leakage and extravasated contrast is no longer present. Matthieu Dumont MD Objective Remarks GENERAL: Very pleasant 71-year-old female, very skinny, in the chair appears in not acute distress. CARDIOVASCULAR: Regular rate and rhythm without murmurs, gallops, or rubs. RESPIRATORY: Breath sounds equal bilaterally. No accessory muscle use. GASTROINTESTINAL: Abdomen soft,mildly tender to palpation of hypogastrium. MUSCULOSKELETAL: No cyanosis, or edema. PSYCHIATRIC: Alert and oriented x 3, no overt signs of anxiety/depression. Pleasant and cooperative. Procedures EGD with esophageal dilation planned for Sunday (02/19/17). Medications and IVs Current Medications Medications (Trade) Dose Ordered Sig/Dasia Route Start Time Stop Time Status Last Admin (Tylenol) 650 mg Q4H PRN PO 02/15/17 18:15 02/18/17 08:34 (Milk Of Magnesia Liq) 30 ml DAILY PRN PO 02/15/17 18:15 Future hold 02/19/17 19:54 (Mag-Al Plus Susp Liq) 30 ml Q6H PRN PO 02/15/17 18:15 (LaMICtal) 150 mg HS PO 02/16/17 21:00 02/26/17 23:31 (Pravachol) 40 mg DAILY PO 02/17/17 09:00 02/26/17 08:48 (Pill Splitter) 1 ea UNSCH PRN OTHER 02/17/17 11:15 (Drisdol) 50,000 units Q7D PO 02/19/17 13:00 02/26/17 14:59 (Megace Liq) 400 mg DAILY PO 02/19/17 14:30 Future hold 02/27/17 09:00 Sodium Chloride 1,000 ml @ 80 mls/hr [id number] IV 02/20/17 13:00 02/27/17 07:30 (Dulcolax Supp) 10 mg DAILY PRN RECTAL 02/20/17 13:15 (Protonix Inj) 40 mg Q24H IV PUSH 02/20/17 16:00 02/26/17 14:59 (Remeron) 30 mg HS PO 02/22/17 21:00 02/26/17 23:34 (K-Lyte Cl Eff) 50 meq DAILY NG 02/24/17 10:00 02/26/17 08:48 (Synthroid) 25 mcg DAILY@0600 PO 02/25/17 06:00 02/26/17 06:27 (Lovenox Inj) 50 mg Q12H SQ 02/24/17 22:00 02/27/17 09:31 Potassium Chloride/Sodium Chloride 1,000 ml @ 84 mls/hr [id number] IV 02/27/17 10:00 02/27/17 10:00 A/P Problem List: (1) Weight loss ICD Code: R63.4 - Weight loss Status: Acute (2) Bipolar disorder, curr episode depressed, severe, w/psychotic features ICD Code: F31.5 - Bipolar disorder, current episode depressed, severe, with psychotic features Status: Acute (3) Dysphagia ICD Code: R13.10 - Dysphagia, unspecified Status: Acute (4) Hypothyroidism Status: Chronic (5) Esophageal perforation ICD Code: K22.3 - Perforation of esophagus Status: Acute Assessment and Plan Ms. Martins denied having any medical history. However, per the medical record she is reported to have history of bipolar disease, cardiovascular disease, congestive heart failure, and hypothyroidism. Ms. Martins did not provide much information about herself, with many answers being "I don't know." As such, history is obtained from the medical record. Ms. Martins was brought to [facility] by family on 02/14/17 for worsening depression. It is reported she has had decreased food and fluid intake for several weeks. Medical record cites pt's daughter as this being "the worst depression." Pt is reported to take food into her mouth but not swallow. Dr. Cruz has consulted the Hospitalist team to provide medical management. Major Depressive Episode -Treatment per psychiatry Anorexia Dysphagia Esophageal perforation Severe protein calorie malnutrition. 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 GI consulted, EGD with esophageal dilation planned for 02/19 Speech language pathologist reported reviewed, negative findings. Patient is being followed by dietitian who recommended Ensure and left 3 times a day and patient started on Megace. The patient status post EGD with dilation on 02/20 after which the patient showed signs of esophageal perforation on barium swallow. Patient was started on IV ciprofloxacin and IV Flagyl empirically which was later discontinued. CT surgery consulted who recommended conservative management keeping the patient nothing by mouth. Repeat barium swallow on 02/24 showed that the noted apparent leakage and extravasated contrast was no longer present. The patient was started on heart healthy diet. GI signed off on 02/25. 02/27 calorie count results show that patient is having inadequate by mouth intake to keep adequate nutrition. I will discuss with the patient regarding PEG tube placement. Will order CT Chest abdomen and Pelvis for anorexia, weight loss and failure to thrive. Hypothyroidism Home regimen Levothyroxine 0.88 mcg/day TSH level 0.222, decreased levothyroxine to 50 mcg po daily Continue Levothyroxine. Hyperlipidemia -continue statin. Diarrhea Diarrhea has resolved. C. difficile negative. DVT Patient with lower extremity swelling and dopler of LLE shows extensive DVT. Patient started on Lovenox SQ at therapeutic dose for DVT. Will transition to an oral agent once a definitive plan about PEG tube is made. Altered mental status Now resolved. Offered CT scan of brain to patient but she refused. Hypernatremia Sodium stable at 146, patient with poor oral intake start on 1/2 ns and monitor BMP. Discharge Planning Patient may be transferred to the medical unit. Collins Ortega MD Feb 27, 2017 15:22
[2017-02-27] MEDS: PANTOPRAZOLE SODIUM 40 MG VIAL IV PUSH SCH (16:00)
[2017-02-27 18:00] VITALS: BP 138/61; PULSE 81; RESP 16; TEMP 98.4; O2SAT 95
[2017-02-27] MEDS: MIRTAZAPINE 15 MG TAB PO SCH (21:51)
[2017-02-27] MEDS: lamoTRIgine 100 MG TAB PO SCH (21:52)
[2017-02-28] MEDS: 1/2 NS + KCL 20 MEQ INJ 1,000 ML IV SCH ×2 (02:33→09:50)
[2017-02-28 06:06] VITALS: BP 144/58; PULSE 80; RESP 16; TEMP 97.5; O2SAT 98
[2017-02-28] MEDS: LEVOTHYROXINE SODIUM 25 MCG TAB PO SCH (06:44)
[2017-02-28] MEDS: SODIUM CHLOR 0.9% 1000 ML INJ 1,000 ML IV SCH (08:30)
[2017-02-28] MEDS: ENOXAPARIN SODIUM 60 MG/0.6 ML SYRINGE SQ SCH ×2 (08:58→21:34)
[2017-02-28] MEDS: PRAVASTATIN SOD 40 MG TAB PO SCH (08:58)
[2017-02-28] MEDS: MEGESTROL ACETATE SUSP 400 MG/10 ML CUP PO SCH (08:58)
[2017-02-28] MEDS: POTASSIUM CHLORIDE 25 MEQ EFFERVESCENT TAB NG SCH (08:58)
--- NOTE | 2017-02-28 09:37 | HHI.PR ---
Subjective Remarks The patient was resting in bed. She said she is very depressed. She says everything, as in her whole body, hurts when she eats. She has no interest in eating. She says she has been constipated. Objective Vitals Vital Signs Date Time Temp Pulse Resp B/P (MAP) Pulse Ox O2 Delivery O2 Flow Rate FiO2 02/28/17 06:06 97.5 80 16 144/58 (86) 98 02/27/17 18:00 98.4 81 16 138/61 (86) 95 I/O 02/27/17 02/27/17 02/27/17 02/28/17 02/28/17 02/28/17 07:00 15:00 23:00 07:00 15:00 23:00 Intake Total 240 ml 1440 ml 120 ml 2009 ml 240 ml Balance 240 ml 1440 ml 120 ml 2009 ml 240 ml Intake Oral 240 ml 240 ml 120 ml 120 ml 240 ml Oral Supplement 60 ml IV Total 1140 ml 1889 ml # Voids 3 2 5 # Bowel Movements 1 Result Diagram: 02/27/17 0405 02/27/17 0405 Imaging Last Impressions Lower Extremity Ultrasound 02/24/17 0000 Signed Impressions: Service Date/Time: Friday, February 24, 2017 17:44 - CONCLUSION: Extensive DVT on the left. K. Mello Salazar MD Barium Swallow X-Ray 02/22/17 0000 Signed Impressions: Service Date/Time: February 13:59 - CONCLUSION: Negative limited study. The previously noted apparent leakage and extravasated contrast is no longer present. Matthieu Dumont MD Objective Remarks GENERAL: Resting comfortably. HEENT: NC, AT. CARDIOVASCULAR: Regular rate and rhythm without murmurs, gallops, or rubs. RESPIRATORY: Breath sounds equal bilaterally. No accessory muscle use. GASTROINTESTINAL: Abdomen soft, nontender to palpation. MUSCULOSKELETAL: No cyanosis, or edema. NEURO: Alert and oriented x 3. No gross deficits. PSYCH: Flattened affect. Medications and IVs Current Medications Medications (Trade) Dose Ordered Sig/Dasia Route Start Time Stop Time Status Last Admin (Tylenol) 650 mg Q4H PRN PO 02/15/17 18:15 02/18/17 08:34 (Milk Of Magnesia Liq) 30 ml DAILY PRN PO 02/15/17 18:15 Future hold 02/19/17 19:54 (Mag-Al Plus Susp Liq) 30 ml Q6H PRN PO 02/15/17 18:15 (LaMICtal) 150 mg HS PO 02/16/17 21:00 02/27/17 21:52 (Pravachol) 40 mg DAILY PO 02/17/17 09:00 02/28/17 08:58 (Pill Splitter) 1 ea UNSCH PRN OTHER 02/17/17 11:15 (Drisdol) 50,000 units Q7D PO 02/19/17 13:00 02/26/17 14:59 (Megace Liq) 400 mg DAILY PO 02/19/17 14:30 Future hold 02/28/17 08:58 Sodium Chloride 1,000 ml @ 80 mls/hr [id number] IV 02/20/17 13:00 02/27/17 07:30 (Dulcolax Supp) 10 mg DAILY PRN RECTAL 02/20/17 13:15 (Protonix Inj) 40 mg Q24H IV PUSH 02/20/17 16:00 02/27/17 16:00 (Remeron) 30 mg HS PO 02/22/17 21:00 02/27/17 21:51 (K-Lyte Cl Eff) 50 meq DAILY NG 02/24/17 10:00 02/28/17 08:58 (Synthroid) 25 mcg DAILY@0600 PO 02/25/17 06:00 02/28/17 06:44 (Lovenox Inj) 50 mg Q12H SQ 02/24/17 22:00 02/28/17 08:58 Potassium Chloride/Sodium Chloride 1,000 ml @ 84 mls/hr [id number] IV 02/27/17 10:00 02/28/17 02:33 A/P Problem List: (1) Weight loss ICD Code: R63.4 - Weight loss Status: Acute (2) Bipolar disorder, curr episode depressed, severe, w/psychotic features ICD Code: F31.5 - Bipolar disorder, current episode depressed, severe, with psychotic features Status: Acute (3) Dysphagia ICD Code: R13.10 - Dysphagia, unspecified Status: Acute (4) Hypothyroidism Status: Chronic (5) Esophageal perforation ICD Code: K22.3 - Perforation of esophagus Status: Acute Assessment and Plan Major Depressive Episode -Treatment per psychiatry Anorexia Dysphagia Esophageal perforation Severe protein calorie malnutrition. 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 GI consulted. Speech language pathologist report reviewed, negative findings. Patient is being followed by dietitian who recommended Ensure and patient started on Megace. The patient is status post EGD with dilation on 02/20 after which the patient showed signs of esophageal perforation on barium swallow. Patient was started on IV ciprofloxacin and IV Flagyl empirically which was later discontinued. CT surgery consulted who recommended conservative management keeping the patient nothing by mouth. Repeat barium swallow on 02/24 showed that the noted apparent leakage and extravasated contrast was no longer present. The patient was started on a diet. GI signed off. 02/27 calorie count results show that patient is having inadequate by mouth intake to keep adequate nutrition. - The pt is open to considering PEG tube placement if needed. Reconsult GI if needed. - Add Ensure TID with meals. - follow up with speech and dietary. Hypothyroidism Home regimen Levothyroxine 0.88 mcg/day TSH level 0.222. - decreased levothyroxine to 50 mcg po daily. Diarrhea Diarrhea has resolved. C. difficile negative. - resume bowel regimen. DVT Patient with lower extremity swelling and Doppler of LLE shows extensive DVT. Patient started on Lovenox SQ at therapeutic dose for DVT. - Will transition to an oral agent once a definitive plan about PEG tube is made. Hypernatremia Sodium stable at 146, patient with poor oral intake. - started on 1/2 NS. - monitor BMP. Matthieu Hernandez DO Feb 28, 2017 09:36
[2017-02-28] MEDS ORDERED: POLYETHYLENE GLYCOL 17 GM PKG PO SCH (11:00)
--- NOTE | 2017-02-28 12:41 | HHI.PYPN ---
Subjective Remarks Patient seen for follow, chart reviewed. As discussion with nursing staff patient had stated that she wanted to go home with the family in eaten a little bit but continues to be noted to be depressed and hopeless. Patient found lying in hospital bed noted to be tearful states feeling "same" patient continues to be noted to be depressed stating "what's the use". Patient reports having visited by her boyfriend and daughter earlier today which she stated was happy about. Patient was encouraged to continue to improve her oral intake was she just nods. Patient continues to have some thoughts of not wanting to live but denies any HI, AVH or delusions. Review of Systems Except as stated in HPI: all other systems reviewed are Neg Objective Alert: Yes [place]: Person, Place, Date (partial) Mood: Depressed Affect: Other (dysthymic) Memory Intact: Comment (Not formally tested) Hallucinations: Other (denies) Delusions: No Delusion Type: Other (denies) Suicidal: Ideation (continues to endorse) Homicidal: Ideation (denies) Insight/Judgment Fair insight, impulse control, poor judgment Labs Labs reviewed Date/Time Source Procedure Growth Status 02/27/17 04:05 Blood Peripheral Aerobic Blood Culture - Preliminary NO GROWTH IN 1 DAY Resulted 02/27/17 04:05 Blood Peripheral Anaerobic Blood Culture - Preliminary NO GROWTH IN 1 DAY Resulted Vitals/IOs Vital Signs Date Time Temp Pulse Resp B/P (MAP) Pulse Ox O2 Delivery O2 Flow Rate FiO2 02/28/17 06:06 97.5 80 16 144/58 (86) 98 Intake and Output 02/28/17 02/28/17 03/01/17 08:00 16:00 00:00 Intake Total 2008 ml 240 ml Balance 2008 ml 240 ml Assessment & Plan Problem List: (1) Bipolar disorder, curr episode depressed, severe, w/psychotic features ICD Codes: F31.5 - Bipolar disorder, current episode depressed, severe, with psychotic features Status: Acute Assessment & Plan Patient at this time continues to endorse feeling depressed along with suicidal ideations. Patient continues to have very poor oral intake currently being managed by medical team which possibility of PEG tube is being considered. Supportive psychotherapy provided. We'll increase mirtazapine to 45 mg by mouth at bedtime for depressive symptoms continue Lamictal at current dose. Due to the patient's severity of depressive state will consider ECT if patient does not show improvement. Recommendations as per primary medical team. As discussion with hospitalist Dr. Mishra yesterday patient may be transferred to the medical floor for further medical management. Discharge planning in progress Justification for Cont. Inpt. Patient at risk for further decompensation if at a lower level of care Mitch Cruz MD Feb 28, 2017 12:40
[2017-02-28] MEDS: PANTOPRAZOLE SODIUM 40 MG VIAL IV PUSH SCH (16:13)
[2017-02-28 16:30] LABS: HEMATOCRIT 31.6 % (35.0-46.0); MEAN CELL VOLUME 88.7 FL (80.0-100.0); MEAN CORPUSCULAR HEMOGLOBIN 28.3 PG (27.0-34.0); MEAN CORPUSCULAR HGB CONC 31.9 % (32.0-36.0); PLATELET COUNT 327 TH/MM3 (150-450); RED BLOOD COUNT 3.56 MIL/MM3 (4.00-5.30); REVIEW FLAG FINAL; WHITE BLOOD COUNT 7.3 TH/MM3 (4.0-11.0)
[2017-02-28 17:00] LABS: BICARBONATE 26.8 MEQ/L (21.0-32.0)
[2017-02-28 17:02] LABS: TRANSFERRIN IRON PROFILE 170 MG/DL (200-360)
[2017-02-28 17:16] LABS: FERRITIN 184 NG/ML (8-252)
[2017-02-28 18:44] VITALS: BP 133/62; PULSE 79; RESP 16; TEMP 98.1; O2SAT 97
[2017-02-28] MEDS ORDERED: MIRTAZAPINE 15 MG TAB PO SCH (21:00)
[2017-02-28] MEDS: lamoTRIgine 100 MG TAB PO SCH (21:34)
[2017-02-28] MEDS ORDERED: OLANZapine 2.5 MG TAB PO SCH (21:50)
[2017-03-01] MEDS: 1/2 NS + KCL 20 MEQ INJ 1,000 ML IV SCH (02:34)
[2017-03-01 05:45] LABS: MEAN CELL VOLUME 88.1 FL (80.0-100.0); MEAN CORPUSCULAR HEMOGLOBIN 28.7 PG (27.0-34.0); MEAN CORPUSCULAR HGB CONC 32.5 % (32.0-36.0); PLATELET COUNT 345 TH/MM3 (150-450); RED BLOOD COUNT 3.63 MIL/MM3 (4.00-5.30); RED CELL DISTRIBUTION WIDTH 13.7 % (11.6-17.2); REVIEW FLAG FINAL; WHITE BLOOD COUNT 8.1 TH/MM3 (4.0-11.0)
[2017-03-01] MEDS: LEVOTHYROXINE SODIUM 25 MCG TAB PO SCH (05:51)
[2017-03-01 06:00] VITALS: BP 143/60; PULSE 82; RESP 16; TEMP 97.7; O2SAT 96
[2017-03-01 06:16] LABS: BICARBONATE 26.9 MEQ/L (21.0-32.0); MAGNESIUM 2.2 MG/DL (1.5-2.5); POTASSIUM 4.5 MEQ/L (3.5-5.1)
[2017-03-01] MEDS: POTASSIUM CHLORIDE 25 MEQ EFFERVESCENT TAB NG SCH (09:00)
[2017-03-01] MEDS: MEGESTROL ACETATE SUSP 400 MG/10 ML CUP PO SCH (09:00)
[2017-03-01] MEDS: PRAVASTATIN SOD 40 MG TAB PO SCH (09:00)
--- NOTE | 2017-03-01 09:58 | HHI.PR ---
Subjective Remarks The patient was minimally verbal this morning. She indicated no acute complaints. She said she has not been eating. She was lethargic. Objective Vitals Vital Signs Date Time Temp Pulse Resp B/P (MAP) Pulse Ox O2 Delivery O2 Flow Rate FiO2 03/01/17 06:00 97.7 82 16 143/60 (87) 96 02/28/17 18:44 98.1 79 16 133/62 (85) 97 I/O 02/28/17 02/28/17 02/28/17 03/01/17 03/01/17 03/01/17 07:00 15:00 23:00 07:00 15:00 23:00 Intake Total 2009 ml 720 ml 1085 ml 1886 ml Balance 2009 ml 720 ml 1085 ml 1886 ml Intake Oral 120 ml 720 ml 75 ml 0 ml IV Total 1889 ml 1010 ml 1886 ml # Voids 5 0 3 # Bowel Movements 0 Result Diagram: 03/01/17 0524 03/01/17 0524 Imaging Last Impressions Lower Extremity Ultrasound 02/24/17 0000 Signed Impressions: Service Date/Time: Friday, February 24, 2017 17:44 - CONCLUSION: Extensive DVT on the left. KTia Salazar MD Barium Swallow X-Ray 02/22/17 0000 Signed Impressions: Service Date/Time: February 13:59 - CONCLUSION: Negative limited study. The previously noted apparent leakage and extravasated contrast is no longer present. Matthieu Dumont MD Objective Remarks GENERAL: Resting comfortably. HEENT: NC, AT. CARDIOVASCULAR: Regular rate and rhythm without murmurs, gallops, or rubs. RESPIRATORY: Breath sounds equal bilaterally. No accessory muscle use. GASTROINTESTINAL: Abdomen soft, nontender to palpation. MUSCULOSKELETAL: No cyanosis, or edema. NEURO: Lethargic. No gross deficits. PSYCH: Flattened affect. Medications and IVs Current Medications Medications (Trade) Dose Ordered Sig/Dasia Route Start Time Stop Time Status Last Admin (Tylenol) 650 mg Q4H PRN PO 02/15/17 18:15 02/18/17 08:34 (Milk Of Magnesia Liq) 30 ml DAILY PRN PO 02/15/17 18:15 Future hold 02/19/17 19:54 (Mag-Al Plus Susp Liq) 30 ml Q6H PRN PO 02/15/17 18:15 (LaMICtal) 150 mg HS PO 02/16/17 21:00 02/28/17 21:34 (Pravachol) 40 mg DAILY PO 02/17/17 09:00 02/28/17 08:58 (Pill Splitter) 1 ea UNSCH PRN OTHER 02/17/17 11:15 (Drisdol) 50,000 units Q7D PO 02/19/17 13:00 02/26/17 14:59 (Megace Liq) 400 mg DAILY PO 02/19/17 14:30 Future hold 02/28/17 08:58 Sodium Chloride 1,000 ml @ 80 mls/hr [id number] IV 02/20/17 13:00 02/27/17 07:30 (Dulcolax Supp) 10 mg DAILY PRN RECTAL 02/20/17 13:15 (Protonix Inj) 40 mg Q24H IV PUSH 02/20/17 16:00 02/28/17 16:13 (K-Lyte Cl Eff) 50 meq DAILY NG 02/24/17 10:00 02/28/17 08:58 (Synthroid) 25 mcg DAILY@0600 PO 02/25/17 06:00 02/28/17 06:44 (Lovenox Inj) 50 mg Q12H SQ 02/24/17 22:00 02/28/17 08:58 Potassium Chloride/Sodium Chloride 1,000 ml @ 84 mls/hr [id number] IV 02/27/17 10:00 03/01/17 02:34 (ZyPREXA) 2.5 mg HS PO 02/28/17 21:50 A/P Problem List: (1) Weight loss ICD Code: R63.4 - Weight loss Status: Acute (2) Bipolar disorder, curr episode depressed, severe, w/psychotic features ICD Code: F31.5 - Bipolar disorder, current episode depressed, severe, with psychotic features Status: Acute (3) Dysphagia ICD Code: R13.10 - Dysphagia, unspecified Status: Acute (4) Hypothyroidism Status: Chronic (5) Esophageal perforation ICD Code: K22.3 - Perforation of esophagus Status: Acute Assessment and Plan Major depressive disorder The pt is withdrawn. - Treatment per psychiatry. - check TSH, free T4, T3, ammonia level. - neuro checks. Anorexia/ Dysphagia/ Esophageal perforation/ Severe protein calorie malnutrition. 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 GI consulted for dysphagia. The patient is status post EGD with dilation on 02/20 after which the patient showed signs of esophageal perforation on barium swallow. Patient was started on IV ciprofloxacin and IV Flagyl empirically which was later discontinued. CT surgery consulted who recommended conservative management keeping the patient nothing by mouth. Repeat barium swallow on 02/24 showed that the noted apparent leakage and extravasated contrast was no longer present. The patient was started on a diet. GI signed off. 02/27 calorie count results show that patient is having inadequate by mouth intake to keep adequate nutrition. - The pt is open to considering PEG tube placement. Reconsult GI if needed. - Add Ensure TID with meals. - follow up with speech therapy and dietary. - Megace. - check glucose level BID. Hypothyroidism Home regimen Levothyroxine 0.88 mcg/day TSH level 0.222. - decreased levothyroxine to 50 mcg po daily. - repeat TSH. Check T3, free T4. Diarrhea Diarrhea has resolved. C. difficile negative. - resume bowel regimen. DVT Patient with lower extremity swelling and Doppler of LLE shows extensive DVT. Patient started on Lovenox SQ at therapeutic dose for DVT. - Will transition to an oral agent once a definitive plan about PEG tube is made. Hypernatremia Improved with 1/2 normal saline. - change fluids to D5 1/2 NS. - monitor BMP. Anemia Iron studies noted. - check Hemoccult. PPx: Lovenox Matthieu Hernandez DO Mar 01, 2017 09:58
[2017-03-01] MEDS: ENOXAPARIN SODIUM 60 MG/0.6 ML SYRINGE SQ SCH (10:00)
[2017-03-01] MEDS ORDERED: DEXT 5%-NACL 0.45% 1000 ML INJ 1,000 ML IV SCH (10:00)
--- NOTE | 2017-03-01 15:20 | HHI.DS ---
Psychiatry Discharge Summary Inpatient Psychiatric care?: Yes Advance Directive: No Reason Not Provided: doesnt have one Mental Health AdvanceDirective: No Health Care Proxy: No Admission Admission Date Feb 15, 2017 at 18:15 Admission Diagnosis: (1) Bipolar disorder, current episode depressed, severe, without psychotic features ICD Code: F31.4 - Bipolar disorder, current episode depressed, severe, without psychotic features Brief History Patient is a 71-year-old woman, , currently living with her boyfriend is 27 years, past psychiatric history of bipolar disorder, with multiple hospitalizations, no prior suicide attempts, with past medical history of cardio vascular disease, CHF and hypothyroidism was brought to the hospital by family on 02/14/17 for worsening depression and decrease food fluid intake for several weeks and was admitted to the medical/psychiatric unit for further evaluation and management. As per ED note patient had endorsed feeling depressed with decreased appetite and energy, feeling anhedonic, increased sleep. Stressors include boyfriend recently diagnosed with lung cancer, recent change in outpatient psychiatrist, and recent change in medications along with recent passing of her pet. Patient was found lying in hospital bed watching television but was able to engage in interview with specification writer. After discussion with nursing patient noted to refuse to eat and drink. Patient was unable to state why she has been brought to the hospital. She states that she has difficulty swallowing for a long time by her daughter because it was time to get better. Patient reports for the past couple weeks she having decreased sleep, energy and concentration, appetite with mood being bad but cannot recall reasons why. Patient states that she has been feeling depressed all the time, its the way I am. Patient also reports having had suicidal ideations all the time but is unable to have elaborate why. Patient states that her reason to live are to be happy, her family and her maximus. Patient also reports that she has been becoming more and more forgetful. Patient reports hearing noises and sometimes seeing things but was unable to elaborate on either. Patient reports feeling paranoid of everybody but did not elaborate. Patient is a poor historian with limited engagement in interview today. Patient is time states feeling okay, continues to endorse suicidal ideations, denies homicidal ideations, perceptual disturbances endorses paranoid ideations. Patient is alert and oriented to person and place only. Mini-Mental exam was attempted but the patient was unable to fully participate at this time. Collateral contact Ofe Martins (daughter) - no number provided. Past psychiatric history: Previous psychiatric diagnoses of bipolar disorder, multiple hospitalizations, no previous suicide attempts. Unable to recall current medication regimen, recent change in outpatient provider (Dr. Barragan) recent visit which medications were changed. Family history: Unable to assess as patient was not able to recall. Substance use history: Patient previous tobacco use states having quit years ago , no alcohol or use illegal substance use. Past medical history patient unable to recall medical issues but as per chart with cardio vascular disease, congestive heart failure, hypothyroidism. Allergies: Patient unable to recall as per chart penicillin and contrast medium Social history, , lives with boyfriend (Robin), for the past 27 years. Tobacco Use In Past 30 Days: No Tobacco Past 30 Days Alcohol Use: Monthly or Less Hospital Course Patient is a 71-year-old woman, , currently living with her boyfriend is 27 years, past psychiatric history of bipolar disorder, with multiple hospitalizations, no prior suicide attempts, with past medical history of cardio vascular disease, CHF and hypothyroidism was brought to the hospital by family on 02/14/17 for worsening depression and decrease food fluid intake for several weeks and was admitted to the medical/psychiatric unit for further evaluation and management. Patient was continued on Lamictal 150mg PO daily and Mirtazapine 7.5mg PO HS for depression. Patient had complained of difficulty swallowing which medical team had GI consult that recommended EGD. EGD was performed with subsequent barium swallow which showed esophageal tears but was managed conservatively. Repeat barium swallow did not show tears and patient was cleared to resume intake by mouth. Patient noted to continue to have difficulty with intake despite encouragement from staff and family. Patient had Mirtazapine titrated to 45mg PO HS with poor response which she was then switched to olanzapine 2.5 mg PO HS. Patient continued to have significant depressive symptoms along with thoughts of not wanting to live and began to refuse medications and meals. It has been noted that the patient does better with the visits and encouragement by family. Treatment team decided that moving the patient to the medical floor would allow family to visit more consistently as well as continue medical management for failure to thrive. The possibility of NG tube vs. PEG tube is being explored with patient and family. Patient discharged for transfer to medical floor where psychiatry service will continue to follow for current depression. Process for possible ECT referral started. Results Blood Pressure 143 / 60 Vital Signs Date Time Temp Pulse Resp B/P (MAP) Pulse Ox O2 Delivery O2 Flow Rate FiO2 03/01/17 06:00 97.7 82 16 143/60 (87) 96 Laboratory Tests Test 02/27/17 03:20 02/27/17 04:05 02/28/17 15:58 03/01/17 05:24 Red Blood Count 3.46 MIL/MM3 (4.00-5.30) 3.56 MIL/MM3 (4.00-5.30) 3.63 MIL/MM3 (4.00-5.30) Hemoglobin 9.9 GM/DL (11.6-15.3) 10.1 GM/DL (11.6-15.3) 10.4 GM/DL (11.6-15.3) Hematocrit 30.5 % (35.0-46.0) 31.6 % (35.0-46.0) 32.0 % (35.0-46.0) Monocytes (%) (Auto) 12.4 % (0.0-8.0) Creatinine 0.47 MG/DL (0.50-1.00) 0.47 MG/DL (0.50-1.00) Random Glucose 118 MG/DL (74-106) 73 MG/DL (74-106) Total Protein 5.4 GM/DL (6.4-8.2) Albumin 2.2 GM/DL (3.4-5.0) 2.4 GM/DL (3.4-5.0) Calcium Level 8.0 MG/DL (8.5-10.1) 8.4 MG/DL (8.5-10.1) Total Bilirubin 0.1 MG/DL (0.2-1.0) Sodium Level 146 MEQ/L (136-145) Chloride Level 112 MEQ/L (98-107) 110 MEQ/L (98-107) 108 MEQ/L (98-107) Troponin I LESS THAN 0.02 NG/ML Mean Corpuscular Hemoglobin Concent 31.9 % (32.0-36.0) Iron Level 39 MCG/DL (50-170) Total Iron Binding Capacity 238 MCG/DL (250-450) Percent Iron Saturation 16.4 % (20-50) Folate 18.1 NG/ML (3.1-17.5) Blood Urea Nitrogen 6 MG/DL (7-18) Laboratory Results Test 02/16/17 10:07 Cholesterol Level 182 MG/DL (120-200) HDL Cholesterol 82.9 MG/DL (40.0-60.0) Hemoglobin A1c 5.3 % (4.3-6.0) LDL Cholesterol 75 MG/DL (0-99) Triglycerides Level 122 MG/DL (42-150) Summary of Procedures EGD, Barium swallow Imaging Last Impressions Lower Extremity Ultrasound 02/24/17 0000 Signed Impressions: Service Date/Time: Friday, February 24, 2017 17:44 - CONCLUSION: Extensive DVT on the left. Wanda Salazar MD Barium Swallow X-Ray 02/22/17 0000 Signed Impressions: Service Date/Time: February 13:59 - CONCLUSION: Negative limited study. The previously noted apparent leakage and extravasated contrast is no longer present. Matthieu Dumont MD Pending results at discharge: No Medications # of Antipsychotic meds at D/C: 1 Approp Antipsych med options 1 - Minimum of three failed multiple trials of monotherapy. 2 - Documented plan to taper to monotherapy due to previous use of multiple meds OR cross-taper in progress at D/C. 3 - Documentation of augmentation of Clozapine. 4 - Justification other than those listed in allowable values 1-3, document here : Discharge Discharge Date: Mar 01, 2017 Discharge Diagnosis: (1) Bipolar disorder, curr episode depressed, severe, w/psychotic features Diagnosis: Principal ICD Code: F31.5 - Bipolar disorder, current episode depressed, severe, with psychotic features Status: Acute Mental Status Exam at Disch Appearance/Behavior: appears staged age, malnourished, in hospital gown, lying on hospital bed, fair eye contact, fair hygiene and grooming, Speech: normal rate, low tone and volume Mood: "the same...depressed" Affect: dysthymic TP: linear, organized TC: endorses thoughts of not wanting to be alive, denies HI, AVH or delusions Insight: fair, Impulse control fair, poor judgement Pt Condition on Discharge: Stable Discharge Disposition: Discharge Home Discharge Instructions Diet Instructions: Soft Diet Activities you can perform: Regular-No Restrictions Discharge Time > 30 minutes Discharge/Advance Care Plan Health Problems: (1) Bipolar disorder, curr episode depressed, severe, w/psychotic features Goals to promote your health * To prevent worsening of your condition and complications * To maintain your health at the optimal level Directions to meet your goals Take your medications as prescribed Follow your dietary instruction Follow activity as directed Keep your appointments as scheduled Take your immunizations and boosters as scheduled If your symptoms worsen call your PCP, if no PCP go to Urgent Care Center or Emergency Room For 29/01 questions related to your inpatient stay or results of tests pending at discharge, please contact Dr. Mitch Cruz at Smoking is Dangerous to Your Health. Avoid second hand smoking Mitch Cruz MD Mar 01, 2017 15:20
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
[2017-03-01 16:06] LABS: FREE T4 0.7 NG/DL (0.76-1.46)
[2017-03-01] MEDS: PANTOPRAZOLE SODIUM 40 MG VIAL IV PUSH SCH (16:28)
--- NOTE | 2017-03-01 16:32 | HHI.GIFU ---
Subjective Remarks Pt laying in bed. d/w her PEG tube placement and she is agreeable. Says she can't swallow b/c "it hurts all over." (Meri Melendez) Objective Vitals I&O Vital Signs Date Time Temp Pulse Resp B/P (MAP) Pulse Ox O2 Delivery O2 Flow Rate FiO2 03/01/17 06:00 97.7 82 16 143/60 (87) 96 02/28/17 18:44 98.1 79 16 133/62 (85) 97 I/O 02/28/17 02/28/17 02/28/17 03/01/17 03/01/17 03/01/17 07:00 15:00 23:00 07:00 15:00 23:00 Intake Total 2009 ml 720 ml 1085 ml 1886 ml 100 ml Balance 2008 ml 720 ml 1085 ml 1886 ml 100 ml Intake Oral 120 ml 720 ml 75 ml 0 ml 100 ml IV Total 1889 ml 1010 ml 1886 ml # Voids 5 0 3 # Bowel Movements 0 Laboratory Laboratory Tests Test 03/01/17 05:24 03/01/17 15:23 White Blood Count 8.1 Red Blood Count 3.63 Hemoglobin 10.4 Hematocrit 32.0 Mean Corpuscular Volume 88.1 Mean Corpuscular Hemoglobin 28.7 Mean Corpuscular Hemoglobin Concent 32.5 Red Cell Distribution Width 13.7 Platelet Count 345 Mean Platelet Volume 8.7 Blood Urea Nitrogen 6 Creatinine 0.51 Random Glucose 84 Calcium Level 8.9 Magnesium Level 2.2 Sodium Level 140 Potassium Level 4.5 Chloride Level 108 Carbon Dioxide Level 26.9 Anion Gap 5 Estimat Glomerular Filtration Rate 119 Albumin 2.4 Prealbumin 21 Ammonia 14 Free Thyroxine 0.70 Total Triiodothyronine 46 Thyroid Stimulating Hormone 3rd Gen 8.570 Date/Time Source Procedure Growth Status 02/27/17 04:05 Blood Peripheral Aerobic Blood Culture - Preliminary NO GROWTH IN 2 DAYS Resulted 02/27/17 04:05 Blood Peripheral Anaerobic Blood Culture - Preliminary NO GROWTH IN 2 DAYS Resulted Physical Exam HEENT: Normocephalic; atraumatic; no jaundice. CHEST: CTA CARDIAC: RRR ABDOMEN: Soft, mildly distended, nontender; no hepatosplenomegaly; bowel sounds are present EXTREMITIES: No clubbing, cyanosis, or edema. SKIN: Normal; no rash; no jaundice. ENERGY TRADING ANALYST: Alert (Meri Melendez) Assessment and Plan Plan ASSESSMENT - Dysphagia, poor PO intake, has responded to esophageal dilatation in past. S/ P EGD with dilatation and random biopsies (02/19/17)----> Normal EGD, S/P random biopsies. There was no obvious etiology for her symptoms on EGD and therefore Barium Swallow was ordered. Barium Swallow X-Ray (02/20/17)----> Small amounts of extraluminal contrast seen around the distal esophagus and medial stomach. I came to see patient, but she had already had her lunch. She reports that she is not able to swallow, but the nurses report that she has been tolerating her diet. Clinically, she is not in any distress- afebrile, no n/v/pain/odynophagia. She does c/o not being able to swallow and states "that will never change." WBC was unremarkable. NPO. IVF. S/P CVT evaluation. Rpt. Barium Swallow X-Ray (02/22/17)----> Negative limited study. The previously noted apparent leakage and extravasated contrast is no longer present. Cipro/flagyl per medical. States she still has difficulty swallowing and is not eating much. She states that she only had ice cream breakfast. Encourage po intake. Add ensure. GI reconsulted for PEG tube placement. Pt expressed interest and is agreeable. Per psych she is capacitated to make medical decisions. Palliative care now following. - Constipation. Dulcolax suppository was ordered, but not given to patient. (+) - Bipolar disorder with depressive sx, per attending PLAN - PEG tube placement - obtain consent - NPO after midnight - hold lovenox - iv levaquin administrative assistant front desk; pt allergic to PCN - Supportive care - Further recommendations to follow based on results of above - Patient seen and examined by Dr. Palumbo and myself and this note is written on his behalf (Meri Melendez) Physician Comments Seen and examined, will schedule PEG placement after obtaining consent. (Rose Jorgensen MD) Meri Melendez Mar 01, 2017 16:32 Rose Jorgensen MD Mar 02, 2017 06:32
[2017-03-01] MEDS ORDERED: LEVOFLOXACIN 500 MG PREMIX INJ 100 ML IV ONE (16:45)
== END 2017-03-01 18:26 | disposition still patient (30) | DRG 885 ==
LOC: NEPD 13:52 → NEDA 18:15 → H4EA 20:35 → N05A 03-01 17:56
PROVIDERS: ADMIT Student in an Organized Health Care Education/Training Program; ATTEND Student in an Organized Health Care Education/Training Program
PROC: 0DB58ZX Excision of Esophagus, Via Natural or Artificial Opening Endoscopic, Diagnostic (ICD-10-PCS; 2017-02-19)
PROC: 0D758ZZ Dilation of Esophagus, Via Natural or Artificial Opening Endoscopic (ICD-10-PCS; principal; 2017-02-19 15:11)
DX: F31.4 Bipolar disorder, current episode depressed, severe, without psychotic features (principal); E43 Unspecified severe protein-calorie malnutrition; K22.3 Perforation of esophagus; I82.412 Acute embolism and thrombosis of left femoral vein; E87.0 Hyperosmolality and hypernatremia; R13.10 Dysphagia, unspecified; R64 Cachexia; Z68.1 Body mass index [BMI] 19.9 or less, adult; K91.71 Accidental puncture and laceration of a digestive system organ or structure during a digestive system procedure; R45.851 Suicidal ideations; I50.9 Heart failure, unspecified; E03.9 Hypothyroidism, unspecified; Z87.891 Personal history of nicotine dependence; E78.5 Hyperlipidemia, unspecified; I25.10 Atherosclerotic heart disease of native coronary artery without angina pectoris; Z95.1 Presence of aortocoronary bypass graft; Y83.8 Other surgical procedures as the cause of abnormal reaction of the patient, or of later complication, without mention of misadventure at the time of the procedure; K59.00 Constipation, unspecified; F41.9 Anxiety disorder, unspecified; R00.0 Tachycardia, unspecified; R19.7 Diarrhea, unspecified; R62.7 Adult failure to thrive
CPT/HCPCS: 74230; 80048; 80053; 80061; 80175; 80307; 81001; 82040; 82140; 82306; 82607; 82728; 82746; 82948; 83036; 83540; 83550; 83605; 83735; 84134; 84439; 84443; 84480; 84484; 85025; 85027; 85610; 87040; 87493; 88305; 93005; 93970; 96360; C1769; C9113; J0744; J1650; J3480; J7030

== ENCOUNTER 2017-03-01 18:35 | Inpatient (IN) | payer OTHER, MEDICARE ==
[2017-03-01] MEDS: DEXT 5%-NACL 0.45% 1000 ML INJ 1,000 ML IV SCH (00:45)
[~2017-03-01 18:35] MED LIST changes: +ARIP1TAB7 PO; -LAMO100 PO; +LAMO150 PO; -LITH300T3 PO; +NORT25CA PO; +PROP10TA6 PO; -Propranolol; -cane
[2017-03-01 20:41] VITALS: BP 135/65; PULSE 75; RESP 18; TEMP 98.4; O2SAT 98
[2017-03-01] MEDS: ENOXAPARIN SODIUM 60 MG/0.6 ML SYRINGE SQ SCH (21:30)
[2017-03-01] MEDS ORDERED: NALOXONE HCL 0.4 MG/ML AMP IV PRN (21:30)
[2017-03-01] MEDS ORDERED: SODIUM CHLORIDE 0.9% FLUSH 10 ML FLUSH IV FLUSH PRN (21:30)
[2017-03-02] VITALS (9 sets, daily range): BP systolic 124–137; BP diastolic 57–74; PULSE 71–97; RESP 14–20; TEMP 97.3–98.2; O2SAT 93–97
[2017-03-02] MEDS ORDERED: SODIUM CHLORID 0.9% 500 ML IV PRN (05:30)
[2017-03-02] MEDS ORDERED: METOPROLOL TARTRATE 25 MG TAB PO PRN (05:30)
[2017-03-02] MEDS ORDERED: LACTATED RINGER'S 1000 ML IV PRN (05:30)
[2017-03-02] MEDS ORDERED: INSULIN HUMAN REGULAR 1,000 UNITS/10 ML VIAL SQ PRN (05:30)
[2017-03-02] MEDS ORDERED: CHLORHEXIDINE GLUCONATE 2 % 1 PACK (2 CLOTHS) TOPICAL PRN (05:30)
[2017-03-02] MEDS ORDERED: POVIDONE IODINE 5% (ANTISEPSIS KIT) 4 APPLICATIONS EACH NARE PRN (05:30)
[2017-03-02] MEDS: SODIUM CHLORIDE 0.9% FLUSH 10 ML FLUSH IV FLUSH SCH ×2 (09:00→21:00)
[2017-03-02] MEDS: ENOXAPARIN SODIUM 60 MG/0.6 ML SYRINGE SQ SCH ×2 (09:00→21:00)
[2017-03-02] MEDS: DEXT 5%-NACL 0.45% 1000 ML INJ 1,000 ML IV SCH ×2 (09:25→21:20)
[2017-03-02 10:09] LABS: AUTOMATED NEUTROPHIL # 5.1 TH/MM3 (1.8-7.7); BASOPHIL # 0.1 TH/MM3 (0-0.2); BASOPHIL % 0.6 % (0.0-2.0); EOSINOPHIL # 0.2 TH/MM3 (0-0.4); EOSINOPHIL % 2.3 % (0.0-4.0); HEMATOCRIT 33.4 % (35.0-46.0); HEMO FLAGS DIFF FINAL; MEAN CELL VOLUME 88.2 FL (80.0-100.0); MEAN CORPUSCULAR HGB CONC 32.9 % (32.0-36.0); MONO % 7.8 % (0.0-8.0); NEUT % 64.3 % (16.0-70.0); PLATELET COUNT 344 TH/MM3 (150-450); RED BLOOD COUNT 3.79 MIL/MM3 (4.00-5.30); WHITE BLOOD COUNT 7.9 TH/MM3 (4.0-11.0)
[2017-03-02 10:53] LABS: BICARBONATE 25.4 MEQ/L (21.0-32.0); POTASSIUM 3.8 MEQ/L (3.5-5.1)
--- NOTE | 2017-03-02 11:32 | HHI.HP ---
[facility] Unknown Admission Diagnosis Diagnoses: Chief Complaint: Depression Travel History International Travel<30 Days: No Contact w/Intl Traveler <30 Da: No Traveled to Known Affected Are: No History of Present Illness The patient is a 71-year-old female with a past medical history of depression who is being treated in the medical psych unit who was transferred to the [facility] hospital because she has not been eating. Psychiatry has been considering starting the patient on ECT treatment, however, that might take quite some time in order to initiate. The patient says she does not want food and that she has no appetite. She says that everything hurts her and apparently food makes that worse. She was evaluated by gastroenterology who performed an EGD. There was an air leak following the EGD and cardiothoracic surgery was consulted. They recommended conservative management and monitoring. Repeat barium study showed resolution of perforation. The patient continued to avoid by mouth intake. Gastroenterology was consulted regarding PEG tube placement. The patient's family was agreeable with pursuing PEG tube placement. Palliative care was also consulted and continue to follow the patient to help manage with goals of care. The patient did have a PEG tube placed 03/02/17. Psychiatry will continue to follow the patient on the medical floor. Discussed with the patient 's nurse who stated that the patient did not speak all morning. The nurse did not have any acute concerns otherwise. Review of Systems ROS Limitations: Clinical Condition, Poor Historian Except as stated in HPI: all other systems reviewed are Neg Past Family Social History Past Medical History Bipolar disease Cardiovascular disease Congestive heart failure Hypothyroidism Depression Past Surgical History Right nephrectomy Cardiac catheterization Cervical fusion Allergies: Coded Allergies: penicillin G (Unverified Allergy, Intermediate, Hives, 02/20/17) diatrizoate meglumine (Unverified Allergy, Mild, PT DOES NOT REMEMBER, ) gadobenic acid (Unverified Allergy, Mild, PT DOES NOT REMEMBER, 02/20/17) gadodiamide (Unverified Allergy, Mild, PT DOES NOT REMEMBER, 02/20/17) gadoteridol (Unverified Allergy, Mild, PT DOES NOT REMEMBER, 02/20/17) iodixanol (Unverified Allergy, Mild, PT DOES NOT REMEMBER, 02/20/17) iohexol (Unverified Allergy, Mild, PT DOES NOT REMEMBER, 02/20/17) Active Ordered Medications Current Medications Medications (Trade) Dose Ordered Sig/Dasia Route Start Time Stop Time Status Last Admin (NS Flush) 2 ml UNSCH PRN IV FLUSH 03/01/17 21:30 (NS Flush) 2 ml BID IV FLUSH 03/02/17 09:00 (Narcan Inj) 0.4 mg UNSCH PRN IV 03/01/17 21:30 (Lovenox Inj) 50 mg Q12HR SQ 03/01/17 21:30 Dextrose/Sodium Chloride 1,000 ml @ 84 mls/hr [id number] IV 03/01/17 21:30 03/01/17 00:45 Lactated Ringer's 1,000 ml @ 30 mls/hr Q24H PRN IV 03/02/17 05:30 03/05/17 05:29 Sodium Chloride 500 ml @ 30 mls/hr [id number] PRN IV 03/02/17 05:30 03/05/17 05:29 (Lopressor) 25 mg REAL ESTATE ACCOUNTANT PRN PO 03/02/17 05:30 03/05/17 05:29 (Betadine 5% Antisepsis Kit) 1 applic REAL ESTATE ACCOUNTANT PRN EACH NARE 03/02/17 05:30 03/05/17 05:29 (Chlorhexidine 2% Cloth) 3 pack REAL ESTATE ACCOUNTANT PRN TOPICAL 03/02/17 05:30 03/05/17 05:29 (NovoLIN R INJ) See Protocol Table ... REAL ESTATE ACCOUNTANT PRN SQ 03/02/17 05:30 03/05/17 05:29 Family History The pt denies pertinent family history. Social History The pt quit smoking. She has rare alcohol use. Denies illicit substances. Physical Exam Vital Signs Vital Signs Date Time Temp Pulse Resp B/P (MAP) Pulse Ox O2 Delivery O2 Flow Rate FiO2 03/02/17 08:00 97.9 71 14 136/60 (85) 96 03/02/17 04:58 98.2 78 16 136/57 (83) 96 03/02/17 02:33 72 03/02/17 00:06 97.3 74 18 124/68 (86) 97 03/01/17 20:41 98.4 75 18 135/65 (88) 98 Physical Exam GENERAL: Resting comfortably. HEENT: NC, AT. CARDIOVASCULAR: Regular rate and rhythm without murmurs, gallops, or rubs. RESPIRATORY: Breath sounds equal bilaterally. No accessory muscle use. GASTROINTESTINAL: Abdomen soft, nontender to palpation. Dressings in place. MUSCULOSKELETAL: No cyanosis, or edema. NEURO: Lethargic. No gross deficits. PSYCH: Flattened affect. Laboratory Laboratory Tests Test 03/02/17 08:49 White Blood Count 7.9 Red Blood Count 3.79 Hemoglobin 11.0 Hematocrit 33.4 Mean Corpuscular Volume 88.2 Mean Corpuscular Hemoglobin 29.0 Mean Corpuscular Hemoglobin Concent 32.9 Red Cell Distribution Width 14.0 Platelet Count 344 Mean Platelet Volume 8.7 Neutrophils (%) (Auto) 64.3 Lymphocytes (%) (Auto) 25.0 Monocytes (%) (Auto) 7.8 Eosinophils (%) (Auto) 2.3 Basophils (%) (Auto) 0.6 Neutrophils # (Auto) 5.1 Lymphocytes # (Auto) 2.0 Monocytes # (Auto) 0.6 Eosinophils # (Auto) 0.2 Basophils # (Auto) 0.1 CBC Comment DIFF FINAL Differential Comment Blood Urea Nitrogen 6 Creatinine 0.47 Random Glucose 96 Calcium Level 8.9 Sodium Level 141 Potassium Level 3.8 Chloride Level 108 Carbon Dioxide Level 25.4 Anion Gap 8 Estimat Glomerular Filtration Rate 131 Result Diagram: 03/02/17 0849 03/02/17 0849 Caprini VTE Risk Assessment Caprini VTE Risk Assessment: Mod/High Risk (score >= 2) Caprini Risk Assessment Model Point Value = 1 Point Value = 2 Point Value = 3 Point Value = 5 Age 41-60 Minor surgery BMI > 25 kg/m2 Swollen legs Varicose veins or History of unexplained or recurrent spontaneous Oral contraceptives or hormone replacement Sepsis (< 1 month) Serious lung disease, including pneumonia (< 1 month) Abnormal pulmonary function Acute myocardial infarction Congestive heart failure (< 1 month) History of inflammatory bowel disease Medical patient at bed rest Age 61-74 Arthroscopic surgery Major open surgery (> 45 min) Laparoscopic surgery (> 45 min) Malignancy Confined to bed (> 72 hours) Immobilizing plaster cast Central venous access Age >= 75 History of VTE Family history of VTE Factor V Leiden Prothrombin [id number] Lupus anticoagulant Anticardiolipin antibodies Elevated serum homocysteine Heparin-induced thrombocytopenia Other congenital or acquired thrombophilia Stroke (< 1 month) Elective arthroplasty Hip, pelvis, or leg fracture Acute spinal cord injury (< 1 month) Prophylaxis Regimen Total Risk Factor Score Risk Level Prophylaxis Regimen 0-1 Low Early ambulation 2 Moderate Order ONE of the following: *Sequential Compression Device (SCD) *Heparin 5000 units SQ BID 3-4 Higher Order ONE of the following medications: *Heparin 5000 units SQ TID *Enoxaparin/Lovenox 40 mg SQ daily (WT < 150 kg, CrCl > 30 mL/min) *Enoxaparin/Lovenox 30 mg SQ daily (WT < 150 kg, CrCl > 10-29 mL/min) *Enoxaparin/Lovenox 30 mg SQ BID (WT < 150 kg, CrCl > 30 mL/min) AND/OR *Sequential Compression Device (SCD) 5 or more Highest Order ONE of the following medications: *Heparin 5000 units SQ TID (Preferred with Epidurals) *Enoxaparin/Lovenox 40 mg SQ daily (WT < 150 kg, CrCl > 30 mL/min) *Enoxaparin/Lovenox 30 mg SQ daily (WT < 150 kg, CrCl > 10-29 mL/min) *Enoxaparin/Lovenox 30 mg SQ BID (WT < 150 kg, CrCl > 30 mL/min) AND *Sequential Compression Device (SCD) Assessment and Plan Assessment and Plan Major depressive disorder The pt is withdrawn. - Treatment per psychiatry. - neuro checks. Anorexia/ Dysphagia/ Esophageal perforation/ Severe protein calorie malnutrition. 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 GI consulted for dysphagia. The patient is status post EGD with dilation on 02/20 after which the patient showed signs of esophageal perforation on barium swallow. Patient was started on IV ciprofloxacin and IV Flagyl empirically which was later discontinued. CT surgery consulted who recommended conservative management keeping the patient nothing by mouth. Repeat barium swallow on 02/24 showed that the noted apparent leakage and extravasated contrast was no longer present. The patient was started on a diet. GI signed off. 02/27 calorie count results show that patient is having inadequate by mouth intake to keep adequate nutrition. GI reconsulted. Palliative care consult appreciated. PEG tube placed 03/02. - tube feed recommendations requested from dietary. - Megace. - follow up with speech therapy. - follow up with palliative care. Hypothyroidism Home regimen Levothyroxine 0.88 mcg/day. TSH level initially 0.222. Repeat level over 8 with low free T4 and total T3. - resume levothyroxine at 88 mcg PO daily. DVT Patient with lower extremity swelling and Doppler of LLE shows extensive DVT. Patient started on Lovenox SQ at therapeutic dose for DVT. - Will transition to an oral agent once cleared by GI. Continue Lovenox for now. Anemia Iron studies noted. - check Hemoccult. PPx: Lovenox Discussed Condition With Pt's nurse, pt Physician Certification 2 Midnight Certification Type: Admission for Inpatient Services Order for Inpatient Services The services are ordered in accordance with Medicare regulations or non- Medicare payer requirements, as applicable. In the case of services not specified as inpatient-only, they are appropriately provided as inpatient services in accordance with the 2-midnight benchmark. Estimated LOS (days): 3 days is the estimated time the patient will need to remain in the hospital, assuming treatment plan goals are met and no additional complications. Post-Hospital Plan: Not yet determined Matthieu Hernandez DO Mar 02, 2017 11:32
[2017-03-02] MEDS ORDERED: LEVOFLOXACIN 500 MG PREMIX INJ 100 ML IV ONE (12:10)
[2017-03-02] MEDS ORDERED: PROPOFOL 200 MG/20 ML AMP IV PUSH ONE (12:30)
--- NOTE | 2017-03-02 12:39 | GIPROC ---
[facility] [address] [facility]. [facility], [address] EGD WITH PEG PROCEDURE REPORT EXAM DATE: 03/02/2017 PATIENT NAME: Suzanna Martins MR#: [id number] BIRTHDATE: 1945 ATTENDING: Rose Jorgensen MD ORDER #: [id number] [employer] PROJECT MANAGER: Sylvie Mary and Patricia Garay STATUS: inpatient INDICATIONS: The patient is a 71 yr old female here for an EGD with PEG due to placement of PEG PROCEDURE PERFORMED: EGD with PEG placement MEDICATIONS: None and Per Anesthesia. TOPICAL ANESTHETIC: none CONSENT: The patient understands the risks and benefits of the procedure and understands that these risks include, but are not limited to: sedation, allergic reaction, infection, perforation and/or bleeding. Alternative means of evaluation and treatment include, among others: physical exam, x-rays, and/or surgical intervention. The patient elects to proceed with this endoscopic procedure. medical equipment was checked for proper function. Hand hygiene and appropriate measures for infection prevention was taken. After the risks, benefits and alternatives of the procedure were thoroughly explained, Informed consent was verified, confirmed and timeout was successfully executed by the treatment team. The patient was anesthetized with topical anesthesia and the Pentax [id number] endoscope was introduced through the mouth and advanced to the second portion of the duodenum. The instrument was slowly withdrawn as the mucosa was fully examined. The upper, middle, and distal third of the esophagus were carefully inspected and no abnormalities were noted. The z-line was well seen at the GEJ. The endoscope was pushed into the fundus which was normal including a retroflexed view. The antrum, first and second part of the duodenum were unremarkable. The stomach was then inflated with air, and by a combination of transillumination and manual palpation, the site for the gastrostomy tube placement was selected and marked on the anterior abdominal wall. The skin of the anterior abdomen was surgically prepped and draped with sterile towels. Utilizing strict sterile technique, the selected site was then anesthetized with 1% xylocaine by injection into the skin and subcutaneous tissue. A 1 cm incision was made through the skin and subcutaneous tissue, and the needle/cannula assembly was then passed through the abdominal wall and through the anterior wall of the stomach, maintaining visualization with the endoscope. A snare device previously placed through the instrument channel was then opened and placed around the cannula, the needle was removed, and the insertion wire was passed through the cannula and into the stomach lumen. The snare was then loosened from the cannula, and repositioned to snare the insertion wire. The snare was then pulled up to the endoscope distal tip, and the scope was then withdrawn bringing with it the snare and insertion wire. The insertion wire was then released from the snare, and then loop-attached to the Bard 20 Fr gastrostomy tube. Using the "pull technique", the G-tube was then pulled into place by traction on the insertion wire at the abdominal wall end. The G-tube insertion site was then cleansed once again, and the external bolster was placed over the tube to secure it to the abdominal wall. A sterile dressing was then applied, and the procedure terminated. no abnormalities The gastroscope was then slowly withdrawn and removed. ADVERSE EVENT: There were no complications. IMPRESSIONS: 1. The upper, middle, and distal third of the esophagus were carefully inspected and no abnormalities were noted. The z-line was well seen at the GEJ. The endoscope was pushed into the fundus which was normal including a retroflexed view. The antrum, first and second part of the duodenum were unremarkable. 2. 20 F PEG tube placed successfully RECOMMENDATIONS: PEG recomendations: 1- NPO for 6 hours except for meds 2- Flush PEG tube every 6 hours with water and after each PEG feeding 3- May resume regular diet in the morning 4- May use Ensure or Boost etc. for PEG tube feeding REPEAT EXAM: procedure as needed Rose Jorgensen MD eSigned: Rose Jorgensen MD 03/02/2017 12:38 PM cc: PATIENT NAME: Suzanna Martins MR#: [id number]
[2017-03-02] MEDS: PANTOPRAZOLE SODIUM 40 MG VIAL IV PUSH SCH (13:00)
[2017-03-02] MEDS: MEGESTROL ACETATE SUSP 400 MG/10 ML CUP PO SCH (13:00)
[2017-03-02] MEDS: PRAVASTATIN SOD 40 MG TAB PO SCH (13:00)
[2017-03-02] MEDS ORDERED: LEVOTHYROXINE SODIUM 100 MCG VIAL IV PUSH ONE (15:00)
--- NOTE | 2017-03-02 15:49 | HHI.HCPN ---
Subjective/Interval History Palliative care reconsulted today, for continued follow-up as patient was moved from a different unit. Will continue to see in follow-up. Status post PEG placement earlier today. Tolerated procedure well. Now in medical Hospital room. Nursing indicates has not verbalized much for her, verbalized a little bit for family, verbalized a few sentences to recovery room nurses, asking if she would be released today, but when she was told that she would not be able to go home today she then stopped talking. Patient seen in room no visitors present. She appears to be sleeping however when I speak to her at my arrival I do note blinking motions with eyes closed she does seem to be aware of my presence but purposely not opening eyes or interacting with me. Upon attempting ROS she does not answer any of my questions except when I ask about pain she very slightly nods her head no. No apparent distress. PEG tube noted clamped, securely taped to abdomen no visible signs of issues, large dressing intact, clean and dry. Lung sounds are clear, on room air. . Family/friend interactions Call to patient daughter Ofe, she is with patient significant other and her sister spoke to all of them on speaker phone. Provided update of today's assessment, today's procedure/uneventful recovery from PEG, recent diagnostics. They endorse they continue to come and visit her in attempts to engage her that she interacted with them minimally. They will be in later this afternoon. Indicate psychiatry spoke with him about the possibility of ECT, they are open to proceeding with this if it may provide some benefit for patient. Goals remain aggressive to help maximize medical therapy for depression, bipolar and increased nutrition in hopes that patient can return to her baseline status just a couple months ago. Family is open to ongoing discussions as clinical course evolves, they understand that inpatient weaker, more debilitated state she does remain high risk for potential complications and setbacks. . Advance Directives Living Will: Never completed Health Care Surrogate: Never completed Durable Power of Landscape Horticulture Instructor: Never completed Objective Vital Signs Date Time Temp Pulse Resp B/P (MAP) Pulse Ox O2 Delivery O2 Flow Rate FiO2 03/02/17 14:00 97.6 74 14 137/67 (90) 96 03/02/17 13:25 98.4 78 16 136/65 (88) 98 03/02/17 13:15 69 15 128/58 (81) 95 03/02/17 13:00 70 15 158/70 (99) 97 03/02/17 12:45 98.2 74 15 150/69 (96) 100 03/02/17 08:00 97.9 71 14 136/60 (85) 96 03/02/17 04:58 98.2 78 16 136/57 (83) 96 03/02/17 02:33 72 03/02/17 00:06 97.3 74 18 124/68 (86) 97 03/01/17 20:41 98.4 75 18 135/65 (88) 98 Intake & Output 03/02/17 03/02/17 06:59 18:59 Intake Total 870 ml 350 ml Output Total 250 ml Balance 870 ml 100 ml IV Total 870 ml 50 ml Other 300 ml Output Urine Total 250 ml # Voids 1 1 # Bowel Movements 0 Physical Exam CONSTITUTIONAL/GENERAL: This is a frail, thin elderly patient who refuses to engage with examiner TUBES/LINES/DRAINS: Peripheral IV left upper extremity, PEG tube clamped CARDIOVASCULAR: Regular rate and rhythm without murmur. No JVD. Peripheral pulses symmetric. no peripheral edema. RESPIRATORY/CHEST: Symmetric, unlabored respirations. On room air. Clear to auscultation. Breath sounds equal bilaterally. GASTROINTESTINAL: Abdomen soft, flat, non-tender, nondistended. No hepato- splenomegaly, or palpable masses. No guarding. Bowel sounds present. PEG tube clamped, securely taped with dressing in place NEUROLOGICAL: Keeps eyes closed, though appears to be purposeful does appear to be awake though will not engage with examiner. Observe her move extremities spontaneously and she does appear to localize somewhat to touch but does not follow any of my commands. Limited neurological assessment. PSYCHIATRIC: No obvious anxiety/depression--limited assessment patient refuses to engage with examiner Diagnostic Tests Laboratory Laboratory Tests Test 03/02/17 08:49 White Blood Count 7.9 TH/MM3 (4.0-11.0) Red Blood Count 3.79 MIL/MM3 (4.00-5.30) Hemoglobin 11.0 GM/DL (11.6-15.3) Hematocrit 33.4 % (35.0-46.0) Mean Corpuscular Volume 88.2 FL (80.0-100.0) Mean Corpuscular Hemoglobin 29.0 PG (27.0-34.0) Mean Corpuscular Hemoglobin Concent 32.9 % (32.0-36.0) Red Cell Distribution Width 14.0 % (11.6-17.2) Platelet Count 344 TH/MM3 (150-450) Mean Platelet Volume 8.7 FL (7.0-11.0) Neutrophils (%) (Auto) 64.3 % (16.0-70.0) Lymphocytes (%) (Auto) 25.0 % (9.0-44.0) Monocytes (%) (Auto) 7.8 % (0.0-8.0) Eosinophils (%) (Auto) 2.3 % (0.0-4.0) Basophils (%) (Auto) 0.6 % (0.0-2.0) Neutrophils # (Auto) 5.1 TH/MM3 (1.8-7.7) Lymphocytes # (Auto) 2.0 TH/MM3 (1.0-4.8) Monocytes # (Auto) 0.6 TH/MM3 (0-0.9) Eosinophils # (Auto) 0.2 TH/MM3 (0-0.4) Basophils # (Auto) 0.1 TH/MM3 (0-0.2) CBC Comment DIFF FINAL Differential Comment Blood Urea Nitrogen 6 MG/DL (7-18) Creatinine 0.47 MG/DL (0.50-1.00) Random Glucose 96 MG/DL (74-106) Calcium Level 8.9 MG/DL (8.5-10.1) Sodium Level 141 MEQ/L (136-145) Potassium Level 3.8 MEQ/L (3.5-5.1) Chloride Level 108 MEQ/L (98-107) Carbon Dioxide Level 25.4 MEQ/L (21.0-32.0) Anion Gap 8 MEQ/L (5-15) Estimat Glomerular Filtration Rate 131 ML/MIN (>89) Result Diagram: 03/02/1749 03/02/17 0849 Assessment and Plan Disease Oriented Problem List: (1) Esophageal perforation (2) Hypothyroidism (3) Depression (4) Malnutrition (5) Weight loss (6) Dysphagia Symptom Scale: (1) Depression (2) Malnutrition Pertinent Non-Medical Issues Psychosocial:Lives with significant other Robin, of 30+ years. Supported by 2 daughters: Nargis Thakur . Completed high school education. Born and raised in [facility]. *Of note: recently her known psychiatrists entered care home prompting her to have to see a new psychiatrist, her significant other recently diagnosed with cancer, and she recently lost a pet. Spiritual:Anabaptist-not known if patient would want carton stapler support daughters will ask her Legal:Not clear that the patient is capacitated. She refuses to answer any questions during my exam. She is admitted for depression and long history of bipolar disorder. At times she is alert and oriented, though at other times she is not, not clear she has full insight into conditions. Her depression may limit her ability to make informed decisions. No advanced directives. Per [place] statutes and absence of this document or designated healthcare surrogate appropriate legal proxy would be 2 adult daughters Ethical issues impacting care: Important Contacts dtr Ofe Martins dtr Nargis [phone] Placido Cosme significant other [phone] / [phone] . Prognosis This patient has a long-standing history of bipolar, mental illness. She has in the past couple months been more depressed than usual, now malnourished and refusing food, medications. Has had full medical workup to rule out other etiologies. Minor adjustment to levothyroxine for TSH. Blood cultures thus far negative. Swallow evaluations negative. Decline, FTT May be secondary to depression? If mood can be stabilized, improved and by mouth intake should improve, and patient condition should stabilize. She does remain at risk for further complications and setbacks related to current frail state, and advanced age. . Code Status: Full Code Plan * Legal decision maker:Not clear that the patient is capacitated. She refuses to answer any questions during my exam. She is admitted for depression and long history of bipolar disorder. At times she is alert and oriented, though at other times she is not, not clear she has full insight into conditions. Her depression may limit her ability to make informed decisions. No advanced directives. Per [place] statutes and absence of this document or designated healthcare surrogate appropriate legal proxy would be 2 adult daughters * Goals: Pt refuses to participate in goals discussion. Not clear if she is capacitated. Family at this time expresses aggressive goals, they would support ongoing treatments to try to help patient overcome current malnutrition and depression to return to her prior self a few months ago. * CODE STATUS: Full code * SYMPTOMS: --Depression-long history of bipolar, depression. Had been doing fine until the past couple of months when she has had multiple social stressors, family indicates decline in eating, and steeper depression than usual. Psychiatry following, has been up titrating medications adjusting based on clinical course. --Malnutrition- patient initially reporting dysphagia unable to swallow however AST and barium swallow have not identified any anatomical or pathophysiological issues with dysphagia, patient does not want to eat. Albumin 4 at admission now in the twos. She continues to take minimal by mouth , refuses meds. Has eaten a few things such as family informed when they bought her a double cheeseburger from [employer] she ate it quite well. If mood is stabilized her eating should improve to usual state. GI has been consulted for PEG tube --s/p PEG tube today 03/02, artificial nutrition to begin once cleared per GI * Palliative care will continue to follow during hospital course as condition evolves, to assist patient/decision-maker with understanding of medical conditions, weighing benefits/burdens of treatment options, for clarification of goals of treatment. Additionally will assist with any symptoms of palliative concern Attestation To help prompt me to consider important information that might be impacting today's encounter and assessment, information from prior notes written by myself or my colleagues may have been "brought forward" into today's note. My signature on this note, however, is an attestation that I personally performed the exam, history, and/or decision-making noted today, and, unless otherwise indicated, the interactions with patient, family, and staff as well as the review of records all occurred today. I also attest that the listed assessment and stated plan reflect my best clinical judgment today based on the combination of historical information, prior notes, and today's exam/ interactions. When time spent is documented, it refers only to time spent today by the signer, or if indicated, combined time spent today by collaborating physician/nurse practitioner. Kristal Hernandez Mar 02, 2017 15:49
[2017-03-02] MEDS ORDERED: ACETAMINOPHEN 650 MG/20.3 ML UDC PO ONE (19:30)
[2017-03-02] MEDS ORDERED: ACETAMINOPHEN 650 MG/20.3 ML UDC G-TUBE ONE (20:00)
[2017-03-02] MEDS: OLANZapine 2.5 MG TAB PO SCH (21:12)
[2017-03-02] MEDS: lamoTRIgine 100 MG TAB PO SCH (21:12)
[2017-03-03] VITALS (7 sets, daily range): BP systolic 106–125; BP diastolic 50–58; PULSE 65–77; RESP 16–20; TEMP 97.1–98.8; O2SAT 93–97
[2017-03-03] MEDS ORDERED: LEVOTHYROXINE SODIUM 100 MCG VIAL IV PUSH SCH ×2 (06:00)
[2017-03-03] MEDS: LEVOTHYROXINE SODIUM 88 MCG TAB PEG SCH (07:00)
[2017-03-03] MEDS: SODIUM CHLORIDE 0.9% FLUSH 10 ML FLUSH IV FLUSH SCH ×2 (08:41→21:00)
[2017-03-03] MEDS: PRAVASTATIN SOD 40 MG TAB PO SCH (08:41)
[2017-03-03] MEDS: MEGESTROL ACETATE SUSP 400 MG/10 ML CUP PO SCH (08:41)
[2017-03-03] MEDS: ENOXAPARIN SODIUM 60 MG/0.6 ML SYRINGE SQ SCH ×2 (08:41→21:00)
[2017-03-03] MEDS: DEXT 5%-NACL 0.45% 1000 ML INJ 1,000 ML IV SCH ×2 (08:43→21:00)
--- NOTE | 2017-03-03 11:12 | HHI.PR ---
Subjective Remarks The patient was awake and alert. She said she doesn't think she is going to eat again. She said she would drink things like Coke. She had some abdominal discomfort around the PEG tube site. No acute complaints. Objective Vitals Vital Signs Date Time Temp Pulse Resp B/P (MAP) Pulse Ox O2 Delivery O2 Flow Rate FiO2 03/03/17 08:00 98.7 71 16 125/58 (80) 96 03/03/17 06:08 97.6 71 20 115/56 (75) 96 03/03/17 01:36 97.1 77 20 116/57 (76) 95 03/02/17 22:52 93 21 03/02/17 21:00 97.6 84 20 124/74 (91) 96 03/02/17 20:00 97 03/02/17 16:00 98.0 92 14 135/66 (89) 95 03/02/17 14:00 97.6 74 14 137/67 (90) 96 03/02/17 13:25 98.4 78 16 136/65 (88) 98 03/02/17 13:15 69 15 128/58 (81) 95 03/02/17 13:00 70 15 158/70 (99) 97 03/02/17 12:45 98.2 74 15 150/69 (96) 100 I/O 03/02/17 03/02/17 03/02/17 03/03/17 03/03/17 03/03/17 06:59 14:59 22:59 06:59 14:59 22:59 Intake Total 870 ml 350 ml 375 ml Output Total 250 ml Balance 870 ml 100 ml 375 ml IV Total 870 ml 50 ml Tube Feeding 135 ml Tube Irrigant 240 ml Other 300 ml Output Urine Total 250 ml # Voids 1 6 1 # Bowel Movements 0 Result Diagram: 03/02/1749 03/02/1749 Objective Remarks GENERAL: Resting comfortably. HEENT: NC, AT. CARDIOVASCULAR: Regular rate and rhythm without murmurs, gallops, or rubs. RESPIRATORY: Breath sounds equal bilaterally. No accessory muscle use. GASTROINTESTINAL: Abdomen soft. Site around PEG tube appears clean, slightly tender to palpation. MUSCULOSKELETAL: No cyanosis, or edema. EXTREMITIES: No lower extremity edema. NEURO: Awake and alert. No gross deficits. PSYCH: Flattened affect. Procedures PEG tube placement 03/02 Medications and IVs Current Medications Medications (Trade) Dose Ordered Sig/Dasia Route Start Time Stop Time Status Last Admin (NS Flush) 2 ml UNSCH PRN IV FLUSH 03/01/17 21:30 (NS Flush) 2 ml BID IV FLUSH 03/02/17 09:00 03/03/17 08:41 (Narcan Inj) 0.4 mg UNSCH PRN IV 03/01/17 21:30 (Lovenox Inj) 50 mg Q12HR SQ 03/01/17 21:30 Dextrose/Sodium Chloride 1,000 ml @ 84 mls/hr [id number] IV 03/01/17 21:30 03/03/17 08:43 Lactated Ringer's 1,000 ml @ 30 mls/hr Q24H PRN IV 03/02/17 05:30 03/05/17 05:29 Sodium Chloride 500 ml @ 30 mls/hr [id number] PRN IV 03/02/17 05:30 03/05/17 05:29 (Lopressor) 25 mg STAFF EDUCATOR PRN PO 03/02/17 05:30 03/05/17 05:29 (Betadine 5% Antisepsis Kit) 1 applic STAFF EDUCATOR PRN EACH NARE 03/02/17 05:30 03/05/17 05:29 (Chlorhexidine 2% Cloth) 3 pack STAFF EDUCATOR PRN TOPICAL 03/02/17 05:30 03/05/17 05:29 (NovoLIN R INJ) See Protocol Table ... STAFF EDUCATOR PRN SQ 03/02/17 05:30 03/05/17 05:29 (LaMICtal) 150 mg HS PO 03/02/17 21:00 03/02/17 21:12 (Pravachol) 40 mg DAILY PO 03/02/17 13:00 03/03/17 08:41 (Megace Liq) 400 mg DAILY PO 03/02/17 13:00 03/03/17 08:41 (Protonix Inj) 40 mg Q24H IV PUSH 03/02/17 13:00 (ZyPREXA) 2.5 mg HS PO 03/02/17 21:00 03/02/17 21:12 (Synthroid) 88 mcg DAILY@0600 PEG 03/03/17 06:00 03/03/17 07:00 A/P Assessment and Plan Major depressive disorder The pt is withdrawn. - Treatment per psychiatry. - neuro checks. Anorexia/ Dysphagia/ Esophageal perforation/ Severe protein calorie malnutrition. 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 GI consulted for dysphagia. The patient is status post EGD with dilation on 02/20 after which the patient showed signs of esophageal perforation on barium swallow. Patient was started on IV ciprofloxacin and IV Flagyl empirically which was later discontinued. CT surgery consulted who recommended conservative management keeping the patient nothing by mouth. Repeat barium swallow on 02/24 showed that the noted apparent leakage and extravasated contrast was no longer present. The patient was started on a diet. GI signed off. 02/27 calorie count results show that patient is having inadequate by mouth intake to keep adequate nutrition. GI reconsulted. Palliative care consult appreciated. PEG tube placed 03/02. - tube feed recommendations requested from dietary. Will have speech therapy evaluate patient. - continue Megace. - follow up with palliative care. Hypothyroidism Home regimen Levothyroxine 0.88 mcg/day. TSH level initially 0.222. Repeat level over 8 with low free T4 and total T3. - resume levothyroxine at 88 mcg PO daily. DVT Patient with lower extremity swelling and Doppler of LLE shows extensive DVT. Patient started on Lovenox SQ at therapeutic dose for DVT. - Will transition to an oral agent once cleared by GI. Continue Lovenox for now. Anemia Iron studies noted. - check Hemoccult. PPx: Lovenox Discharge Planning Awaiting psych clearance Matthieu Hernandez DO Mar 03, 2017 11:12
[2017-03-03] MEDS: DOCUSATE SODIUM 50 MG/SENNA 8.6 MG TAB PO SCH ×2 (12:02→21:01)
[2017-03-03] MEDS: PANTOPRAZOLE SODIUM 40 MG VIAL IV PUSH SCH (12:02)
[2017-03-03 12:10] LABS: BICARBONATE 27.1 MEQ/L (21.0-32.0); POTASSIUM 3.7 MEQ/L (3.5-5.1)
--- NOTE | 2017-03-03 12:13 | PD.PSY.CON ---
Provisional Diagnosis Admission Date Mar 01, 2017 at 18:35 [place]. Major depression, single episode, severe, without psychotic features History of Present Illness Service Psychiatry Consult Requested By Attending physician Reason for Consult Patient admitted from psychiatry to medical service due to failure to thrive. Primary Care Physician Unknown HPI 71-year-old female with history of significant depression and inability or unwillingness to eat. Patient remains very depressed and speaks only minimally. She continues to have little or no interest and little or no energy. Still requires feeding for nutritional value. Continues to be candidate for electroconvulsive therapy. Review of Systems Except as stated in HPI: all other systems reviewed are Neg Past Family Social History Coded Allergies: penicillin G (Unverified Allergy, Intermediate, Hives, 02/20/17) diatrizoate meglumine (Unverified Allergy, Mild, PT DOES NOT REMEMBER, ) gadobenic acid (Unverified Allergy, Mild, PT DOES NOT REMEMBER, 02/20/17) gadodiamide (Unverified Allergy, Mild, PT DOES NOT REMEMBER, 02/20/17) gadoteridol (Unverified Allergy, Mild, PT DOES NOT REMEMBER, 02/20/17) iodixanol (Unverified Allergy, Mild, PT DOES NOT REMEMBER, 02/20/17) iohexol (Unverified Allergy, Mild, PT DOES NOT REMEMBER, 02/20/17) Reported Medications Aripiprazole (Abilify) 20 Mg Tab, 20 MG PO DAILY, #30 TAB 0 Refills 02/15/17 Nortriptyline (Nortriptyline) 25 Mg Cap, 25 MG PO HS for Depression Control, # 30 CAP 0 Refills 02/15/17 Lamotrigine (Lamictal) 150 Mg Tab, 150 MG PO HS for BIPOLAR, #60 TAB 0 Refills 02/15/17 Propranolol (Propranolol) 10 Mg Tab, 10 MG PO BID for Anxiety, #60 TAB 0 Refills 02/15/17 Pravastatin (Pravachol) 40 Mg Tab, 40 MG PO DAILY for Cholesterol Management, # 30 TAB 0 Refills 11/03/16 Levothyroxine (Levothyroxine) 88 Mcg Tab, 88 MCG PO DAILY for Thyroid, #30 TAB 0 Refills 11/03/16 Current Medications Medications (Trade) Dose Ordered Sig/Dasia Route Start Time Stop Time Status Last Admin (NS Flush) 2 ml UNSCH PRN IV FLUSH 03/01/17 21:30 (NS Flush) 2 ml BID IV FLUSH 03/02/17 09:00 03/03/17 08:41 (Narcan Inj) 0.4 mg UNSCH PRN IV 03/01/17 21:30 (Lovenox Inj) 50 mg Q12HR SQ 03/01/17 21:30 Dextrose/Sodium Chloride 1,000 ml @ 84 mls/hr [id number] IV 03/01/17 21:30 03/03/17 08:43 Lactated Ringer's 1,000 ml @ 30 mls/hr Q24H PRN IV 03/02/17 05:30 03/05/17 05:29 Sodium Chloride 500 ml @ 30 mls/hr [id number] PRN IV 03/02/17 05:30 03/05/17 05:29 (Lopressor) 25 mg HOTEL REGISTRATION CLERK PRN PO 03/02/17 05:30 03/05/17 05:29 (Betadine 5% Antisepsis Kit) 1 applic HOTEL REGISTRATION CLERK PRN EACH NARE 03/02/17 05:30 03/05/17 05:29 (Chlorhexidine 2% Cloth) 3 pack HOTEL REGISTRATION CLERK PRN TOPICAL 03/02/17 05:30 03/05/17 05:29 (NovoLIN R INJ) See Protocol Table ... HOTEL REGISTRATION CLERK PRN SQ 03/02/17 05:30 03/05/17 05:29 (LaMICtal) 150 mg HS PO 03/02/17 21:00 03/02/17 21:12 (Pravachol) 40 mg DAILY PO 03/02/17 13:00 03/03/17 08:41 (Megace Liq) 400 mg DAILY PO 03/02/17 13:00 03/03/17 08:41 (Protonix Inj) 40 mg Q24H IV PUSH 03/02/17 13:00 03/03/17 12:02 (ZyPREXA) 2.5 mg HS PO 03/02/17 21:00 03/02/17 21:12 (Synthroid) 88 mcg DAILY@0600 PEG 03/03/17 06:00 03/03/17 07:00 (Court-Colace) 1 tab BID PO 03/03/17 12:00 03/03/17 12:02 Family History Declines to discuss Social History Declines to discuss Patient's Strengths (min. 2) Resilient and has access to healthcare. Physical Exam Vital Signs Vital Signs Date Time Temp Pulse Resp B/P (MAP) Pulse Ox O2 Delivery O2 Flow Rate FiO2 03/03/17 08:00 98.7 71 16 125/58 (80) 96 03/02/17 22:52 21 I/O 03/03/17 03/03/17 03/03/17 07:59 15:59 23:59 Intake Total 375 ml Balance 375 ml Lab Results Test 03/03/17 11:28 Mental Status Examination Speech: Other Orientation: Person Memory: Unremarkable Thought Process: Other Thought Content: Other Hallucination Type: None Suicidal Ideation: No Previous Suicide Attempts: No Homicidal Ideation: No Previous Homicide Attempts: No Insight: Poor Judgment: Unrealistic Affect: Other Affect if Inappropriate: Flat Mood: Other Motor Activity: Normal gait Assessment & Plan Problem List: (1) Severe major depression without psychotic features ICD Codes: F32.2 - Major depressive disorder, single episode, severe without psychotic features Status: Acute Assessment & Plan Estimated LOS: days. Suggest your top case assembler and psychiatry medical assistant dermatology discussed transfer to other facility which provides electroconvulsive therapy, once patient is physically stable. Kev Sousa MD Mar 03, 2017 12:13
--- NOTE | 2017-03-03 13:30 | HHI.GIFU ---
Subjective Remarks Resting in bed. Tolerating TF at 30cc/hr. States she wants to eat, but family reports that she has been kept npo until GI clears her to eat. No n/v. (Elizabeth Mills) Objective Vitals I&O Vital Signs Date Time Temp Pulse Resp B/P (MAP) Pulse Ox O2 Delivery O2 Flow Rate FiO2 03/03/17 12:50 65 03/03/17 12:00 98.6 70 16 106/50 (68) 95 03/03/17 08:00 98.7 71 16 125/58 (80) 96 03/03/17 06:08 97.6 71 20 115/56 (75) 96 03/03/17 01:36 97.1 77 20 116/57 (76) 95 03/02/17 22:52 93 21 03/02/17 21:00 97.6 84 20 124/74 (91) 96 03/02/17 20:00 97 03/02/17 16:00 98.0 92 14 135/66 (89) 95 03/02/17 14:00 97.6 74 14 137/67 (90) 96 03/02/17 13:25 98.4 78 16 136/65 (88) 98 I/O 03/02/17 03/02/17 03/02/17 03/03/17 03/03/17 03/03/17 06:59 14:59 22:59 06:59 14:59 22:59 Intake Total 870 ml 350 ml 375 ml Output Total 250 ml Balance 870 ml 100 ml 375 ml IV Total 870 ml 50 ml Tube Feeding 135 ml Tube Irrigant 240 ml Other 300 ml Output Urine Total 250 ml # Voids 1 6 1 # Bowel Movements 0 Laboratory Laboratory Tests Test 03/03/17 11:28 Blood Urea Nitrogen 8 Creatinine 0.58 Random Glucose 122 Calcium Level 8.6 Sodium Level 138 Potassium Level 3.7 Chloride Level 105 Carbon Dioxide Level 27.1 Anion Gap 6 Estimat Glomerular Filtration Rate 103 Physical Exam HEENT: Normocephalic; atraumatic; no jaundice. CHEST: CTA CARDIAC: RRR. ABDOMEN: Soft, nondistended, nontender; no hepatosplenomegaly; bowel sounds are present in all four quadrants. PEG tube site without redness, swelling drainage EXTREMITIES: No clubbing, cyanosis, or edema. SKIN: Normal; no rash; no jaundice. WELLNESS GUIDE: Lethargic, flat affect (Elizabeth Mills) Assessment and Plan Plan ASSESSMENT - Dysphagia, poor PO intake, malnutrition, has responded to esophageal dilatation in past. S/P EGD with dilatation and random biopsies (02/19/17)----> Normal EGD, S/P random biopsies. There was no obvious etiology for her symptoms on EGD and therefore Barium Swallow was ordered. Barium Swallow X-Ray (02/20/17)----> Small amounts of extraluminal contrast seen around the distal esophagus and medial stomach. I came to see patient, but she had already had her lunch. She reports that she is not able to swallow, but the nurses report that she has been tolerating her diet. Clinically, she was not in any distress- afebrile, no n/v/pain/odynophagia. S/P CVT evaluation. Rpt. Barium Swallow X-Ray (02/22/17)----> Negative limited study. The previously noted apparent leakage and extravasated contrast is no longer present. She continued to have poor oral intake. S/P EGD with PEG tube placement (03/02/17)-- ---> 1. The upper, middle, and distal third of the esophagus were carefully inspected and no abnormalities were noted. The z-line was well seen at the GEJ. The endoscope was pushed into the fundus which was normal including a retroflexed view. The antrum, first and second part of the duodenum were unremarkable. 2. 20 F PEG tube placed successfully. Site without redness or swelling. Tolerating TF at 30cc/hr. NPO, but wants to eat. States she was told that she could not eat until seen by GI. - Bipolar disorder with depressive sx, per attending PLAN: - Soft diet - Jevity 1.5 240cc at breakfast, lunch, dinner, and hs - Encourage po intake - Flush tube before and after meds/tf - GI will sign off, please reconsult as needed - Pt seen and examined by Dr. Jorgensen and myself and this note is written on his behalf (Elizabeth Mills) Physician Comments S/P PEG placement successfully, plan as above, please notify us if needed. (Rose Jorgensen MD) Elizabeth Mills Mar 03, 2017 13:30 Rose Jorgensen MD Mar 03, 2017 14:43
[2017-03-03] MEDS: lamoTRIgine 100 MG TAB PO SCH (20:59)
[2017-03-03] MEDS: OLANZapine 2.5 MG TAB PO SCH (21:00)
[2017-03-04] VITALS: BP 127/60; PULSE 75; RESP 20; TEMP 98; O2SAT 74
[2017-03-04] MEDS: ACETAMINOPHEN 650 MG/20.3 ML UDC PO PRN ×2 (03:20→12:15)
[2017-03-04 04:00] VITALS: BP 116/56; PULSE 70; RESP 20; TEMP 98.2; O2SAT 96
[2017-03-04] MEDS: LEVOTHYROXINE SODIUM 88 MCG TAB PEG SCH (05:49)
[2017-03-04] MEDS: SODIUM CHLORIDE 0.9% FLUSH 10 ML FLUSH IV FLUSH SCH ×2 (07:59→20:22)
[2017-03-04] MEDS: MEGESTROL ACETATE SUSP 400 MG/10 ML CUP PO SCH (07:59)
[2017-03-04] MEDS: PRAVASTATIN SOD 40 MG TAB PO SCH (07:59)
[2017-03-04] MEDS: ENOXAPARIN SODIUM 60 MG/0.6 ML SYRINGE SQ SCH (07:59)
[2017-03-04] MEDS: DEXT 5%-NACL 0.45% 1000 ML INJ 1,000 ML IV SCH ×2 (07:59→19:41)
[2017-03-04] MEDS: DOCUSATE SODIUM 50 MG/SENNA 8.6 MG TAB PO SCH ×2 (07:59→20:22)
[2017-03-04 08:00] VITALS: BP 121/56; PULSE 71; RESP 16; TEMP 98.9; O2SAT 96
[2017-03-04 10:28] VITALS: PULSE 69
[2017-03-04 12:00] VITALS: BP 125/56; PULSE 67; RESP 17; TEMP 97.5; O2SAT 98
[2017-03-04] MEDS: PANTOPRAZOLE SODIUM 40 MG VIAL IV PUSH SCH (12:11)
--- NOTE | 2017-03-04 13:00 | HHI.PR ---
Subjective Remarks The patient's oldest daughter was at bedside. She wanted to know what psych medications her mother was on. The patient has not been eating. She complains of some chronic abdominal pain. Has not been getting out of bed. Objective Vitals Vital Signs Date Time Temp Pulse Resp B/P (MAP) Pulse Ox O2 Delivery O2 Flow Rate FiO2 03/04/17 12:00 97.5 67 17 125/56 (79) 98 03/04/17 10:28 69 03/04/17 08:00 98.9 71 16 121/56 (77) 96 03/04/17 04:00 98.2 70 20 116/56 (76) 96 03/04/17 00:00 98.0 75 20 127/60 (82) 74 03/03/17 20:00 69 03/03/17 20:00 98.3 66 20 121/58 (79) 97 03/03/17 16:00 98.8 70 17 112/51 (71) 93 I/O 03/03/17 03/03/17 03/03/17 03/04/17 03/04/17 03/04/17 07:00 15:00 23:00 07:00 15:00 23:00 Intake Total 375 ml 480 ml 120 ml Balance 375 ml 480 ml 120 ml Tube Feeding 135 ml 240 ml Tube Irrigant 240 ml 120 ml Other 240 ml # Voids 1 2 Result Diagram: 03/02/17 0849 03/03/17 1128 Objective Remarks GENERAL: Resting comfortably. HEENT: NC, AT. CARDIOVASCULAR: Regular rate and rhythm without murmurs, gallops, or rubs. RESPIRATORY: Breath sounds equal bilaterally. No accessory muscle use. GASTROINTESTINAL: Abdomen soft. Site around PEG tube appears clean, slightly tender to palpation. MUSCULOSKELETAL: No cyanosis, or edema. EXTREMITIES: No lower extremity edema. NEURO: Awake and alert. No gross deficits. PSYCH: Flattened affect. Procedures PEG tube placement 03/02 Medications and IVs Current Medications Medications (Trade) Dose Ordered Sig/Dasia Route Start Time Stop Time Status Last Admin (NS Flush) 2 ml UNSCH PRN IV FLUSH 03/01/17 21:30 (NS Flush) 2 ml BID IV FLUSH 03/02/17 09:00 03/03/17 21:00 (Narcan Inj) 0.4 mg UNSCH PRN IV 03/01/17 21:30 (Lovenox Inj) 50 mg Q12HR SQ 03/01/17 21:30 03/04/17 07:59 Dextrose/Sodium Chloride 1,000 ml @ 84 mls/hr [id number] IV 03/01/17 21:30 03/04/17 07:59 Lactated Ringer's 1,000 ml @ 30 mls/hr Q24H PRN IV 03/02/17 05:30 03/05/17 05:29 Sodium Chloride 500 ml @ 30 mls/hr [id number] PRN IV 03/02/17 05:30 03/05/17 05:29 (Lopressor) 25 mg TARIFF PUBLISHING AGENT PRN PO 03/02/17 05:30 03/05/17 05:29 (Betadine 5% Antisepsis Kit) 1 applic TARIFF PUBLISHING AGENT PRN EACH NARE 03/02/17 05:30 03/05/17 05:29 (Chlorhexidine 2% Cloth) 3 pack TARIFF PUBLISHING AGENT PRN TOPICAL 03/02/17 05:30 03/05/17 05:29 (NovoLIN R INJ) See Protocol Table ... TARIFF PUBLISHING AGENT PRN SQ 03/02/17 05:30 03/05/17 05:29 (LaMICtal) 150 mg HS PO 03/02/17 21:00 03/03/17 20:59 (Pravachol) 40 mg DAILY PO 03/02/17 13:00 03/04/17 07:59 (Megace Liq) 400 mg DAILY PO 03/02/17 13:00 03/04/17 07:59 (Protonix Inj) 40 mg Q24H IV PUSH 03/02/17 13:00 03/04/17 12:11 (ZyPREXA) 2.5 mg HS PO 03/02/17 21:00 03/03/17 21:00 (Synthroid) 88 mcg DAILY@0600 PEG 03/03/17 06:00 03/04/17 05:49 (Court-Colace) 1 tab BID PO 03/03/17 12:00 03/04/17 07:59 (Tylenol 650 Mg/ 20 ml Liq) 650 mg Q6H PRN PO 03/04/17 02:45 03/04/17 12:15 A/P Assessment and Plan Major depressive disorder The pt is withdrawn. - Treatment per psychiatry. - neuro checks. Anorexia/ Dysphagia/ Esophageal perforation/ Severe protein calorie malnutrition. 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 GI consulted for dysphagia. The patient is status post EGD with dilation on 02/20 after which the patient showed signs of esophageal perforation on barium swallow. Patient was started on IV ciprofloxacin and IV Flagyl empirically which was later discontinued. CT surgery consulted who recommended conservative management keeping the patient nothing by mouth. Repeat barium swallow on 02/24 showed that the noted apparent leakage and extravasated contrast was no longer present. The patient was started on a diet. GI signed off. 02/27 calorie count results show that patient is having inadequate by mouth intake to keep adequate nutrition. GI reconsulted. Palliative care consult appreciated. PEG tube placed 03/02. - tube feed recommendations requested from dietary. Speech therapy following. - continue Megace. - follow up with palliative care. Hypothyroidism Home regimen Levothyroxine 0.88 mcg/day. TSH level initially 0.222. Repeat level over 8 with low free T4 and total T3. - resumed levothyroxine at 88 mcg PO daily. DVT Patient with lower extremity swelling and Doppler of LLE shows extensive DVT. Patient started on Lovenox SQ at therapeutic dose for DVT. - Will transition to Xarelto 03/04. D/c Lovenox. Anemia Iron studies noted. - check Hemoccult. Weakness The pt has not been very mobile. - PT/ OT evaluations requested. PPx: Xarelto Discharge Planning Awaiting psych clearance Matthieu Hernandez DO Mar 04, 2017 13:00
[2017-03-04] MEDS: RIVAROXABAN 15 MG TAB PO SCH (16:54)
[2017-03-04 20:00] VITALS: BP 121/56; PULSE 64; RESP 16; TEMP 98.2; O2SAT 97
[2017-03-04] MEDS: lamoTRIgine 100 MG TAB PO SCH (20:22)
[2017-03-04] MEDS: OLANZapine 2.5 MG TAB PO SCH (20:22)
[2017-03-05] VITALS (9 sets, daily range): BP systolic 113–128; BP diastolic 41–59; PULSE 66–78; RESP 16–20; TEMP 97–98.3; O2SAT 96–97
[2017-03-05] MEDS: LEVOTHYROXINE SODIUM 88 MCG TAB PEG SCH (05:49)
--- NOTE | 2017-03-05 08:56 | HHI.PR ---
Subjective Remarks The pt was laying in bed. She was minimally verbal. She said everything hurts. She has not been eating. Discussed with case management. Objective Vitals Vital Signs Date Time Temp Pulse Resp B/P (MAP) Pulse Ox O2 Delivery O2 Flow Rate FiO2 03/05/17 08:13 97.7 68 18 128/59 (82) 97 03/05/17 04:00 97.0 78 20 121/58 (79) 97 03/05/17 03:41 66 03/05/17 00:25 98.3 76 16 125/59 (81) 97 03/04/17 20:00 98.2 64 16 121/56 (77) 97 03/04/17 12:00 97.5 67 17 125/56 (79) 98 03/04/17 10:28 69 I/O 03/04/17 03/04/17 03/04/17 03/05/17 03/05/17 03/05/17 07:00 15:00 23:00 07:00 15:00 23:00 Intake Total 120 ml 1360 ml Balance 120 ml 1360 ml IV Total 1000 ml Tube Feeding 240 ml Tube Irrigant 120 ml Other 120 ml # Voids 2 3 Result Diagram: 03/02/17 0849 03/03/17 1128 Objective Remarks GENERAL: Resting comfortably. HEENT: NC, AT. CARDIOVASCULAR: Regular rate and rhythm without murmurs, gallops, or rubs. RESPIRATORY: Breath sounds equal bilaterally. No accessory muscle use. GASTROINTESTINAL: Abdomen soft. Site around PEG tube appears clean, nontender to palpation. MUSCULOSKELETAL: No cyanosis, or edema. EXTREMITIES: No lower extremity edema. NEURO: Awake and alert. No gross deficits. PSYCH: Flattened affect. Procedures PEG tube placement 03/02 Medications and IVs Current Medications Medications (Trade) Dose Ordered Sig/Dasia Route Start Time Stop Time Status Last Admin (NS Flush) 2 ml UNSCH PRN IV FLUSH 03/01/17 21:30 (NS Flush) 2 ml BID IV FLUSH 03/02/17 09:00 03/04/17 20:22 (Narcan Inj) 0.4 mg UNSCH PRN IV 03/01/17 21:30 Dextrose/Sodium Chloride 1,000 ml @ 84 mls/hr [id number] IV 03/01/17 21:30 03/04/17 19:41 (LaMICtal) 150 mg HS PO 03/02/17 21:00 03/04/17 20:22 (Pravachol) 40 mg DAILY PO 03/02/17 13:00 03/04/17 07:59 (Megace Liq) 400 mg DAILY PO 03/02/17 13:00 03/04/17 07:59 (Protonix Inj) 40 mg Q24H IV PUSH 03/02/17 13:00 03/04/17 12:11 (ZyPREXA) 2.5 mg HS PO 03/02/17 21:00 03/04/17 20:22 (Synthroid) 88 mcg DAILY@0600 PEG 03/03/17 06:00 03/05/17 05:49 (Court-Colace) 1 tab BID PO 03/03/17 12:00 03/04/17 20:22 (Tylenol 650 Mg/ 20 ml Liq) 650 mg Q6H PRN PO 03/04/17 02:45 03/04/17 12:15 (Xarelto) 15 mg BID PO 03/04/17 18:00 03/04/17 16:54 A/P Assessment and Plan Major depressive disorder The pt is withdrawn. - Treatment per psychiatry, including possible transfer to a facility that provides ECT. - neuro checks. Anorexia/ Dysphagia/ Esophageal perforation/ Severe protein calorie malnutrition. 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 GI consulted for dysphagia. The patient is status post EGD with dilation on 02/20 after which the patient showed signs of esophageal perforation on barium swallow. Patient was started on IV ciprofloxacin and IV Flagyl empirically which was later discontinued. CT surgery consulted who recommended conservative management keeping the patient nothing by mouth. Repeat barium swallow on 02/24 showed that the noted apparent leakage and extravasated contrast was no longer present. The patient was started on a diet. GI signed off. 02/27 calorie count results show that patient is having inadequate by mouth intake to keep adequate nutrition. GI reconsulted. Palliative care consult appreciated. PEG tube placed 03/02. - tube feed recommendations requested from dietary. Speech therapy following. - continue Megace. - follow up with palliative care. Hypothyroidism Home regimen Levothyroxine 0.88 mcg/day. TSH level initially 0.222. Repeat level over 8 with low free T4 and total T3. - resumed levothyroxine at 88 mcg PO daily. DVT Patient with lower extremity swelling and Doppler of LLE shows extensive DVT. Patient started on Lovenox SQ at therapeutic dose for DVT. - discontinued Lovenox and transitioned to Xarelto on 03/04. Anemia Iron studies noted. - check Hemoccult. Weakness The pt has not been very mobile. - PT/ OT evaluations requested. PPx: Xarelto Discharge Planning Awaiting psych clearance or transfer to facility which provides ECT Matthieu Hernandez DO Mar 05, 2017 08:56
[2017-03-05] MEDS: SODIUM CHLORIDE 0.9% FLUSH 10 ML FLUSH IV FLUSH SCH ×2 (09:00→21:00)
[2017-03-05] MEDS: DEXT 5%-NACL 0.45% 1000 ML INJ 1,000 ML IV SCH ×2 (09:38→21:55)
[2017-03-05] MEDS: MEGESTROL ACETATE SUSP 400 MG/10 ML CUP PO SCH (09:40)
[2017-03-05] MEDS: DOCUSATE SODIUM 50 MG/SENNA 8.6 MG TAB PO SCH ×2 (09:40→21:56)
[2017-03-05] MEDS: RIVAROXABAN 15 MG TAB PO SCH ×2 (09:40→21:56)
[2017-03-05] MEDS: PRAVASTATIN SOD 40 MG TAB PO SCH (09:40)
[2017-03-05] MEDS: PANTOPRAZOLE SODIUM 40 MG VIAL IV PUSH SCH (12:46)
--- NOTE | 2017-03-05 16:59 | HHI.HCPN ---
Subjective/Interval History Received call before my arrival to pt unit, from family requesting update. Updated on available information per EMR and advised I would update further after physically seeing pt. Status post PEG placement last week, Now receiving TF. Also on diet, +megace. Still w poor oral intake. PT, OT following. Pt flat, with limited participation per their documentation. Dual visit w S Lower GEOGRAPHIC INFORMATION SYSTEM SURVEYOR Patient seen in room no visitors present. She appears to be sleeping however when I speak to her she arouses some. Very flat but does verbalize yes or no to simple questions. Answers some other questions with one-word however speaks very softly is very difficult to hear her. Minimally engages. She does follow simple commands. She keeps her eyes closed for much of the time. She does not elaborate to any questions beyond one-word answers. ROS negative denies any complaints. Attempted to review hospital course and treatments in place ask her what her hopes are to come of this, she states she wants to go home. Advised that we need to maximize her medical/psychiatric conditions, nutritional status before this can happen. She will not further engage. . Family/friend interactions Call to daughter Ranjana, and dtr Nargis, provided updates on current condition, treatments, assessment during my visit. All questions answered. They indicate pt did open up to possibility of ECT treatment in the future today. They endorse patient little bit more interactive today. They continue to remain hopeful patient can improve with maximize therapy and return to her home status prior. Advance Directives Living Will: Never completed Health Care Surrogate: Never completed Durable Power of Livestock Nutritionist: Never completed Objective Vital Signs Date Time Temp Pulse Resp B/P (MAP) Pulse Ox O2 Delivery O2 Flow Rate FiO2 03/05/17 12:26 98.1 75 17 124/56 (78) 97 03/05/17 11:04 96 03/05/17 08:13 97.7 68 18 128/59 (82) 97 03/05/17 08:00 67 03/05/17 04:00 97.0 78 20 121/58 (79) 97 03/05/17 03:41 66 03/05/17 00:25 98.3 76 16 125/59 (81) 97 03/04/17 20:00 98.2 64 16 121/56 (77) 97 Intake & Output 03/05/17 03/05/17 07:00 19:00 Intake Total 1360 ml Balance 1360 ml IV Total 1000 ml Tube Feeding 240 ml Other 120 ml # Voids 3 Physical Exam CONSTITUTIONAL/GENERAL: This is a frail, thin elderly patient who refuses to engage with examiner TUBES/LINES/DRAINS: Peripheral IV left upper extremity, PEG tube clamped CARDIOVASCULAR: Regular rate and rhythm without murmur. No JVD. Peripheral pulses symmetric. no peripheral edema. RESPIRATORY/CHEST: Symmetric, unlabored respirations. On room air. Clear to auscultation. Breath sounds equal bilaterally. GASTROINTESTINAL: Abdomen soft, flat, non-tender, nondistended. No hepato- splenomegaly, or palpable masses. No guarding. Bowel sounds present. PEG tube w tube feed infusing dressing clean and dry. NEUROLOGICAL: Sleeping though arouses some to my exam. Opens eyes some though does keep closed for most of time. Answer some yes and no questions appears partially oriented. Answers with one word /difficult to fully assess orientation or insight. Her extremities with generalized weakness. PSYCHIATRIC: No obvious anxiety/depression--limited assessment patient with very limited engagement Diagnostic Tests Laboratory Laboratory Tests Test 03/03/17 11:28 Blood Urea Nitrogen 8 MG/DL (7-18) Creatinine 0.58 MG/DL (0.50-1.00) Random Glucose 122 MG/DL (74-106) Calcium Level 8.6 MG/DL (8.5-10.1) Sodium Level 138 MEQ/L (136-145) Potassium Level 3.7 MEQ/L (3.5-5.1) Chloride Level 105 MEQ/L (98-107) Carbon Dioxide Level 27.1 MEQ/L (21.0-32.0) Anion Gap 6 MEQ/L (5-15) Estimat Glomerular Filtration Rate 103 ML/MIN (>89) Result Diagram: 03/02/17 0849 03/03/17 1128 Assessment and Plan Disease Oriented Problem List: (1) Esophageal perforation (2) Hypothyroidism (3) Depression (4) Malnutrition (5) Weight loss (6) Dysphagia Symptom Scale: (1) Depression (2) Malnutrition Pertinent Non-Medical Issues Psychosocial:Lives with significant other Robin, of 30+ years. Supported by 2 daughters: Nargis Thakur . Completed high school education. Born and raised in [facility]. *Of note: recently her known psychiatrists entered [facility] prompting her to have to see a new psychiatrist, her significant other recently diagnosed with cancer, and she recently lost a pet. Spiritual:Yazdanism-not known if patient would want puppet master support daughters will ask her Legal:Not clear that the patient is capacitated. She refuses to answer any questions during my exam. She is admitted for depression and long history of bipolar disorder. At times she is alert and oriented, though at other times she is not, not clear she has full insight into conditions. Her depression may limit her ability to make informed decisions. No advanced directives. Per [place] statutes and absence of this document or designated healthcare surrogate appropriate legal proxy would be 2 adult daughters Ethical issues impacting care: Important Contacts dtr Ofe Martins dtr Nargis [phone] Placido Cosme significant other [phone] / [phone] . Prognosis This patient has a long-standing history of bipolar, mental illness. She has in the past couple months been more depressed than usual, now malnourished and refusing food, medications. Has had full medical workup to rule out other etiologies. Minor adjustment to levothyroxine for TSH. Blood cultures thus far negative. Swallow evaluations negative. Decline, FTT May be secondary to depression? If mood can be stabilized, improved and by mouth intake should improve, and patient condition should stabilize. She does remain at risk for further complications and setbacks related to current frail state, and advanced age. . Code Status: Full Code Plan * Legal decision maker:Not clear that the patient is capacitated. She refuses to answer any questions during my exam. She is admitted for depression and long history of bipolar disorder. At times she is alert and oriented, though at other times she is not, not clear she has full insight into conditions. Her depression may limit her ability to make informed decisions. No advanced directives. Per [place] statutes and absence of this document or designated healthcare surrogate appropriate legal proxy would be 2 adult daughters * Goals: Patient with limited ability to participate. Not clear if she is capacitated. Daughters continue to express aggressive goals, they would support ongoing treatments to try to help patient overcome current malnutrition and depression to return to her prior self a few months ago. Status post PEG tube last week. * CODE STATUS: Full code * SYMPTOMS: --Depression-long history of bipolar, depression. Had been doing fine until the past couple of months when she has had multiple social stressors, family indicates decline in eating, and steeper depression than usual. Psychiatry following, has been up titrating medications adjusting based on clinical course. --Malnutrition- patient initially reporting dysphagia unable to swallow however AST and barium swallow have not identified any anatomical or pathophysiological issues with dysphagia, patient does not want to eat. Albumin 4 at admission now in the twos. She continues to take minimal by mouth , refuses meds. Has eaten a few things such as family informed when they bought her a double cheeseburger from [employer] she ate it quite well. If mood is stabilized her eating should improve to usual state. GI has been consulted for PEG tube --s/p PEG tube today 03/02, artificial nutrition to begin once cleared per GI --Anxiety-daughters endorse patient seems to have intermittent anxiety They wonder if she might benefit from prn anxiety medication advised that I would defer this to psychiatry as she is already on significant psychiatric medications * Palliative care will continue to follow during hospital course as condition evolves, to assist patient/decision-maker with understanding of medical conditions, weighing benefits/burdens of treatment options, for clarification of goals of treatment. Additionally will assist with any symptoms of palliative concern Attestation To help prompt me to consider important information that might be impacting today's encounter and assessment, information from prior notes written by myself or my colleagues may have been "brought forward" into today's note. My signature on this note, however, is an attestation that I personally performed the exam, history, and/or decision-making noted today, and, unless otherwise indicated, the interactions with patient, family, and staff as well as the review of records all occurred today. I also attest that the listed assessment and stated plan reflect my best clinical judgment today based on the combination of historical information, prior notes, and today's exam/ interactions. When time spent is documented, it refers only to time spent today by the signer, or if indicated, combined time spent today by collaborating physician/nurse practitioner. Kristal Hernandez Mar 05, 2017 16:59
[2017-03-05] MEDS: ACETAMINOPHEN 650 MG/20.3 ML UDC PO PRN (18:46)
[2017-03-05] MEDS: lamoTRIgine 100 MG TAB PO SCH (21:56)
[2017-03-05] MEDS: OLANZapine 2.5 MG TAB PO SCH (21:56)
[2017-03-06] VITALS (9 sets, daily range): BP systolic 112–142; BP diastolic 50–60; PULSE 68–78; RESP 16–20; TEMP 97.6–99; O2SAT 96–100
[2017-03-06] MEDS: LEVOTHYROXINE SODIUM 88 MCG TAB PEG SCH (07:38)
[2017-03-06] MEDS: PRAVASTATIN SOD 40 MG TAB PO SCH (08:12)
[2017-03-06] MEDS: DOCUSATE SODIUM 50 MG/SENNA 8.6 MG TAB PO SCH ×2 (08:12→23:06)
[2017-03-06] MEDS: RIVAROXABAN 15 MG TAB PO SCH ×2 (08:12→23:06)
[2017-03-06] MEDS: MEGESTROL ACETATE SUSP 400 MG/10 ML CUP PO SCH (08:13)
[2017-03-06] MEDS: SODIUM CHLORIDE 0.9% FLUSH 10 ML FLUSH IV FLUSH SCH ×2 (08:13→21:00)
[2017-03-06] MEDS: DEXT 5%-NACL 0.45% 1000 ML INJ 1,000 ML IV SCH (08:45)
--- NOTE | 2017-03-06 09:20 | HHI.PR ---
Subjective Remarks The pt was resting in bed, minimally verbal. She denied headache but did endorse full body pain. She still did not want to eat. No nausea with the tube feeds. Objective Vitals Vital Signs Date Time Temp Pulse Resp B/P (MAP) Pulse Ox O2 Delivery O2 Flow Rate FiO2 03/06/17 08:00 97.9 78 17 115/58 (77) 96 03/06/17 03:47 97.8 74 16 142/60 (87) 100 03/06/17 00:52 97.9 68 16 125/50 (75) 96 03/05/17 21:07 97.8 71 16 113/41 (65) 97 03/05/17 16:44 98.1 75 18 118/53 (74) 96 03/05/17 12:26 98.1 75 17 124/56 (78) 97 03/05/17 11:04 96 I/O 03/05/17 03/05/17 03/05/17 03/06/17 03/06/17 03/06/17 07:00 15:00 23:00 07:00 15:00 23:00 Intake Total 1080 ml Balance 1080 ml IV Total 1080 ml # Voids 3 1 Result Diagram: 03/02/17 0849 03/03/17 1128 Objective Remarks GENERAL: Resting comfortably. HEENT: NC, AT. CARDIOVASCULAR: Regular rate and rhythm without murmurs, gallops, or rubs. RESPIRATORY: Breath sounds equal bilaterally. No accessory muscle use. GASTROINTESTINAL: Abdomen soft. Site around PEG tube appears clean, nontender to palpation. MUSCULOSKELETAL: No cyanosis, or edema. EXTREMITIES: No lower extremity edema. NEURO: Awake and alert. No gross deficits. PSYCH: Flattened affect. Procedures PEG tube placement 03/02 Medications and IVs Current Medications Medications (Trade) Dose Ordered Sig/Dasia Route Start Time Stop Time Status Last Admin (NS Flush) 2 ml UNSCH PRN IV FLUSH 03/01/17 21:30 (NS Flush) 2 ml BID IV FLUSH 03/02/17 09:00 03/04/17 20:22 (Narcan Inj) 0.4 mg UNSCH PRN IV 03/01/17 21:30 Dextrose/Sodium Chloride 1,000 ml @ 84 mls/hr [id number] IV 03/01/17 21:30 03/05/17 21:55 (LaMICtal) 150 mg HS PO 03/02/17 21:00 03/05/17 21:56 (Pravachol) 40 mg DAILY PO 03/02/17 13:00 03/06/17 08:12 (Megace Liq) 400 mg DAILY PO 03/02/17 13:00 03/06/17 08:13 (Protonix Inj) 40 mg Q24H IV PUSH 03/02/17 13:00 03/05/17 12:46 (ZyPREXA) 2.5 mg HS PO 03/02/17 21:00 03/05/17 21:56 (Synthroid) 88 mcg DAILY@0600 PEG 03/03/17 06:00 03/06/17 07:38 (Court-Colace) 1 tab BID PO 03/03/17 12:00 03/06/17 08:12 (Tylenol 650 Mg/ 20 ml Liq) 650 mg Q6H PRN PO 03/04/17 02:45 03/05/17 18:46 (Xarelto) 15 mg BID PO 03/04/17 18:00 03/06/17 08:12 A/P Assessment and Plan Major depressive disorder The pt is withdrawn. - Treatment per psychiatry, including possible transfer to a facility that provides ECT. foreign exchange services manager aware. - neuro checks. Anorexia/ Dysphagia/ Esophageal perforation/ Severe protein calorie malnutrition. 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 GI consulted for dysphagia. The patient is status post EGD with dilation on 02/20 after which the patient showed signs of esophageal perforation on barium swallow. Patient was started on IV ciprofloxacin and IV Flagyl empirically which was later discontinued. CT surgery consulted who recommended conservative management keeping the patient nothing by mouth. Repeat barium swallow on 02/24 showed that the noted apparent leakage and extravasated contrast was no longer present. The patient was started on a diet. GI signed off. 02/27 calorie count results show that patient is having inadequate by mouth intake to keep adequate nutrition. GI reconsulted. Palliative care consult appreciated. PEG tube placed 03/02. - tube feed recommendations requested from dietary. Speech therapy following. - continue Megace. - follow up with palliative care. - repeat labs pending 03/06. Hypothyroidism Home regimen Levothyroxine 0.88 mcg/day. TSH level initially 0.222. Repeat level over 8 with low free T4 and total T3. - resumed levothyroxine at 88 mcg PO daily. DVT Patient with lower extremity swelling and Doppler of LLE shows extensive DVT. Patient started on Lovenox SQ at therapeutic dose for DVT. - discontinued Lovenox and transitioned to Xarelto on 03/04. Anemia Iron studies noted. - check Hemoccult. Weakness The pt has not been very mobile. - PT/ OT evaluations requested. PPx: Xarelto Discharge Planning Awaiting transfer to facility which provides ECT per psychiatry Matthieu Hernandez DO Mar 06, 2017 09:20
[2017-03-06 11:12] LABS: MAGNESIUM 2.2 MG/DL (1.5-2.5)
[2017-03-06] MEDS: PANTOPRAZOLE SODIUM 40 MG VIAL IV PUSH SCH (13:12)
[2017-03-06] MEDS: ACETAMINOPHEN 650 MG/20.3 ML UDC PO PRN ×2 (17:50→19:18)
--- NOTE | 2017-03-06 21:13 | HHI.PYPN ---
Subjective Remarks LATE ENTRY: Patient seen on 03/05/17, patient found lying on hospital bed, able to participate in interview, calm and cooperative. Patient states that her family had just left prior to advertising writer walking in. She states that she continues to feel "the same", reporting feeling depressed with thoughts of not wanting to be alive although she states that she is trying to improve on her eating. The option of having her transferred to a facility where she can receive ECT was discussed which she agreed to. Patient continues to be noted to be dysphoric. Review of Systems Except as stated in HPI: all other systems reviewed are Neg Objective Alert: Yes [place]: Person, Place, Date Mood: Depressed Affect: Restricted Memory Intact: Comment (intact) Hallucinations: Other (denies) Delusions: No Delusion Type: Other (denies) Suicidal: Ideation (denies) Homicidal: Ideation Insight/Judgment fair insight, impulse control and judgement Labs Test 03/06/17 10:08 Blood Urea Nitrogen 8 MG/DL Creatinine 0.53 MG/DL Random Glucose 96 MG/DL Calcium Level 8.6 MG/DL Phosphorus Level 2.0 MG/DL Magnesium Level 2.2 MG/DL Sodium Level 142 MEQ/L Potassium Level 4.0 MEQ/L Chloride Level 109 MEQ/L Carbon Dioxide Level 26.0 MEQ/L Anion Gap 7 MEQ/L Estimat Glomerular Filtration Rate 114 ML/MIN Vitals/IOs Vital Signs Date Time Temp Pulse Resp B/P (MAP) Pulse Ox O2 Delivery O2 Flow Rate FiO2 03/06/17 17:40 97 21 03/06/17 16:00 98.0 73 17 117/53 (74) Intake and Output 03/06/17 03/06/17 03/07/17 08:00 16:00 00:00 Intake Total 240 ml 240 ml 1080 ml Balance 240 ml 240 ml 1080 ml Assessment & Plan Problem List: (1) Severe major depression without psychotic features ICD Codes: F32.2 - Major depressive disorder, single episode, severe without psychotic features Status: Acute Assessment & Plan Patient at this time continues to endorse depressive symptoms, continues to be managed by medical team for failure to thrive after placement of PEG tube. Patient continues to endorse thoughts of not wanting to be alive but is motivated at times, especially with family present to try and improve her physical state. Request to have patient transferred to a neighboring facility for ECT was attempted but was denied due to patient currently with PEG tube. Will continue to attempt transfer to other facilities. Recommend increase in Lamictal to 200mg HS for mood stabilization, increase olanzapine to 5mg PO HS for acute treatment resistent depression. Monitor for hypotension risk and possible decrease in WBC. Justification for Cont. Inpt. At risk for further decompensation if at lower level of care. Mitch Cruz MD Mar 06, 2017 21:13
[2017-03-06] MEDS: lamoTRIgine 100 MG TAB PO SCH (23:06)
[2017-03-07] VITALS (9 sets, daily range): BP systolic 110–131; BP diastolic 52–60; PULSE 62–73; RESP 16–19; TEMP 97.7–98.9; O2SAT 94–98
[2017-03-07] MEDS: DEXT 5%-NACL 0.45% 1000 ML INJ 1,000 ML IV SCH ×3 (00:09→20:30)
[2017-03-07] MEDS: LEVOTHYROXINE SODIUM 88 MCG TAB PEG SCH (05:36)
[2017-03-07] MEDS: MEGESTROL ACETATE SUSP 400 MG/10 ML CUP PO SCH (08:08)
[2017-03-07] MEDS: SODIUM CHLORIDE 0.9% FLUSH 10 ML FLUSH IV FLUSH SCH ×2 (08:08→20:33)
[2017-03-07] MEDS: DOCUSATE SODIUM 50 MG/SENNA 8.6 MG TAB PO SCH ×2 (08:09→20:32)
[2017-03-07] MEDS: PRAVASTATIN SOD 40 MG TAB PO SCH (08:10)
[2017-03-07] MEDS: RIVAROXABAN 15 MG TAB PO SCH ×2 (08:11→20:32)
[2017-03-07] MEDS: PANTOPRAZOLE SODIUM 40 MG VIAL IV PUSH SCH (12:25)
--- NOTE | 2017-03-07 18:28 | HHI.PR ---
Subjective Remarks feels depressed no appetite denies cp/sob denies abdominal pain Objective Vitals Vital Signs Date Time Temp Pulse Resp B/P (MAP) Pulse Ox O2 Delivery O2 Flow Rate FiO2 03/07/17 15:56 97.7 73 16 111/52 (71) 98 03/07/17 13:03 94 03/07/17 11:56 97.9 70 16 124/58 (80) 97 03/07/17 08:20 98.0 71 16 110/53 (72) 95 03/07/17 08:00 62 03/07/17 04:00 97.9 62 19 131/60 (83) 96 03/07/17 00:00 98.4 73 19 128/60 (82) 96 03/06/17 21:20 97.6 73 19 120/58 (78) 97 03/06/17 20:00 99.0 74 20 134/60 (84) 96 I/O 03/06/17 03/06/17 03/06/17 03/07/17 03/07/17 03/07/17 07:00 15:00 23:00 07:00 15:00 23:00 Intake Total 480 ml 1080 ml Balance 480 ml 1080 ml Intake Oral 840 ml Tube Feeding 480 ml 240 ml # Voids 3 1 # Bowel Movements 0 Result Diagram: 03/06/17 1008 Objective Remarks AAOx3 PEG C/D/I, abdomen soft NT, ND No edema in lower extremities Flat affect Procedures PEG tube placement 03/02 Medications and IVs Current Medications Medications (Trade) Dose Ordered Sig/Dasia Route Start Time Stop Time Status Last Admin (NS Flush) 2 ml UNSCH PRN IV FLUSH 03/01/17 21:30 (NS Flush) 2 ml BID IV FLUSH 03/02/17 09:00 03/04/17 20:22 (Narcan Inj) 0.4 mg UNSCH PRN IV 03/01/17 21:30 Dextrose/Sodium Chloride 1,000 ml @ 84 mls/hr [id number] IV 03/01/17 21:30 03/07/17 08:07 (LaMICtal) 150 mg HS PO 03/02/17 21:00 03/06/17 23:06 (Pravachol) 40 mg DAILY PO 03/02/17 13:00 8/30/17 08:10 (Megace Liq) 400 mg DAILY PO 03/02/17 13:00 03/07/17 08:08 (Protonix Inj) 40 mg Q24H IV PUSH 03/02/17 13:00 03/07/17 12:25 (Synthroid) 88 mcg DAILY@0600 PEG 03/03/17 06:00 03/07/17 05:36 (Court-Colace) 1 tab BID PO 03/03/17 12:00 03/07/17 08:09 (Tylenol 650 Mg/ 20 ml Liq) 650 mg Q6H PRN PO 03/04/17 02:45 03/06/17 17:50 (Xarelto) 15 mg BID PO 03/04/17 18:00 03/07/17 08:11 (ZyPREXA) 5 mg HS PO 03/07/17 21:00 Urinary Catheter: No Vascular Central Line Catheter: No A/P Problem List: (1) Bipolar disorder with severe depression ICD Code: F31.4 - Bipolar disorder, current episode depressed, severe, without psychotic features Status: Acute (2) Generalized weakness ICD Code: R53.1 - Asthenia Status: Acute (3) Hypothyroidism Status: Chronic (4) Anorexia ICD Code: R63.0 - Anorexia Assessment and Plan Major depressive disorder The pt is withdrawn. - Treatment per psychiatry, including possible transfer to a facility that provides ECT. personalized living manager nurse aware. - neuro checks. Anorexia/ Dysphagia/ Esophageal perforation/ Severe protein calorie malnutrition. 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 GI consulted for dysphagia. The patient is status post EGD with dilation on 02/20 after which the patient showed signs of esophageal perforation on barium swallow. Patient was started on IV ciprofloxacin and IV Flagyl empirically which was later discontinued. CT surgery consulted who recommended conservative management keeping the patient nothing by mouth. Repeat barium swallow on 02/24 showed that the noted apparent leakage and extravasated contrast was no longer present. The patient was started on a diet. GI signed off. 02/27 calorie count results show that patient is having inadequate by mouth intake to keep adequate nutrition. GI reconsulted. Palliative care consult appreciated. PEG tube placed 03/02. - tube feed recommendations requested from dietary. Speech therapy following. - continue Megace. - follow up with palliative care. 03/07 patient tolerating tube feedings. Hypothyroidism Home regimen Levothyroxine 0.88 mcg/day. TSH level initially 0.222. Repeat level over 8 with low free T4 and total T3. - Continue levothyroxine at 88 mcg PO daily. DVT Patient with lower extremity swelling and Doppler of LLE shows extensive DVT. Patient started on Lovenox SQ at therapeutic dose for DVT. - discontinued Lovenox and transitioned to Xarelto on 03/04. Anemia Iron studies noted. Weakness The pt has not been very mobile. - PT/ OT evaluations requested. PPx: Xarelto Discharge Planning Dc pending acceptance for transfer for ECT. Collins Ortega MD Mar 07, 2017 18:28
[2017-03-07] MEDS: OLANZapine 5 MG TAB PO SCH (20:32)
[2017-03-07] MEDS: lamoTRIgine 100 MG TAB PO SCH (20:32)
[2017-03-08] VITALS (9 sets, daily range): BP systolic 115–128; BP diastolic 52–63; PULSE 67–96; RESP 18–20; TEMP 97.5–98.9; O2SAT 94–99
[2017-03-08] MEDS: LEVOTHYROXINE SODIUM 88 MCG TAB PEG SCH (05:56)
[2017-03-08] MEDS: MEGESTROL ACETATE SUSP 400 MG/10 ML CUP PO SCH (08:36)
[2017-03-08] MEDS: PRAVASTATIN SOD 40 MG TAB PO SCH (08:37)
[2017-03-08] MEDS: RIVAROXABAN 15 MG TAB PO SCH ×2 (08:37→20:23)
[2017-03-08] MEDS: DOCUSATE SODIUM 50 MG/SENNA 8.6 MG TAB PO SCH ×2 (08:37→20:23)
[2017-03-08] MEDS: DEXT 5%-NACL 0.45% 1000 ML INJ 1,000 ML IV SCH ×2 (08:37→20:26)
[2017-03-08] MEDS: SODIUM CHLORIDE 0.9% FLUSH 10 ML FLUSH IV FLUSH SCH ×2 (08:48→20:24)
[2017-03-08] MEDS: PANTOPRAZOLE SODIUM 40 MG VIAL IV PUSH SCH (12:43)
--- NOTE | 2017-03-08 17:07 | HHI.PYPN ---
Subjective Remarks Patient seen for follow up, chart reviewed. After discussion with nursing staff , patient has been seen eating slightly more, sleeping well and with improved mood when family visits. Patient found lying on hospital bed, calm and cooperative with interview. Patient states that she has been feeling "the same" noted to be dysthymic but slightly more reactive. Patient states that she is trying to eat more but mostly of things that she likes (e.g. pizza, hamburgers) . Patient continues to report depressed mood, continues to have thoughts of not wanting to be alive but denies any thoughts of wanting to end her life. She continues to endorse decreased energy, appetite, concentration, decrease in pleasure in activities (e.g. watching television), anhedonia. Patient aware of the possibility of that she may be transferred to another facility for ECT and pending availability at the receiving facility which she continues to agree with. Review of Systems Except as stated in HPI: all other systems reviewed are Neg Objective Alert: Yes [place]: Person, Place, Date Mood: Depressed Affect: Blunted Memory Intact: Comment (intact) Hallucinations: Other (denies) Delusions: No Delusion Type: Other (denies) Suicidal: Ideation (denies) Homicidal: Ideation Insight/Judgment Fair insight, impulse control and judgement Vitals/IOs Vital Signs Date Time Temp Pulse Resp B/P (MAP) Pulse Ox O2 Delivery O2 Flow Rate FiO2 03/08/17 09:00 69 03/08/17 04:00 97.5 18 128/62 (84) 99 03/06/17 17:40 21 Intake and Output 03/08/17 03/08/17 03/09/17 08:00 16:00 00:00 Intake Total 720 ml Balance 720 ml Assessment & Plan Problem List: (1) Severe major depression without psychotic features ICD Codes: F32.2 - Major depressive disorder, single episode, severe without psychotic features Status: Acute Assessment & Plan Patient continues to endorse depressive symptoms, appearing very dysthymic and endorsing thoughts of not wanting to be alive. Patient currently on waiting list for transfer to [facility] for ECT pending bed availability. Increase Lamictal to 200mg PO HS. Monitor for medication response and possible ADRs. Continue recommendations as per primary medical team. Continue to encourage increase in oral intake. Supportive psychotherapy provided. Justification for Cont. Inpt. At risk for decompensation if at lower level of care. Mitch Cruz MD Mar 08, 2017 17:07
--- NOTE | 2017-03-08 17:59 | HHI.PR ---
Subjective Remarks Patient denies abdominal pain, nausea or vomiting denies cp/sob tolerating tube feedings stable vital signs still states does not have appetite still feels depressed Objective Vitals Vital Signs Date Time Temp Pulse Resp B/P (MAP) Pulse Ox O2 Delivery O2 Flow Rate FiO2 03/08/17 09:00 69 03/08/17 04:00 97.5 71 18 128/62 (84) 99 03/08/17 02:40 94 03/08/17 00:00 98.3 67 18 127/63 (84) 94 03/07/17 20:00 98.9 69 18 125/60 (81) 97 03/07/17 19:00 67 I/O 03/07/17 03/07/17 03/07/17 03/08/17 03/08/17 03/08/17 07:00 15:00 23:00 07:00 15:00 23:00 Intake Total 720 ml 720 ml 1070 ml Balance 720 ml 720 ml 1070 ml IV Total 770 ml Tube Feeding 720 ml 480 ml 240 ml Other 240 ml 60 ml # Voids 1 1 3 Result Diagram: 03/06/17 1008 Objective Remarks AAOx3 PEG C/D/I, abdomen soft NT, ND No edema in lower extremities Flat affect Procedures PEG tube placement 03/02 Medications and IVs Current Medications Medications (Trade) Dose Ordered Sig/Dasia Route Start Time Stop Time Status Last Admin (NS Flush) 2 ml UNSCH PRN IV FLUSH 03/01/17 21:30 (NS Flush) 2 ml BID IV FLUSH 03/02/17 09:00 03/04/17 20:22 (Narcan Inj) 0.4 mg UNSCH PRN IV 03/01/17 21:30 Dextrose/Sodium Chloride 1,000 ml @ 84 mls/hr [id number] IV 03/01/17 21:30 03/08/17 08:37 (Pravachol) 40 mg DAILY PO 03/02/17 13:00 03/08/17 08:37 (Megace Liq) 400 mg DAILY PO 03/02/17 13:00 03/08/17 08:36 (Protonix Inj) 40 mg Q24H IV PUSH 03/02/17 13:00 03/08/17 12:43 (Synthroid) 88 mcg DAILY@0600 PEG 03/03/17 06:00 03/08/17 05:56 (Court-Colace) 1 tab BID PO 03/03/17 12:00 03/08/17 08:37 (Tylenol 650 Mg/ 20 ml Liq) 650 mg Q6H PRN PO 03/04/17 02:45 03/06/17 17:50 (Xarelto) 15 mg BID PO 03/04/17 18:00 03/08/17 08:37 (ZyPREXA) 5 mg HS PO 03/07/17 21:00 03/07/17 20:32 (K-Phos Neutral) 250 mg Q8HR PO 03/08/17 22:00 (LaMICtal) 200 mg HS PO 03/08/17 21:00 A/P Problem List: (1) Bipolar disorder with severe depression ICD Code: F31.4 - Bipolar disorder, current episode depressed, severe, without psychotic features Status: Acute (2) Generalized weakness ICD Code: R53.1 - Asthenia Status: Acute (3) Hypothyroidism Status: Chronic (4) Anorexia ICD Code: R63.0 - Anorexia (5) PEG (percutaneous endoscopic gastrostomy) status ICD Code: Z93.1 - Gastrostomy status Status: Acute (6) DVT (deep venous thrombosis) ICD Code: I82.409 - Acute embolism and thrombosis of unspecified deep veins of unspecified lower extremity Status: Chronic (7) Esophageal perforation ICD Code: K22.3 - Perforation of esophagus Status: Acute Assessment and Plan Major depressive disorder The pt is withdrawn. - Treatment per psychiatry, including possible transfer to a facility that provides ECT. retail advertising sales manager aware. - neuro checks. Anorexia/ Dysphagia/ Esophageal perforation/ Severe protein calorie malnutrition. 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 GI consulted for dysphagia. The patient is status post EGD with dilation on 02/20 after which the patient showed signs of esophageal perforation on barium swallow. Patient was started on IV ciprofloxacin and IV Flagyl empirically which was later discontinued. CT surgery consulted who recommended conservative management keeping the patient nothing by mouth. Repeat barium swallow on 02/24 showed that the noted apparent leakage and extravasated contrast was no longer present. The patient was started on a diet. GI signed off. 02/27 calorie count results show that patient is having inadequate by mouth intake to keep adequate nutrition. GI reconsulted. Palliative care consult appreciated. PEG tube placed 03/02. - tube feed recommendations requested from dietary. Speech therapy following. - continue Megace. - follow up with palliative care. 03/07 patient tolerating tube feedings. Hypothyroidism Home regimen Levothyroxine 0.88 mcg/day. TSH level initially 0.222. Repeat level over 8 with low free T4 and total T3. - Continue levothyroxine at 88 mcg PO daily. DVT Patient with lower extremity swelling and Doppler of LLE shows extensive DVT. Patient started on Lovenox SQ at therapeutic dose for DVT. - discontinued Lovenox and transitioned to Xarelto on 03/04. Anemia Iron studies noted. Weakness The pt has not been very mobile. - PT/ OT evaluations requested. PPx: Xarelto Discharge Planning Dc pending acceptance for transfer for ECT. Problem Qualifiers (1) DVT (deep venous thrombosis): Qualified Codes: I82.4Z2 - Acute embolism and thrombosis of unspecified deep veins of left distal lower extremity Collins Ortega MD Mar 08, 2017 17:59
[2017-03-08] MEDS: OLANZapine 5 MG TAB PO SCH (20:23)
[2017-03-08] MEDS: lamoTRIgine 100 MG TAB PO SCH (20:24)
[2017-03-08] MEDS: POTASSIUM PHOSPHATE/SODIUM PHOSPHATE 250 MG TAB PO SCH (20:24)
[2017-03-09 04:00] VITALS: BP 114/71; PULSE 87; RESP 18; TEMP 97; O2SAT 95
[2017-03-09] MEDS: POTASSIUM PHOSPHATE/SODIUM PHOSPHATE 250 MG TAB PO SCH ×3 (05:28→21:30)
[2017-03-09] MEDS: LEVOTHYROXINE SODIUM 88 MCG TAB PEG SCH (05:28)
[2017-03-09] MEDS: SODIUM CHLORIDE 0.9% FLUSH 10 ML FLUSH IV FLUSH SCH ×2 (07:36→21:00)
[2017-03-09] MEDS: DEXT 5%-NACL 0.45% 1000 ML INJ 1,000 ML IV SCH ×2 (07:40→21:32)
[2017-03-09] MEDS: MEGESTROL ACETATE SUSP 400 MG/10 ML CUP PO SCH (07:41)
[2017-03-09] MEDS: RIVAROXABAN 15 MG TAB PO SCH ×2 (07:41→21:29)
[2017-03-09] MEDS: DOCUSATE SODIUM 50 MG/SENNA 8.6 MG TAB PO SCH ×2 (07:41→21:30)
[2017-03-09] MEDS: PRAVASTATIN SOD 40 MG TAB PO SCH (07:41)
[2017-03-09 08:00] VITALS: BP 113/51; PULSE 63; RESP 18; TEMP 98.5; O2SAT 99
[2017-03-09 10:19] VITALS: PULSE 60
[2017-03-09 12:00] VITALS: BP 110/52; PULSE 72; RESP 18; TEMP 98.4; O2SAT 96
[2017-03-09] MEDS: PANTOPRAZOLE SODIUM 40 MG VIAL IV PUSH SCH (12:28)
--- NOTE | 2017-03-09 14:52 | HHI.PR ---
Subjective Remarks Patient is still depressed still has lack of appetite and is not eating afebrile w stable vital signs Objective Vitals Vital Signs Date Time Temp Pulse Resp B/P (MAP) Pulse Ox O2 Delivery O2 Flow Rate FiO2 03/09/17 12:00 98.4 72 18 110/52 (71) 96 03/09/17 10:19 60 03/09/17 08:00 98.5 63 18 113/51 (71) 99 03/09/17 04:00 97.0 87 18 114/71 (85) 95 03/08/17 22:20 21 03/08/17 20:00 98.9 75 18 115/62 (79) 96 03/08/17 19:00 70 03/08/17 16:00 98.2 96 18 121/56 (77) 96 I/O 03/08/17 03/08/17 03/08/17 03/09/17 03/09/17 03/09/17 06:59 14:59 22:59 06:59 14:59 22:59 Intake Total 900 ml 1130 ml 660 ml Balance 900 ml 1130 ml 660 ml Intake Oral 240 ml IV Total 770 ml Tube Feeding 480 ml 240 ml 480 ml Other 180 ml 120 ml 180 ml # Voids 3 1 8 # Bowel Movements 1 Result Diagram: 03/06/17 1008 Objective Remarks AAOx3 PEG C/D/I, abdomen soft NT, ND No edema in lower extremities Flat affect Procedures PEG tube placement 03/02 Medications and IVs Current Medications Medications (Trade) Dose Ordered Sig/Dasia Route Start Time Stop Time Status Last Admin (NS Flush) 2 ml UNSCH PRN IV FLUSH 03/01/17 21:30 (NS Flush) 2 ml BID IV FLUSH 03/02/17 09:00 03/04/17 20:22 (Narcan Inj) 0.4 mg UNSCH PRN IV 03/01/17 21:30 Dextrose/Sodium Chloride 1,000 ml @ 84 mls/hr [id number] IV 03/01/17 21:30 03/09/17 07:40 (Pravachol) 40 mg DAILY PO 03/02/17 13:00 03/09/17 07:41 (Megace Liq) 400 mg DAILY PO 03/02/17 13:00 03/09/17 07:41 (Protonix Inj) 40 mg Q24H IV PUSH 03/02/17 13:00 03/09/17 12:28 (Synthroid) 88 mcg DAILY@0600 PEG 03/03/17 06:00 03/09/17 05:28 (Court-Colace) 1 tab BID PO 03/03/17 12:00 03/09/17 07:41 (Tylenol 650 Mg/ 20 ml Liq) 650 mg Q6H PRN PO 03/04/17 02:45 03/06/17 17:50 (Xarelto) 15 mg BID PO 03/04/17 18:00 03/09/17 07:41 (ZyPREXA) 5 mg HS PO 03/07/17 21:00 03/08/17 20:23 (K-Phos Neutral) 250 mg Q8HR PO 03/08/17 22:00 03/09/17 12:32 (LaMICtal) 200 mg HS PO 03/08/17 21:00 03/08/17 20:24 Urinary Catheter: No Vascular Central Line Catheter: No A/P Problem List: (1) Bipolar disorder with severe depression ICD Code: F31.4 - Bipolar disorder, current episode depressed, severe, without psychotic features Status: Acute (2) Generalized weakness ICD Code: R53.1 - Asthenia Status: Acute (3) Hypothyroidism Status: Chronic (4) Anorexia ICD Code: R63.0 - Anorexia (5) PEG (percutaneous endoscopic gastrostomy) status ICD Code: Z93.1 - Gastrostomy status Status: Acute (6) DVT (deep venous thrombosis) ICD Code: I82.409 - Acute embolism and thrombosis of unspecified deep veins of unspecified lower extremity Status: Chronic (7) Esophageal perforation ICD Code: K22.3 - Perforation of esophagus Status: Acute Assessment and Plan Major depressive disorder The pt is withdrawn. - Treatment per psychiatry, including possible transfer to a facility that provides ECT. clinical trial data manager aware. - neuro checks. Anorexia/ Dysphagia/ Esophageal perforation/ Severe protein calorie malnutrition. 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 GI consulted for dysphagia. The patient is status post EGD with dilation on 02/20 after which the patient showed signs of esophageal perforation on barium swallow. Patient was started on IV ciprofloxacin and IV Flagyl empirically which was later discontinued. CT surgery consulted who recommended conservative management keeping the patient nothing by mouth. Repeat barium swallow on 02/24 showed that the noted apparent leakage and extravasated contrast was no longer present. The patient was started on a diet. GI signed off. 02/27 calorie count results show that patient is having inadequate by mouth intake to keep adequate nutrition. GI reconsulted. Palliative care consult appreciated. PEG tube placed 03/02. - tube feed recommendations requested from dietary. Speech therapy following. - continue Megace. - follow up with palliative care. - Tolerating tube feedings. Hypothyroidism Home regimen Levothyroxine 0.88 mcg/day. TSH level initially 0.222. Repeat level over 8 with low free T4 and total T3. - Continue levothyroxine at 88 mcg PO daily. DVT Patient with lower extremity swelling and Doppler of LLE shows extensive DVT. Patient started on Lovenox SQ at therapeutic dose for DVT. - discontinued Lovenox and transitioned to Xarelto on 03/04. Anemia Iron studies noted. Weakness The pt has not been very mobile. - PT/ OT evaluations requested. PPx: Xarelto Discharge Planning Dc pending acceptance for transfer for ECT. Problem Qualifiers (1) DVT (deep venous thrombosis): Qualified Codes: I82.4Z2 - Acute embolism and thrombosis of unspecified deep veins of left distal lower extremity Collins Ortega MD Mar 09, 2017 14:52
[2017-03-09 15:27] VITALS: BP 98/44; PULSE 70; RESP 16; TEMP 98.4; O2SAT 98
--- NOTE | 2017-03-09 17:12 | HHI.HCPN ---
Subjective/Interval History Pt seen to follow up on comfort, eating, goals. Status post PEG placement last week, Now receiving TF. Also on diet, +megace. Still w fluctuating oral intake. PT, OT following- pt w limited participation. Psych continues to follow. Lamictal increased. Also on Zyprexa. Per psychiatry documentation patient on waiting list for possible transfer to [facility] for ECT treatment. Patient has apparently continued to agree to proceed with. Patient seen in room no visitors present. She is awake, watching TV. She is more interactive with me today than she has been during prior interactions. Flat affect, though she does engage a little bit more than previously. When asked how she is feeling she says the same. Asked why she is not eating much she tells me I don't know I just can't swallow. I did explore with her that she can swallow. ROS essentially negative denies pain, denies nausea or any GI complaints. She endorses that she cannot swallow. She denies any oral discomfort or sore throat. She endorses that she still feels depressed. She tells me that she does not want to that she wants to get better so she can go home in a few days. Asked if her daughters have visited, she indicates that she just spoke to her daughter Marcie on the phone. Advise I will call them to provide an update, she is amenable to this. . Family/friend interactions Following exam call to patient daughter Marcie, provided update on current assessment, conditions, treatment/adjustments per psychiatry. Review with her the psychiatry documentation indicates still planning for possible ECT when transfer available to other facility. Daughter endorses she has seen the patient's mood improving very slightly. Appetite still continues to fluctuate that the daughter seen. Goals remain aggressive, family remain supportive in hopeful that patient can get through acute psychiatric issues and thrive. Advance Directives Living Will: Never completed Health Care Surrogate: Never completed Durable Power of Clinical Administrative Coordinator: Never completed Objective Vital Signs Date Time Temp Pulse Resp B/P (MAP) Pulse Ox O2 Delivery O2 Flow Rate FiO2 03/09/17 12:00 98.4 72 18 110/52 (71) 96 03/09/17 10:19 60 03/09/17 08:00 98.5 63 18 113/51 (71) 99 03/09/17 04:00 97.0 87 18 114/71 (85) 95 8/31/17 22:20 21 03/08/17 20:00 98.9 75 18 115/62 (79) 96 03/08/17 19:00 70 Intake & Output 03/09/17 03/09/17 06:59 18:59 Intake Total 820 ml Balance 820 ml Intake Oral 100 ml Tube Feeding 480 ml Other 240 ml # Voids 8 2 # Bowel Movements 1 Physical Exam CONSTITUTIONAL/GENERAL: This is a frail, thin elderly patient/ flat affect TUBES/LINES/DRAINS: Peripheral IV left upper extremity, PEG tube clamped CARDIOVASCULAR: Regular rate and rhythm without murmur. No JVD. Peripheral pulses symmetric. no peripheral edema. RESPIRATORY/CHEST: Symmetric, unlabored respirations. On room air. Clear to auscultation. Breath sounds equal bilaterally. GASTROINTESTINAL: Abdomen soft, flat, non-tender, nondistended. No palpable masses. No guarding. Bowel sounds present. PEG tube w tube feed /pump @ bedside , PEG clamped.Abd binder present to abdomen. NEUROLOGICAL: Awake appears mostly oriented. Appropriate. Interacts somewhat with examiner. Moves all 4 extremities. Follows simple commands. Flat affect. PSYCHIATRIC: No obvious anxiety/depression--flat affect. Diagnostic Tests Result Diagram: 03/06/17 1008 Assessment and Plan Disease Oriented Problem List: (1) Esophageal perforation (2) Hypothyroidism (3) Depression (4) Malnutrition (5) Weight loss (6) Dysphagia Symptom Scale: (1) Depression (2) Malnutrition Pertinent Non-Medical Issues Psychosocial:Lives with significant other Robin, of 30+ years. Supported by 2 daughters: Nargis Thakur . Completed high school education. Born and raised in [place]. *Of note: recently her known psychiatrists entered long-term prompting her to have to see a new psychiatrist, her significant other recently diagnosed with cancer, and she recently lost a pet. Spiritual:Caodaism-not known if patient would want physicist astrophysics support daughters will ask her Legal:Not clear that the patient is capacitated. She refuses to answer any questions during my exam. She is admitted for depression and long history of bipolar disorder. At times she is alert and oriented, though at other times she is not, not clear she has full insight into conditions. Her depression may limit her ability to make informed decisions. No advanced directives. Per [place] statutes and absence of this document or designated healthcare surrogate appropriate legal proxy would be 2 adult daughters Ethical issues impacting care: Important Contacts dtr Ofe Martins dtr Nargis [phone] Placido Cosme significant other [phone] / [phone] . Prognosis This patient has a long-standing history of bipolar, mental illness. She has in the past couple months been more depressed than usual, now malnourished and refusing food, medications. Has had full medical workup to rule out other etiologies. Minor adjustment to levothyroxine for TSH. Blood cultures thus far negative. Swallow evaluations negative. Decline, FTT May be secondary to depression? If mood can be stabilized, improved and by mouth intake should improve, and patient condition should stabilize. She does remain at risk for further complications and setbacks related to current frail state, and advanced age. . Code Status: Full Code Plan * Legal decision maker:Not clear that the patient is capacitated. Her participation with exam and neuro assessment fluctuates. She is admitted for depression and long history of bipolar disorder. At times she is alert and oriented, though at other times she is not, not clear she has full insight into conditions. Her depression may limit her ability to make informed decisions. No advanced directives. Per [place] statutes and absence of this document or designated healthcare surrogate appropriate legal proxy would be 2 adult daughters * Goals: Patient with limited ability to participate. Not clear if she is capacitated. Daughters continue to express aggressive goals, they would support ongoing treatments to try to help patient overcome current malnutrition and depression to return to her prior self a few months ago. Status post PEG tube last week. * CODE STATUS: Full code * SYMPTOMS: --Depression-long history of bipolar, depression. Had been doing fine until the past couple of months when she has had multiple social stressors, family indicates decline in eating, and steeper depression than usual. Psychiatry following, has been up titrating medications adjusting based on clinical course. Plans for possible transfer to [facility] in [place] for ECT treatment pending availability. --Malnutrition- patient initially reporting dysphagia unable to swallow however AST and barium swallow have not identified any anatomical or pathophysiological issues with dysphagia, patient does not want to eat. Albumin 4 at admission now in the twos. She continues to take minimal by mouth , refuses meds. Has eaten a few things such as family informed when they bought her a double cheeseburger from [employer] she ate it quite well. If mood is stabilized her eating should improve to usual state. GI has been consulted for PEG tube --s/p PEG tube today 03/02, artificial nutrition being provided via feeding tube. Patient appetite still fluctuating; will need continued artificial supplementation until oral intake improves. --Anxiety-daughters endorse patient seems to have intermittent anxiety They wonder if she might benefit from prn anxiety medication advised that I would defer this to psychiatry as she is already on significant psychiatric medications * Palliative care will continue to follow during hospital course as condition evolves, to assist patient/decision-maker with understanding of medical conditions, weighing benefits/burdens of treatment options, for clarification of goals of treatment. Additionally will assist with any symptoms of palliative concern Attestation To help prompt me to consider important information that might be impacting today's encounter and assessment, information from prior notes written by myself or my colleagues may have been "brought forward" into today's note. My signature on this note, however, is an attestation that I personally performed the exam, history, and/or decision-making noted today, and, unless otherwise indicated, the interactions with patient, family, and staff as well as the review of records all occurred today. I also attest that the listed assessment and stated plan reflect my best clinical judgment today based on the combination of historical information, prior notes, and today's exam/ interactions. When time spent is documented, it refers only to time spent today by the signer, or if indicated, combined time spent today by collaborating physician/nurse practitioner. Kristal Hernandez Mar 09, 2017 17:12
[2017-03-09 21:14] VITALS: BP 120/59; PULSE 68; RESP 20; TEMP 98.4; O2SAT 97
[2017-03-09] MEDS: OLANZapine 5 MG TAB PO SCH (21:29)
[2017-03-09] MEDS: lamoTRIgine 100 MG TAB PO SCH (21:30)
[2017-03-10] VITALS (8 sets, daily range): BP systolic 117–139; BP diastolic 55–75; PULSE 67–80; RESP 18–20; TEMP 97.4–98.3; O2SAT 95–98
[2017-03-10] MEDS: LEVOTHYROXINE SODIUM 88 MCG TAB PEG SCH (05:19)
[2017-03-10] MEDS: POTASSIUM PHOSPHATE/SODIUM PHOSPHATE 250 MG TAB PO SCH ×3 (05:19→20:37)
[2017-03-10] MEDS: DEXT 5%-NACL 0.45% 1000 ML INJ 1,000 ML IV SCH ×2 (07:53→20:36)
[2017-03-10] MEDS: PRAVASTATIN SOD 40 MG TAB PO SCH (08:00)
[2017-03-10] MEDS: RIVAROXABAN 15 MG TAB PO SCH ×2 (08:00→20:37)
[2017-03-10] MEDS: MEGESTROL ACETATE SUSP 400 MG/10 ML CUP PO SCH (08:00)
[2017-03-10] MEDS: DOCUSATE SODIUM 50 MG/SENNA 8.6 MG TAB PO SCH ×2 (08:00→20:36)
[2017-03-10] MEDS: SODIUM CHLORIDE 0.9% FLUSH 10 ML FLUSH IV FLUSH SCH ×2 (08:03→20:37)
[2017-03-10] MEDS: PANTOPRAZOLE SODIUM 40 MG VIAL IV PUSH SCH (12:36)
--- NOTE | 2017-03-10 16:38 | HHI.PR ---
Subjective Remarks is at bedside denies cp/sob tolerating tube feedings denies abdominal pain states he brought her food and ate 50% of it Objective Vitals Vital Signs Date Time Temp Pulse Resp B/P (MAP) Pulse Ox O2 Delivery O2 Flow Rate FiO2 03/10/17 16:00 98.0 80 18 139/61 (87) 97 03/10/17 12:00 97.4 73 18 119/55 (76) 98 03/10/17 08:00 71 03/10/17 08:00 97.8 72 18 129/75 (93) 98 03/10/17 06:22 98.3 69 20 129/60 (83) 97 03/10/17 05:37 76 03/10/17 01:47 98.0 67 20 117/58 (77) 97 03/09/17 21:14 98.4 68 20 120/59 (79) 97 03/09/17 18:06 21 I/O 03/09/17 03/09/17 03/09/17 03/10/17 03/10/17 03/10/17 06:59 14:59 22:59 06:59 14:59 22:59 Intake Total 760 ml 1434 ml 955 ml 720 ml Output Total 55.0 ml Balance 760 ml 1434 ml 955 ml 665.0 ml Intake Oral 100 ml IV Total 1074 ml 665 ml Tube Feeding 480 ml 240 ml 240 ml 480 ml Other 180 ml 120 ml 50 ml 240 ml Tube Feeding Residual Discard 55.0 ml # Voids 8 2 2 2 # Bowel Movements 1 0 Result Diagram: 03/06/17 1008 Objective Remarks AAOx3 PEG C/D/I, abdomen soft NT, ND No edema in lower extremities Flat affect Procedures PEG tube placement 03/02 Medications and IVs Current Medications Medications (Trade) Dose Ordered Sig/Dasia Route Start Time Stop Time Status Last Admin (NS Flush) 2 ml UNSCH PRN IV FLUSH 03/01/17 21:30 (NS Flush) 2 ml BID IV FLUSH 03/02/17 09:00 03/04/17 20:22 (Narcan Inj) 0.4 mg UNSCH PRN IV 03/01/17 21:30 Dextrose/Sodium Chloride 1,000 ml @ 84 mls/hr [id number] IV 03/01/17 21:30 03/10/17 07:53 (Pravachol) 40 mg DAILY PO 03/02/17 13:00 03/10/17 08:00 (Megace Liq) 400 mg DAILY PO 03/02/17 13:00 03/10/17 08:00 (Protonix Inj) 40 mg Q24H IV PUSH 03/02/17 13:00 03/10/17 12:36 (Synthroid) 88 mcg DAILY@0600 PEG 03/03/17 06:00 03/10/17 05:19 (Court-Colace) 1 tab BID PO 03/03/17 12:00 03/10/17 08:00 (Tylenol 650 Mg/ 20 ml Liq) 650 mg Q6H PRN PO 03/04/17 02:45 03/06/17 17:50 (Xarelto) 15 mg BID PO 03/04/17 18:00 03/10/17 08:00 (ZyPREXA) 5 mg HS PO 03/07/17 21:00 03/09/17 21:29 (K-Phos Neutral) 250 mg Q8HR PO 03/08/17 22:00 03/10/17 12:37 (LaMICtal) 200 mg HS PO 03/08/17 21:00 03/09/17 21:30 Urinary Catheter: No Vascular Central Line Catheter: No A/P Problem List: (1) Bipolar disorder with severe depression ICD Code: F31.4 - Bipolar disorder, current episode depressed, severe, without psychotic features Status: Acute (2) Generalized weakness ICD Code: R53.1 - Asthenia Status: Acute (3) Hypothyroidism Status: Chronic (4) Anorexia ICD Code: R63.0 - Anorexia (5) PEG (percutaneous endoscopic gastrostomy) status ICD Code: Z93.1 - Gastrostomy status Status: Acute (6) DVT (deep venous thrombosis) ICD Code: I82.409 - Acute embolism and thrombosis of unspecified deep veins of unspecified lower extremity Status: Chronic (7) Esophageal perforation ICD Code: K22.3 - Perforation of esophagus Status: Resolved Assessment and Plan Major depressive disorder The pt is withdrawn. - Treatment per psychiatry, including possible transfer to a facility that provides ECT. manager business process aware. - neuro checks. Anorexia/ Dysphagia/ Esophageal perforation/ Severe protein calorie malnutrition. 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 GI consulted for dysphagia. The patient is status post EGD with dilation on 02/20 after which the patient showed signs of esophageal perforation on barium swallow. Patient was started on IV ciprofloxacin and IV Flagyl empirically which was later discontinued. CT surgery consulted who recommended conservative management keeping the patient nothing by mouth. Repeat barium swallow on 02/24 showed that the noted apparent leakage and extravasated contrast was no longer present. The patient was started on a diet. GI signed off. 02/27 calorie count results show that patient is having inadequate by mouth intake to keep adequate nutrition. GI reconsulted. Palliative care consult appreciated. PEG tube placed 03/02. - tube feed recommendations requested from dietary. Speech therapy following. - continue Megace. - follow up with palliative care. - Tolerating tube feedings. Hypothyroidism Home regimen Levothyroxine 0.88 mcg/day. TSH level initially 0.222. Repeat level over 8 with low free T4 and total T3. - Continue levothyroxine at 88 mcg PO daily. DVT Patient with lower extremity swelling and Doppler of LLE shows extensive DVT. Patient started on Lovenox SQ at therapeutic dose for DVT. - discontinued Lovenox and transitioned to Xarelto on 03/04. - No evidence of bleeding. Anemia Iron studies noted 03/10 Will start patient on ferrous sulfate. Weakness The pt has not been very mobile. - PT/ OT evaluations requested. PPx: Xarelto Discharge Planning Dc pending acceptance for transfer for ECT. Problem Qualifiers (1) DVT (deep venous thrombosis): Qualified Codes: I82.4Z2 - Acute embolism and thrombosis of unspecified deep veins of left distal lower extremity Collins Ortega MD Mar 10, 2017 16:38
[2017-03-10] MEDS: lamoTRIgine 100 MG TAB PO SCH (20:37)
[2017-03-10] MEDS: OLANZapine 5 MG TAB PO SCH (20:38)
[2017-03-11] VITALS (8 sets, daily range): BP systolic 115–145; BP diastolic 53–77; PULSE 54–81; RESP 16–18; TEMP 97.7–99.7; O2SAT 96–100
[2017-03-11] MEDS: POTASSIUM PHOSPHATE/SODIUM PHOSPHATE 250 MG TAB PO SCH ×3 (06:37→21:50)
[2017-03-11] MEDS: LEVOTHYROXINE SODIUM 88 MCG TAB PEG SCH (06:37)
[2017-03-11] MEDS: DEXT 5%-NACL 0.45% 1000 ML INJ 1,000 ML IV SCH ×2 (07:55→17:16)
[2017-03-11] MEDS: MEGESTROL ACETATE SUSP 400 MG/10 ML CUP PO SCH (07:59)
[2017-03-11] MEDS: DOCUSATE SODIUM 50 MG/SENNA 8.6 MG TAB PO SCH ×2 (08:00→21:49)
[2017-03-11] MEDS: PRAVASTATIN SOD 40 MG TAB PO SCH (08:00)
[2017-03-11] MEDS: RIVAROXABAN 15 MG TAB PO SCH ×2 (08:00→21:50)
[2017-03-11] MEDS: SODIUM CHLORIDE 0.9% FLUSH 10 ML FLUSH IV FLUSH SCH ×2 (08:00→21:00)
[2017-03-11] MEDS: PANTOPRAZOLE SODIUM 40 MG VIAL IV PUSH SCH (12:39)
[2017-03-11] MEDS: FERROUS SULFATE 325 MG (65 MG ELEMENTAL IRON) TAB PO SCH ×2 (12:39→16:52)
--- NOTE | 2017-03-11 15:39 | HHI.PR ---
Subjective Remarks Follow up depression, anorexia, severe calorie malnutrition, and generalized weakness. Patient seen and examined today. Lying in bed with eyes closed comfortably, in no apparent distress. Opens eyes to voice. Speech clear. Flat affect. Denies any new acute events overnight. Poor appetite. Denies any pain. Denies any recent fever, chills, cough, shortness of breath, abdominal pain, nausea, vomiting, diarrhea or dysuria. Objective Vitals Vital Signs Date Time Temp Pulse Resp B/P (MAP) Pulse Ox O2 Delivery O2 Flow Rate FiO2 03/11/17 12:00 98.3 79 16 115/56 (75) 97 03/11/17 09:30 69 03/11/17 08:00 98.6 67 16 126/53 (77) 100 03/11/17 04:00 97.7 71 18 126/60 (82) 97 03/11/17 01:00 98.6 81 18 145/65 (91) 98 03/10/17 22:12 97.6 78 18 133/63 (86) 95 03/10/17 20:00 76 03/10/17 16:00 98.0 80 18 139/61 (87) 97 I/O 03/10/17 03/10/17 03/10/17 03/11/17 03/11/17 03/11/17 07:00 15:00 23:00 07:00 15:00 23:00 Intake Total 665 ml 720 ml 2866 ml 846 ml 660 ml Output Total 55.0 ml Balance 665 ml 665.0 ml 2866 ml 846 ml 660 ml IV Total 665 ml 2146 ml 846 ml Tube Feeding 480 ml 480 ml 480 ml Other 240 ml 240 ml 180 ml Tube Feeding Residual Discard 55.0 ml # Voids 2 2 # Bowel Movements 0 Objective Remarks GENERAL: Cachexic female patient, resting comfortably in bed in nad. HEENT: NC, AT. CARDIOVASCULAR: Regular rate and rhythm without murmurs, gallops, or rubs. RESPIRATORY: Breath sounds equal bilaterally. No accessory muscle use. GASTROINTESTINAL: Abdomen soft. Site around PEG tube appears clean, dressing d/ i. MUSCULOSKELETAL: No cyanosis, or edema. EXTREMITIES: No lower extremity edema. NEURO: Awake and alert. No gross deficits. PSYCH: Flattened affect. Procedures PEG tube placement 03/02 A/P Problem List: (1) Bipolar disorder with severe depression ICD Code: F31.4 - Bipolar disorder, current episode depressed, severe, without psychotic features Status: Acute (2) Generalized weakness ICD Code: R53.1 - Asthenia Status: Acute (3) Hypothyroidism Status: Chronic (4) Anorexia ICD Code: R63.0 - Anorexia (5) PEG (percutaneous endoscopic gastrostomy) status ICD Code: Z93.1 - Gastrostomy status Status: Acute (6) DVT (deep venous thrombosis) ICD Code: I82.409 - Acute embolism and thrombosis of unspecified deep veins of unspecified lower extremity Status: Chronic (7) Esophageal perforation ICD Code: K22.3 - Perforation of esophagus Status: Resolved Assessment and Plan Major depressive disorder - Treatment per psychiatry, including possible transfer to a facility that provides ECT. terminal manager aware. - Continue neuro checks. - Medication regimen includes Zyprexa, Lamictal. 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 GI consulted for dysphagia. - Status post EGD with dilation on 02/20 after which the patient showed signs of esophageal perforation on barium swallow. Started on IV ciprofloxacin and IV Flagyl empirically which was later discontinued. CT surgery consulted who recommended conservative management keeping the patient nothing by mouth. Repeat barium swallow on 02/24 showed that the noted apparent leakage and extravasated contrast was no longer present. The patient was started on a diet. GI signed off. 02/27 calorie count results show that patient is having inadequate by mouth intake to keep adequate nutrition. GI reconsulted. Palliative care consulted and follow, appreciate input. PEG tube placed 03/02. - Tube feed recommendations requested from dietary. Speech therapy following. - Continue Megace. - Tolerating tube feedings. - - PT/ OT evaluations requested. Hypothyroidism - Continue home regimen Levothyroxine 0.88 mcg/day. TSH level initially 0.222. Repeat level over 8 with low free T4 and total T3. DVT - LLE shows extensive DVT. Patient started on Lovenox SQ at therapeutic dose for DVT. - discontinued Lovenox and transitioned to Xarelto on 03/04. - No evidence of bleeding. Iron deficiency anemia - Iron studies noted - Continue ferrous sulfate 325 mg PO BID. DVT Prophylaxis: Xarelto Discharge Planning Dc pending acceptance for transfer for ECT. Problem Qualifiers (1) DVT (deep venous thrombosis): Qualified Codes: I82.4Z2 - Acute embolism and thrombosis of unspecified deep veins of left distal lower extremity Winsome Webb Mar 11, 2017 15:39
[2017-03-11] MEDS: lamoTRIgine 100 MG TAB PO SCH (21:49)
[2017-03-11] MEDS: OLANZapine 5 MG TAB PO SCH (21:50)
[2017-03-12] VITALS (7 sets, daily range): BP systolic 107–154; BP diastolic 51–69; PULSE 74–92; RESP 16–18; TEMP 97.8–98.9; O2SAT 97–98
[2017-03-12] MEDS: DEXT 5%-NACL 0.45% 1000 ML INJ 1,000 ML IV SCH (05:57)
[2017-03-12] MEDS: LEVOTHYROXINE SODIUM 88 MCG TAB PEG SCH (06:01)
[2017-03-12] MEDS: POTASSIUM PHOSPHATE/SODIUM PHOSPHATE 250 MG TAB PO SCH ×3 (06:01→22:56)
[2017-03-12] MEDS: SODIUM CHLORIDE 0.9% FLUSH 10 ML FLUSH IV FLUSH SCH ×2 (07:40→20:14)
[2017-03-12] MEDS: DOCUSATE SODIUM 50 MG/SENNA 8.6 MG TAB PO SCH ×2 (07:42→20:14)
[2017-03-12] MEDS: PRAVASTATIN SOD 40 MG TAB PO SCH (07:42)
[2017-03-12] MEDS: RIVAROXABAN 15 MG TAB PO SCH ×2 (07:42→20:13)
[2017-03-12] MEDS: MEGESTROL ACETATE SUSP 400 MG/10 ML CUP PO SCH (07:42)
[2017-03-12] MEDS: FERROUS SULFATE 325 MG (65 MG ELEMENTAL IRON) TAB PO SCH ×2 (12:10→16:54)
[2017-03-12] MEDS: PANTOPRAZOLE SODIUM 40 MG VIAL IV PUSH SCH (12:10)
--- NOTE | 2017-03-12 15:37 | HHI.PR ---
Subjective Remarks Still depressed no complaints still no appetite and not eating Objective Vitals Vital Signs Date Time Temp Pulse Resp B/P (MAP) Pulse Ox O2 Delivery O2 Flow Rate FiO2 03/12/17 12:25 98.9 92 16 107/51 (69) 97 03/12/17 08:38 77 03/12/17 08:21 98.5 81 16 148/67 (94) 98 03/12/17 04:40 98.7 75 17 133/65 (87) 97 03/12/17 00:30 97.8 82 17 154/69 (97) 98 03/11/17 20:30 98.1 73 17 125/54 (77) 98 03/11/17 20:00 70 03/11/17 16:00 99.7 72 16 123/58 (79) 99 I/O 03/11/17 03/11/17 03/11/17 03/12/17 03/12/17 03/12/17 06:59 14:59 22:59 06:59 14:59 22:59 Intake Total 846 ml 660 ml 2683 ml 948 ml 630 ml Output Total 60.0 ml Balance 846 ml 660 ml 2623.0 ml 948 ml 630 ml Intake Oral 340 ml IV Total 846 ml 2083 ml 608 ml Tube Feeding 480 ml 480 ml 480 ml Other 180 ml 120 ml 150 ml Tube Feeding Residual Discard 60.0 ml # Voids 1 7 # Bowel Movements 1 Objective Remarks AAOx3 PEG C/D/I, abdomen soft NT, ND No edema in lower extremities Flat affect Procedures PEG tube placement 03/02 Medications and IVs Current Medications Medications (Trade) Dose Ordered Sig/Dasia Route Start Time Stop Time Status Last Admin (NS Flush) 2 ml UNSCH PRN IV FLUSH 03/01/17 21:30 (NS Flush) 2 ml BID IV FLUSH 03/02/17 09:00 03/04/17 20:22 (Narcan Inj) 0.4 mg UNSCH PRN IV 03/01/17 21:30 Dextrose/Sodium Chloride 1,000 ml @ 84 mls/hr [id number] IV 03/01/17 21:30 03/12/17 05:57 (Pravachol) 40 mg DAILY PO 03/02/17 13:00 03/12/17 07:42 (Megace Liq) 400 mg DAILY PO 03/02/17 13:00 03/12/17 07:42 (Protonix Inj) 40 mg Q24H IV PUSH 03/02/17 13:00 03/12/17 12:10 (Synthroid) 88 mcg DAILY@0600 PEG 03/03/17 06:00 03/12/17 06:01 (Court-Colace) 1 tab BID PO 03/03/17 12:00 03/12/17 07:42 (Tylenol 650 Mg/ 20 ml Liq) 650 mg Q6H PRN PO 03/04/17 02:45 03/06/17 17:50 (Xarelto) 15 mg BID PO 03/04/17 18:00 03/12/17 07:42 (ZyPREXA) 5 mg HS PO 03/07/17 21:00 03/11/17 21:50 (K-Phos Neutral) 250 mg Q8HR PO 03/08/17 22:00 03/12/17 12:10 (LaMICtal) 200 mg HS PO 03/08/17 21:00 03/11/17 21:49 (Ferrous Sulfate) 325 mg BID@ PO 03/11/17 12:00 03/12/17 12:10 Urinary Catheter: No Vascular Central Line Catheter: No A/P Problem List: (1) Bipolar disorder with severe depression ICD Code: F31.4 - Bipolar disorder, current episode depressed, severe, without psychotic features Status: Acute (2) Generalized weakness ICD Code: R53.1 - Asthenia Status: Acute (3) Hypothyroidism Status: Chronic (4) Anorexia ICD Code: R63.0 - Anorexia (5) PEG (percutaneous endoscopic gastrostomy) status ICD Code: Z93.1 - Gastrostomy status Status: Acute (6) DVT (deep venous thrombosis) ICD Code: I82.409 - Acute embolism and thrombosis of unspecified deep veins of unspecified lower extremity Status: Chronic (7) Esophageal perforation ICD Code: K22.3 - Perforation of esophagus Status: Resolved Assessment and Plan Major depressive disorder The pt is withdrawn. - Treatment per psychiatry, including possible transfer to a facility that provides ECT. project construction assistant manager aware. - neuro checks. Anorexia/ Dysphagia/ Esophageal perforation/ Severe protein calorie malnutrition. 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 GI consulted for dysphagia. The patient is status post EGD with dilation on 02/20 after which the patient showed signs of esophageal perforation on barium swallow. Patient was started on IV ciprofloxacin and IV Flagyl empirically which was later discontinued. CT surgery consulted who recommended conservative management keeping the patient nothing by mouth. Repeat barium swallow on 02/24 showed that the noted apparent leakage and extravasated contrast was no longer present. The patient was started on a diet. GI signed off. 02/27 calorie count results show that patient is having inadequate by mouth intake to keep adequate nutrition. GI reconsulted. Palliative care consult appreciated. PEG tube placed 03/02. - tube feed recommendations requested from dietary. Speech therapy following. - continue Megace. - follow up with palliative care. - Tolerating tube feedings. 03/12 Dc IV fluids. Will start free water via PEG. Hypothyroidism Home regimen Levothyroxine 0.88 mcg/day. TSH level initially 0.222. Repeat level over 8 with low free T4 and total T3. - Continue levothyroxine at 88 mcg PO daily. DVT Patient with lower extremity swelling and Doppler of LLE shows extensive DVT. Patient started on Lovenox SQ at therapeutic dose for DVT. - discontinued Lovenox and transitioned to Xarelto on 03/04. - No evidence of bleeding. Anemia Iron studies noted Continue ferrous sulfate Monitor CBC Weakness The pt has not been very mobile. - PT/ OT evaluations requested. PPx: Xarelto Discharge Planning Dc pending acceptance for transfer for ECT. Problem Qualifiers (1) DVT (deep venous thrombosis): Qualified Codes: I82.4Z2 - Acute embolism and thrombosis of unspecified deep veins of left distal lower extremity Collins Ortega MD Mar 12, 2017 15:37
[2017-03-12] MEDS: FREE WATER G-TUBE SCH (16:54)
[2017-03-12 17:07] LABS: ALT (GPT) 25 U/L (10-53); ANION GAP 8 MEQ/L (5-15); AST (GOT) 14 U/L (15-37); BICARBONATE 26.3 MEQ/L (21.0-32.0); BLOOD UREA NITROGEN 19 MG/DL (7-18); CHLORIDE 108 MEQ/L (98-107); GLOMERULAR FILTRATION RATE 90 ML/MIN (>89); POTASSIUM 4.1 MEQ/L (3.5-5.1); SODIUM (NA) 142 MEQ/L (136-145)
[2017-03-12 17:09] LABS: ALKALINE PHOSPHATASE 64 U/L (45-117); TOTAL BILIRUBIN ADULT 0.2 MG/DL (0.2-1.0)
[2017-03-12] MEDS: OLANZapine 5 MG TAB PO SCH (20:13)
[2017-03-12] MEDS: lamoTRIgine 100 MG TAB PO SCH (20:14)
[2017-03-13] VITALS (8 sets, daily range): BP systolic 113–124; BP diastolic 52–59; PULSE 69–84; RESP 17–18; TEMP 97.6–98.8; O2SAT 95–97
[2017-03-13] MEDS: FREE WATER G-TUBE SCH ×4 (01:10→17:24)
[2017-03-13] MEDS: ACETAMINOPHEN 650 MG/20.3 ML UDC PO PRN (01:11)
[2017-03-13] MEDS: POTASSIUM PHOSPHATE/SODIUM PHOSPHATE 250 MG TAB PO SCH ×3 (05:59→21:04)
[2017-03-13] MEDS: LEVOTHYROXINE SODIUM 88 MCG TAB PEG SCH (05:59)
[2017-03-13] MEDS: DOCUSATE SODIUM 50 MG/SENNA 8.6 MG TAB PO SCH ×2 (08:11→21:04)
[2017-03-13] MEDS: MEGESTROL ACETATE SUSP 400 MG/10 ML CUP PO SCH (08:11)
[2017-03-13] MEDS: RIVAROXABAN 15 MG TAB PO SCH ×2 (08:11→21:04)
[2017-03-13] MEDS: PRAVASTATIN SOD 40 MG TAB PO SCH (08:11)
[2017-03-13] MEDS: SODIUM CHLORIDE 0.9% FLUSH 10 ML FLUSH IV FLUSH SCH ×2 (08:12→21:04)
[2017-03-13 11:29] LABS: HEMATOCRIT 31.5 % (35.0-46.0); MEAN CORPUSCULAR HEMOGLOBIN 28.7 PG (27.0-34.0); MEAN CORPUSCULAR HGB CONC 32.6 % (32.0-36.0); PLATELET COUNT 296 TH/MM3 (150-450); RED BLOOD COUNT 3.57 MIL/MM3 (4.00-5.30); RED CELL DISTRIBUTION WIDTH 14.9 % (11.6-17.2); REVIEW FLAG FINAL; WHITE BLOOD COUNT 9.1 TH/MM3 (4.0-11.0)
[2017-03-13 11:50] LABS: ALT (GPT) 22 U/L (10-53); ANION GAP 6 MEQ/L (5-15); AST (GOT) 11 U/L (15-37); BLOOD UREA NITROGEN 20 MG/DL (7-18); CHLORIDE 106 MEQ/L (98-107); GLOMERULAR FILTRATION RATE 101 ML/MIN (>89); MAGNESIUM 2.1 MG/DL (1.5-2.5); POTASSIUM 3.9 MEQ/L (3.5-5.1); SODIUM (NA) 139 MEQ/L (136-145)
[2017-03-13] MEDS: FERROUS SULFATE 325 MG (65 MG ELEMENTAL IRON) TAB PO SCH ×2 (11:50→17:27)
[2017-03-13] MEDS: PANTOPRAZOLE SODIUM 40 MG VIAL IV PUSH SCH (11:51)
[2017-03-13 11:52] LABS: ALKALINE PHOSPHATASE 64 U/L (45-117); TOTAL BILIRUBIN ADULT 0.2 MG/DL (0.2-1.0)
--- NOTE | 2017-03-13 16:15 | HHI.PR ---
Subjective Remarks Patient still feels depressed Patient states has no appetite denies fevers/chills denies sob/cp Objective Vitals Vital Signs Date Time Temp Pulse Resp B/P (MAP) Pulse Ox O2 Delivery O2 Flow Rate FiO2 03/13/17 12:35 98.0 74 18 113/52 (72) 97 03/13/17 11:00 75 03/13/17 08:00 98.4 72 18 124/59 (80) 97 03/13/17 05:10 97.6 69 18 119/57 (77) 96 03/13/17 01:07 98.2 70 18 115/56 (75) 97 03/13/17 00:10 74 03/12/17 20:45 98.3 74 18 114/53 (73) I/O 03/12/17 03/12/17 03/12/17 03/13/17 03/13/17 03/13/17 07:00 15:00 23:00 07:00 15:00 23:00 Intake Total 948 ml 630 ml 800 ml 990 ml 900 ml Output Total 10.0 ml Balance 948 ml 630 ml 800 ml 990 ml 890.0 ml Intake Oral 340 ml 60 ml 350 ml 480 ml IV Total 608 ml 300 ml Tube Feeding 480 ml 240 ml 240 ml 240 ml Other 150 ml 200 ml 400 ml 180 ml Tube Feeding Residual Discard 10.0 ml # Voids 7 2 4 # Bowel Movements 1 1 1 Result Diagram: 03/13/17 1042 03/13/17 1042 Objective Remarks AAOx3 PEG C/D/I, abdomen soft NT, ND No edema in lower extremities Flat affect Procedures PEG tube placement 03/02 Medications and IVs Current Medications Medications (Trade) Dose Ordered Sig/Dasia Route Start Time Stop Time Status Last Admin (NS Flush) 2 ml UNSCH PRN IV FLUSH 03/01/17 21:30 (NS Flush) 2 ml BID IV FLUSH 03/02/17 09:00 03/13/17 08:12 (Narcan Inj) 0.4 mg UNSCH PRN IV 03/01/17 21:30 (Pravachol) 40 mg DAILY PO 03/02/17 13:00 03/13/17 08:11 (Megace Liq) 400 mg DAILY PO 03/02/17 13:00 03/13/17 08:11 (Protonix Inj) 40 mg Q24H IV PUSH 03/02/17 13:00 03/13/17 11:51 (Synthroid) 88 mcg DAILY@0600 PEG 03/03/17 06:00 03/13/17 05:59 (Coutr-Colace) 1 tab BID PO 03/03/17 12:00 03/13/17 08:11 (Tylenol 650 Mg/ 20 ml Liq) 650 mg Q6H PRN PO 03/04/17 02:45 03/13/17 01:11 (Xarelto) 15 mg BID PO 03/04/17 18:00 03/13/17 08:11 (ZyPREXA) 5 mg HS PO 03/07/17 21:00 03/12/17 20:13 (K-Phos Neutral) 250 mg Q8HR PO 03/08/17 22:00 03/13/17 12:54 (LaMICtal) 200 mg HS PO 03/08/17 21:00 03/12/17 20:14 (Ferrous Sulfate) 325 mg BID@ PO 03/11/17 12:00 03/13/17 11:50 (Free Water) VOLUME: 200 ML Q6HR G-TUBE 03/12/17 18:00 03/13/17 11:51 Urinary Catheter: No Vascular Central Line Catheter: No A/P Problem List: (1) Bipolar disorder with severe depression ICD Code: F31.4 - Bipolar disorder, current episode depressed, severe, without psychotic features Status: Acute (2) Generalized weakness ICD Code: R53.1 - Asthenia Status: Acute (3) Hypothyroidism Status: Chronic (4) Anorexia ICD Code: R63.0 - Anorexia (5) PEG (percutaneous endoscopic gastrostomy) status ICD Code: Z93.1 - Gastrostomy status Status: Acute (6) DVT (deep venous thrombosis) ICD Code: I82.409 - Acute embolism and thrombosis of unspecified deep veins of unspecified lower extremity Status: Chronic (7) Esophageal perforation ICD Code: K22.3 - Perforation of esophagus Status: Resolved Assessment and Plan Major depressive disorder The pt is withdrawn. - Treatment per psychiatry, including possible transfer to a facility that provides ECT. mall manager aware. - neuro checks. Anorexia/ Dysphagia/ Esophageal perforation/ Severe protein calorie malnutrition. BMI of 16, weak child adolescent care, muscle waisting, bitemporal waisting. GI consulted for dysphagia. The patient is status post EGD with dilation on 02/20 after which the patient showed signs of esophageal perforation on barium swallow. Patient was started on IV ciprofloxacin and IV Flagyl empirically which was later discontinued. CT surgery consulted who recommended conservative management keeping the patient nothing by mouth. Repeat barium swallow on 02/24 showed that the noted apparent leakage and extravasated contrast was no longer present. The patient was started on a diet. GI signed off. 02/27 calorie count results show that patient is having inadequate by mouth intake to keep adequate nutrition. GI reconsulted. Palliative care consult appreciated. PEG tube placed 03/02. - tube feed recommendations requested from dietary. Speech therapy following. - continue Megace. - follow up with palliative care. - Tolerating tube feedings. 03/12 Dc IV fluids. Will start free water via PEG. 03/13 continue free water via PEG - sodium improved from 142 to 139. monitor bmp. Hypothyroidism Home regimen Levothyroxine 0.88 mcg/day. TSH level initially 0.222. Repeat level over 8 with low free T4 and total T3. - Continue levothyroxine at 88 mcg PO daily. DVT Patient with lower extremity swelling and Doppler of LLE shows extensive DVT. Patient started on Lovenox SQ at therapeutic dose for DVT. - discontinued Lovenox and transitioned to Xarelto on 03/04. - No evidence of bleeding. Anemia Iron studies noted Continue ferrous sulfate Monitor CBC Weakness The pt has not been very mobile. - PT/ OT evaluations requested. PPx: Xarelto Discharge Planning Dc pending acceptance for transfer for ECT. Discussed with mall manager. Problem Qualifiers (1) DVT (deep venous thrombosis): Qualified Codes: I82.4Z2 - Acute embolism and thrombosis of unspecified deep veins of left distal lower extremity Collins Ortega MD Mar 13, 2017 16:15
[2017-03-13] MEDS: lamoTRIgine 100 MG TAB PO SCH (21:04)
[2017-03-13] MEDS: OLANZapine 5 MG TAB PO SCH (21:04)
[2017-03-14] VITALS (7 sets, daily range): BP systolic 116–128; BP diastolic 58–76; PULSE 68–80; RESP 17–20; TEMP 97.2–98.9; O2SAT 95–99
[2017-03-14] MEDS: FREE WATER G-TUBE SCH ×4 (00:44→17:25)
[2017-03-14] MEDS: LEVOTHYROXINE SODIUM 88 MCG TAB PEG SCH (05:25)
[2017-03-14] MEDS: POTASSIUM PHOSPHATE/SODIUM PHOSPHATE 250 MG TAB PO SCH ×2 (05:25→12:05)
[2017-03-14] MEDS: RIVAROXABAN 15 MG TAB PO SCH ×2 (08:04→08:12)
[2017-03-14] MEDS: PRAVASTATIN SOD 40 MG TAB PO SCH ×2 (08:04→08:12)
[2017-03-14] MEDS: MEGESTROL ACETATE SUSP 400 MG/10 ML CUP PO SCH ×2 (08:04→08:12)
[2017-03-14] MEDS: DOCUSATE SODIUM 50 MG/SENNA 8.6 MG TAB PO SCH ×2 (08:04→08:12)
[2017-03-14] MEDS: SODIUM CHLORIDE 0.9% FLUSH 10 ML FLUSH IV FLUSH SCH (08:05)
[2017-03-14] MEDS: PANTOPRAZOLE SODIUM 40 MG VIAL IV PUSH SCH (11:42)
[2017-03-14] MEDS: FERROUS SULFATE 325 MG (65 MG ELEMENTAL IRON) TAB PO SCH ×2 (11:42→16:22)
[2017-03-14] MEDS ORDERED: ACET650S PO (14:43)
[2017-03-14] MEDS ORDERED: SYNT88TA PEG (14:43)
[2017-03-14] MEDS ORDERED: FERR325T20 PO (14:43)
[2017-03-14] MEDS ORDERED: XARE15TA PO (14:43)
--- NOTE | 2017-03-14 14:46 | HHI.DCPOC ---
Discharge Care Plan Diagnosis: (1) Bipolar disorder with severe depression (2) Gait disturbance (3) Generalized weakness (4) DVT (deep venous thrombosis) (5) Esophageal perforation (6) Weight loss (7) Malnutrition (8) Hypothyroidism (9) Depression (10) Anorexia Goals to Promote Your Health * To prevent worsening of your condition and complications * To maintain your health at the optimal level Directions to Meet Your Goals Take your medications as prescribed Follow your dietary instruction Follow activity as directed Keep your appointments as scheduled Take your immunizations and boosters as scheduled If your symptoms worsen call your PCP, if no PCP go to Urgent Care Center or Emergency Room Smoking is Dangerous to Your Health. Avoid second hand smoke Call the 24-hour hour crisis hotline for domestic abuse at Collins Ortega MD Mar 14, 2017 14:46
[2017-03-14] MEDS ORDERED: Free Water G-TUBE (14:51)
--- NOTE | 2017-03-14 15:01 | HHI.DS ---
Discharge Summary Admission Date Mar 01, 2017 at 18:35 Discharge Date: Mar 14, 2017 Admitting Diagnosis (1) Bipolar disorder with severe depression ICD Code: F31.4 - Bipolar disorder, current episode depressed, severe, without psychotic features Diagnosis: Principal Status: Acute (2) Generalized weakness ICD Code: R53.1 - Asthenia Diagnosis: Principal Status: Acute (3) Hypothyroidism Diagnosis: Secondary Status: Chronic (4) Anorexia ICD Code: R63.0 - Anorexia Diagnosis: Principal (5) PEG (percutaneous endoscopic gastrostomy) status ICD Code: Z93.1 - Gastrostomy status Diagnosis: Secondary Status: Acute (6) DVT (deep venous thrombosis) ICD Code: I82.409 - Acute embolism and thrombosis of unspecified deep veins of unspecified lower extremity Diagnosis: Principal Status: Chronic (7) Esophageal perforation ICD Code: K22.3 - Perforation of esophagus Diagnosis: Principal Status: Resolved Procedures PEG tube placement 03/02 Brief History - From Admission The patient is a 71-year-old female with a past medical history of depression who is being treated in the medical psych unit who was transferred to the main hospital because she has not been eating. Psychiatry has been considering starting the patient on ECT treatment, however, that might take quite some time in order to initiate. The patient says she does not want food and that she has no appetite. She says that everything hurts her and apparently food makes that worse. She was evaluated by gastroenterology who performed an EGD. There was an air leak following the EGD and cardiothoracic surgery was consulted. They recommended conservative management and monitoring. Repeat barium study showed resolution of perforation. The patient continued to avoid by mouth intake. Gastroenterology was consulted regarding PEG tube placement. The patient's family was agreeable with pursuing PEG tube placement. Palliative care was also consulted and continue to follow the patient to help manage with goals of care. The patient did have a PEG tube placed 03/02/17. Psychiatry will continue to follow the patient on the medical floor. Discussed with the patient 's nurse who stated that the patient did not speak all morning. The nurse did not have any acute concerns otherwise. CBC/BMP: 03/13/17 1042 03/13/17 1042 Significant Findings Laboratory Tests Test 03/12/17 16:09 03/13/17 10:42 Blood Urea Nitrogen 19 MG/DL (7-18) 20 MG/DL (7-18) Albumin 2.7 GM/DL (3.4-5.0) 2.7 GM/DL (3.4-5.0) Calcium Level 8.4 MG/DL (8.5-10.1) Aspartate Amino Transf (AST/SGOT) 14 U/L (15-37) 11 U/L (15-37) Chloride Level 108 MEQ/L (98-107) Red Blood Count 3.57 MIL/MM3 (4.00-5.30) Hemoglobin 10.2 GM/DL (11.6-15.3) Hematocrit 31.5 % (35.0-46.0) Random Glucose 148 MG/DL (74-106) Total Protein 6.3 GM/DL (6.4-8.2) PE at Discharge GENERAL: Cachexic female patient, resting comfortably in bed in nad. HEENT: NC, AT. CARDIOVASCULAR: Regular rate and rhythm without murmurs, gallops, or rubs. RESPIRATORY: Breath sounds equal bilaterally. No accessory muscle use. GASTROINTESTINAL: Abdomen soft. Site around PEG tube appears clean, dressing d/ i. MUSCULOSKELETAL: No cyanosis, or edema. EXTREMITIES: No lower extremity edema. NEURO: Awake and alert. No gross deficits. PSYCH: Flattened affect. Pt update on day of discharge Patient still without much appetite, denies abdominal pain, nausea or vomiting. Hospital Course Major depressive disorder Patient withdrawn throughout hospitalization. Psychiatry consulted. Psychiatry sought transfer to facility for ECT treatment but several facilities refused patient. Anorexia/ Dysphagia/ Esophageal perforation/ Severe protein calorie malnutrition. 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 GI consulted for dysphagia. The patient is status post EGD with dilation on 02/20 after which the patient showed signs of esophageal perforation on barium swallow. Patient was started on IV ciprofloxacin and IV Flagyl empirically which was later discontinued. CT surgery consulted who recommended conservative management keeping the patient nothing by mouth. Repeat barium swallow on 02/24 showed that the noted apparent leakage and extravasated contrast was no longer present. The patient was started on a diet. GI signed off. 02/27 calorie count results show that patient is having inadequate by mouth intake to keep adequate nutrition. GI reconsulted. Palliative care consult appreciated. PEG tube placed 03/02. - tube feed recommendations requested from dietary. Speech therapy also consulted. - Started on Megace. - Palliative care consulted. - Tolerating tube feedings. 03/12 IV fluids discontinued. Free water via PEG. 03/13 continue free water via PEG - sodium improved from 142 to 139. monitor bmp. Hypothyroidism Home regimen Levothyroxine 0.88 mcg/day. TSH level initially 0.222. Repeat level over 8 with low free T4 and total T3. - Continue levothyroxine at 88 mcg PO daily. DVT Patient with lower extremity swelling and Doppler of LLE shows extensive DVT. Patient started on Lovenox SQ at therapeutic dose for DVT. - discontinued Lovenox and transitioned to Xarelto on 03/04. - No evidence of bleeding. Anemia Iron studies noted Ferrous sulfate given Monitor CBC Weakness The pt has not been very mobile. - PT/ OT evaluations requested - recommended SNF. PPx: Xarelto Pt Condition on Discharge: Stable Discharge Disposition: Discharge to SNF Discharge Time: > 30 minutes Discharge Instructions DIET: Follow Instructions for: Weight Management, On Tube Feeding Additional Diet Instructions: Jevity 1.5 240cc at breakfast, lunch, dinner, and hs Activities you can perform: See Additionl Instruction Other Activity Instructions: OOB with assistance Follow up PT recommendations Ambulation with rolling walker Follow up Referrals: PCP Follow-up - As Per Protocol Psychiatry Adult - As Per Protocol New Medications: Acetaminophen (Acetaminophen) 650 Mg/20.3 Ml Solution 650 MG PO Q6H PRN for pain 1-10/fever > 100.4, #30 TAB Ferrous Sulfate (Ferosul) 325 Mg (65 Mg Iron) Tablet 325 MG PO BID@12,17 for anemia, #62 TAB Levothyroxine (Synthroid) 88 Mcg Tab 88 MCG PEG DAILY@0600 for Thyroid, #30 TAB Rivaroxaban (Xarelto) 15 Mg Tab 15 MG PO BID for Blood Clot Prevention, #62 TAB [Free Water] () 1 FLUSH 200 ML G-TUBE Q6HR for anorexia/hydration Continued Medications: Aripiprazole (Abilify) 20 Mg Tab 20 MG PO DAILY, #30 TAB 0 Refills Lamotrigine (Lamictal) 150 Mg Tab 150 MG PO HS for BIPOLAR, #60 TAB 0 Refills Nortriptyline (Nortriptyline) 25 Mg Cap 25 MG PO HS for Depression Control, #30 CAP 0 Refills Pravastatin (Pravachol) 40 Mg Tab 40 MG PO DAILY for Cholesterol Management, #30 TAB 0 Refills Propranolol (Propranolol) 10 Mg Tab 10 MG PO BID for Anxiety, #60 TAB 0 Refills Discontinued Medications: Levothyroxine (Levothyroxine) 88 Mcg Tab 88 MCG PO DAILY for Thyroid, #30 TAB 0 Refills Collins Ortega MD Mar 14, 2017 15:01
== END 2017-03-14 18:34 | DRG 641 ==
LOC: N05A 18:35
PROVIDERS: ADMIT Hospitalist; ATTEND Hospitalist
PROC: 0DH63UZ Insertion of Feeding Device into Stomach, Percutaneous Approach (ICD-10-PCS; principal; 2017-03-02 11:53)
PROC: 0DJ08ZZ Inspection of Upper Intestinal Tract, Via Natural or Artificial Opening Endoscopic (ICD-10-PCS; 2017-03-02 11:53)
DX: E43 Unspecified severe protein-calorie malnutrition (principal); R64 Cachexia; I82.412 Acute embolism and thrombosis of left femoral vein; I50.9 Heart failure, unspecified; F31.4 Bipolar disorder, current episode depressed, severe, without psychotic features; Z68.1 Body mass index [BMI] 19.9 or less, adult; R63.0 Anorexia; E03.9 Hypothyroidism, unspecified; R53.1 Weakness; I25.10 Atherosclerotic heart disease of native coronary artery without angina pectoris; Z87.891 Personal history of nicotine dependence; D50.9 Iron deficiency anemia, unspecified
CPT/HCPCS: 80048; 80053; 83735; 84100; 85025; 85027; C9113; J1650; J1956

== ENCOUNTER 2017-05-30 15:55 | Emergency (ER) | payer MEDICARE, OTHER ==
[~2017-05-30] VITALS: Ht 162.6 cm; Wt 46.7 kg
[~2017-05-30 15:55] MED LIST changes: +ABIL20TA5 PO; +ACET650S PO; -ARIP1TAB7 PO; +FERR325T20 PO; +Free Water G-TUBE; -LEVO88TA2 PO; +SYNT88TA PEG; +XARE15TA PO
[2017-05-30 15:57] VITALS: BP 128/58; PULSE 100; RESP 16; TEMP 98.9; O2SAT 98
[2017-05-30] MEDS ORDERED: RISP0.5T2 PO (16:19)
--- NOTE | 2017-05-30 16:33 | PD ---
HPI Chief Complaint: Edema Time Seen by Provider: 16:21 Travel History International Travel<30 days: No Contact w/Intl Traveler<30days: No Traveled to known affect area: No History of Present Illness HPI The patient was seen and examined in the presence of the nurse. This patient complains of swelling and pain in the left leg. She had a DVT diagnosed 3 months ago by ultrasound while she was an inpatient. She was supposed to be taking Xarelto but she stopped it after a month of treatment because her sister told her it could cause her side effects. Her physician told her to keep taking it but she stopped that anyway. Yesterday she developed swelling and discomfort in the left leg. No injury. No fever. Symptoms severity is moderate. No alleviating factors. Symptoms exacerbated by her noncompliance. She's been off blood thinners for 2 months. PFSH Past Medical History Arthritis: No Asthma: No Autoimmune Disease: No Blood Disorders: No Bipolar Disorder: Yes Anxiety: Yes Depression: Yes Heart Rhythm Problems: No Cancer: No Cardiovascular Problems: Yes High Cholesterol: Yes Chemotherapy: No Chest Pain: No Congestive Heart Failure: Yes COPD: No Cerebrovascular Accident: No Coronary Artery Disease: Yes Diabetes: No Diminished Hearing: No Endocrine: Yes (hypothyroidism) Gastrointestinal Disorders: Yes GERD: No Glaucoma: No Genitourinary: No Headaches: No Hepatitis: No Hiatal Hernia: No Hypertension: No Immune Disorder: Yes Kidney Stones: Yes Musculoskeletal: Yes Neurologic: Yes Psychiatric: No Reproductive: No Respiratory: No Immunizations Current: No Migraines: No Myocardial Infarction: No Radiation Therapy: No Renal Failure: No Seizures: No Sickle Cell Disease: No Sleep Apnea: No Thyroid Disease: Yes (hypo) Ulcer: No Tetanus Vaccination: Unknown ?: Not Menopausal: Yes Past Surgical History Abdominal Surgery: Yes (right kidney removed) AICD: No Appendectomy: No Arteriovenous Shunt: No Cardiac Surgery: No Cholecystectomy: No Ear Surgery: No Endocrine Surgery: No Eye Surgery: No Genitourinary Surgery: No Gynecologic Surgery: No Insulin Pump: No Joint Replacement: No Neurologic Surgery: Yes (CERVICAL FUSION) Oral Surgery: No Pacemaker: No Thoracic Surgery: Yes (cardiac cath diagnostic) Other Surgery: Yes Social History Alcohol Use: No Tobacco Use: No (quit) Substance Use: No Allergies-Medications (Allergen,Severity, Reaction): Coded Allergies: penicillin G (Unverified Allergy, Intermediate, Hives, 05/30/17) diatrizoate meglumine (Unverified Allergy, Mild, PT DOES NOT REMEMBER, ) gadobenic acid (Unverified Allergy, Mild, PT DOES NOT REMEMBER, 05/30/17) gadodiamide (Unverified Allergy, Mild, PT DOES NOT REMEMBER, 05/30/17) gadoteridol (Unverified Allergy, Mild, PT DOES NOT REMEMBER, 05/30/17) iodixanol (Unverified Allergy, Mild, PT DOES NOT REMEMBER, 05/30/17) iohexol (Unverified Allergy, Mild, PT DOES NOT REMEMBER, 05/30/17) Reported Meds & Prescriptions Reported Meds & Active Scripts Active Xarelto (Rivaroxaban) 15 Mg Tab 15 Mg PO Q12HR 21 Days Xarelto (Rivaroxaban) 15 Mg Tab 15 Mg PO BID Synthroid (Levothyroxine Sodium) 88 Mcg Tab 88 Mcg PEG DAILY@0600 Acetaminophen 650 Mg/20.3 Ml Solution 650 Mg PO Q6H PRN Reported Risperidone 0.5 Mg Tab 0.5 Mg PO HS Abilify (Aripiprazole) 20 Mg Tab 20 Mg PO DAILY Nortriptyline (Nortriptyline HCl) 25 Mg Cap 25 Mg PO HS Lamictal (Lamotrigine) 150 Mg Tab 150 Mg PO HS Propranolol (Propranolol HCl) 10 Mg Tab 10 Mg PO BID Pravachol (Pravastatin) 40 Mg Tab 40 Mg PO DAILY Review of Systems General / Constitutional: No: Fever Eyes: No: Visual changes HENT: No: Headaches Cardiovascular: No: Chest Pain or Discomfort Respiratory: No: Shortness of Breath Gastrointestinal: No: Abdominal Pain Genitourinary: No: Dysuria Musculoskeletal: Positive: Edema, Pain Skin: No Rash Neurologic: No: Weakness Psychiatric: No: Depression Endocrine: No: Polydipsia Hematologic/Lymphatic: No: Easy Bruising Physical Exam Narrative GENERAL: Thin elderly well-developed patient in no apparent distress. SKIN: Focused skin assessment reveals no rash and nodules. Skin is Warm and dry. HEAD: Atraumatic. Normocephalic. EYES: Pupils equal and round. No scleral icterus. No injection or drainage. ENT: No nasal bleeding or discharge. Mucous membranes pink and moist. NECK: Trachea midline. No JVD. CARDIOVASCULAR: Regular rate and rhythm. No murmur appreciated. RESPIRATORY: No accessory muscle use. Clear to auscultation. Breath sounds equal bilaterally. GASTROINTESTINAL: Abdomen soft, non-tender, nondistended. Hepatic and splenic margins not palpable. Has a dressing over the feeding tube site residual hole. MUSCULOSKELETAL: No obvious deformities. No clubbing. No cyanosis. There is some swelling of the left lower leg from the midshin down including the foot. There is tenderness but no drainage or fluctuance. NEUROLOGICAL: Awake and alert. No obvious cranial nerve deficits. Motor grossly within normal limits. Normal speech. PSYCHIATRIC: Appropriate mood and affect; insight and judgment reduced . Data Data Last Documented VS Vital Signs Date Time Temp Pulse Resp B/P (MAP) Pulse Ox O2 Delivery O2 Flow Rate FiO2 05/30/17 15:57 98.9 100 16 128/58 (81) 98 Orders Orders Us Leg Venous Doppler (05/30/17 ) Complete Blood Count With Diff (05/30/17 16:28) Act Partial Throm Time (Ptt) (05/30/17 16:28) Prothrombin Time / Inr (Pt) (05/30/17 16:28) Basic Metabolic Panel (Bmp) (05/30/17 16:34) Labs Laboratory Tests Test 05/30/17 16:40 White Blood Count 7.4 TH/MM3 Red Blood Count 3.59 MIL/MM3 Hemoglobin 10.0 GM/DL Hematocrit 30.7 % Mean Corpuscular Volume 85.4 FL Mean Corpuscular Hemoglobin 27.7 PG Mean Corpuscular Hemoglobin Concent 32.5 % Red Cell Distribution Width 12.4 % Platelet Count 335 TH/MM3 Mean Platelet Volume 8.3 FL Neutrophils (%) (Auto) 67.6 % Lymphocytes (%) (Auto) 21.9 % Monocytes (%) (Auto) 6.6 % Eosinophils (%) (Auto) 2.8 % Basophils (%) (Auto) 1.1 % Neutrophils # (Auto) 5.0 TH/MM3 Lymphocytes # (Auto) 1.6 TH/MM3 Monocytes # (Auto) 0.5 TH/MM3 Eosinophils # (Auto) 0.2 TH/MM3 Basophils # (Auto) 0.1 TH/MM3 CBC Comment DIFF FINAL Differential Comment Prothrombin Time 10.0 SEC Prothromb Time International Ratio 0.9 RATIO Activated Partial Thromboplast Time 29.2 SEC Blood Urea Nitrogen 13 MG/DL Creatinine 0.65 MG/DL Random Glucose 74 MG/DL Calcium Level 8.6 MG/DL Sodium Level 140 MEQ/L Potassium Level 4.1 MEQ/L Chloride Level 105 MEQ/L Carbon Dioxide Level 29.9 MEQ/L Anion Gap 5 MEQ/L Estimat Glomerular Filtration Rate 90 ML/MIN MDM Medical Decision Making Medical Screen Exam Complete: Yes Emergency Medical Condition: Yes Medical Record Reviewed: Yes Differential Diagnosis DVT, noncompliance, soft tissue injury, cellulitis Narrative Course I have reviewed the patient's electronic medical record. She had a positive ultrasound for DVT of the left leg February 2017 IV placed CBC is normal Coagulation studies is normal Metabolic profile is normal Ultrasound of left leg shows residual clotting in the left leg, not as bad as prior but still present Had a lengthy discussion about compliance. We discussed risks of bleeding with this medication including intracranial hemorrhage GI bleed etc. She is going to restart the medication and I advised her to call her physician Sunday to discuss what's been going on with her. I wrote her for 3 weeks of the medication Diagnosis Primary Impression: DVT (deep venous thrombosis) Qualified Codes: I82.412 - Acute embolism and thrombosis of left femoral vein Additional Instructions: The patient was advised to follow up with their physician and return if they worsen. Med/Other Pt SpecificInfo: Prescription(s) given Scripts Rivaroxaban (Xarelto) 15 Mg Tab 15 MG PO Q12HR for Blood Clot Prevention for 21 Days, TAB 0 Refills Prov: Vj Tineo MD 05/30/17 Rivaroxaban (Xarelto) 15 Mg Tab 15 MG PO BID for Blood Clot Prevention, #21 TAB Prov: Vj Tineo MD 05/30/17 Disposition: 01 DISCHARGE HOME Condition: Stable Vj Tineo MD May 30, 2017 16:33
[2017-05-30 16:49] LABS: BASOPHIL # 0.1 TH/MM3 (0-0.2); BASOPHIL % 1.1 % (0.0-2.0); EOSINOPHIL # 0.2 TH/MM3 (0-0.4); EOSINOPHIL % 2.8 % (0.0-4.0); HEMATOCRIT 30.7 % (35.0-46.0); LYMPH % 21.9 % (9.0-44.0); LYMPHOCYTE # 1.6 TH/MM3 (1.0-4.8); MEAN CELL VOLUME 85.4 FL (80.0-100.0); MEAN CORPUSCULAR HEMOGLOBIN 27.7 PG (27.0-34.0); MEAN CORPUSCULAR HGB CONC 32.5 % (32.0-36.0); MONO % 6.6 % (0.0-8.0); NEUT % 67.6 % (16.0-70.0); PLATELET COUNT 335 TH/MM3 (150-450); RED BLOOD COUNT 3.59 MIL/MM3 (4.00-5.30); RED CELL DISTRIBUTION WIDTH 12.4 % (11.6-17.2); WHITE BLOOD COUNT 7.4 TH/MM3 (4.0-11.0)
[2017-05-30 16:52] LABS: HEMO FLAGS DIFF FINAL
[2017-05-30 17:06] LABS: POTASSIUM 4.1 MEQ/L (3.5-5.1)
[2017-05-30 17:09] LABS: BICARBONATE 29.9 MEQ/L (21.0-32.0)
[2017-05-30 17:10] LABS: APTT (PATIENT) 29.2 SEC (24.3-30.1); INTERNATIONAL NORMALIZED RATIO 0.9 RATIO
--- NOTE | 2017-05-30 17:55 | RADRPT ---
EXAM DATE/TIME: 05/30/2017 17:29 [facility] COMPARISON: US LEG BILATERAL VENOUS DOPPLER, February 24, 2017, 17:44. INDICATIONS : Left foot swelling. MEDICAL HISTORY : Congestive heart failure. Hypercholesterolemia. Hypothyroidism. Coronary artery disease. Kidney stone s. Jaundice. Depression. Anxiety. SURGICAL HISTORY : Nephrectomy, right. Cervical fusion. Cardiac Catheterization. ENCOUNTER: Subsequent ACUITY: 4 - 6 days PAIN SCORE: 2/10 LOCATION: Left leg. TECHNIQUE: Venous ultrasound of the leg was performed from the inguinal ligament to the proximal calf. Real-byron e, color Doppler and spectral tracing, compression and augmentation techniques were used. FINDINGS: There are portions of the common femoral vein and the proximal and mid superficial femoral veins with residual hypoechoic thrombus. The vein is noncompressible. The popliteal vein peroneal vein posterio r tibial veins are patent and compressible. CONCLUSION: There is residual thrombus in the common femoral vein in the superior portions of the superficial fem oral vein. Overall improved since February. Rigoberto Dinh MD on May 30, 2017 at 17:51 Board Certified Radiologist. This report was verified electronically.
[2017-05-30] MEDS ORDERED: XARE15TA PO ×2 (18:16)
== END 2017-05-30 18:28 | disposition home or self-care (01) ==
LOC: PHED 15:55
DX: I82.412 Acute embolism and thrombosis of left femoral vein (principal); I50.9 Heart failure, unspecified; I25.10 Atherosclerotic heart disease of native coronary artery without angina pectoris; E78.00 Pure hypercholesterolemia, unspecified; F31.9 Bipolar disorder, unspecified; Z91.19 Patient's noncompliance with other medical treatment and regimen; Z86.718 Personal history of other venous thrombosis and embolism; Z88.0 Allergy status to penicillin; Z79.899 Other long term (current) drug therapy
CPT/HCPCS: 80048; 85025; 85610; 85730; 93971